=== PATIENT | male | born 1980 | race American Indian/Alaskan Native ===

== ENCOUNTER 2019-02-17 20:16 | Emergency (ER) | payer MEDICARE, OTHER ==
[~2019-02-17] VITALS: Ht 182.9 cm; Wt 77.1 kg
[~2019-02-17 20:16] MED LIST: ACETAMINOPHEN325 M1 PO; ANAFRANIL50 MG NG; ANAFRANIL50 MG PO; ATIVAN2 MG PO; CHLORPROMAZINE200 MG PO; CLOMIPRAMINE HC50 MG NG; CLOMIPRAMINE HC50 MG PO; CLONAZEPAM2 MG PO; CLOZAPINE100 MG PO; CLOZAPINE25 MG PO; CLOZARIL100 MG PO; DOXYCYCLINE HY100 MG PO; KEFLEX500 MG PO; NORCO 5-325 TA1 EACH PO; OLANZAPINE10 MG PO; PREDNISONE20 MG PO; TUMS X-STR300 MG PO; ZYPREXA10 M1 IM
--- OUTSIDE RECORDS SUMMARY | 2019-02-17 20:20 | XMS ---
PreManage Notification: CLOTILDE JONAS Security Taxicab Coordinator Events No recent Security Events currently on file [place] [facility] [place] [facility] Adult Mental Health Provider Current Foster Home PHONE: [phone] Guidelines Source: [facility] [place] Guidelines Date: 02/14/2018 Additional Information: Currently placed at [facility], contact Jean Marie Daugherty [phone].\T\nbsp; Legal guardian Evita Laurent [phone].\T\ nbsp; All prescription medications are being processed through [facility] [phone]. E.D. VISIT COUNT (12 MO.) [address] [place] [address] TOTAL 1 NOTE: Visits indicate total known visits. ED/UCC VISIT TRACKING (12 MO.) 02/17/2019 20:17 [facility] [place] TYPE: Emergency COMPLAINT: - UPSET STOMACH INPATIENT VISIT TRACKING (12 MO.) No inpatient visits to display in this time frame [email or web address]
[2019-02-17] MEDS ORDERED: BENZTROPINE ME0.5 MG PO (21:14)
== END 2019-02-18 01:52 | disposition home or self-care (01) ==
LOC: ED 20:16
DX: K52.9 Noninfective gastroenteritis and colitis, unspecified (principal); F17.200 Nicotine dependence, unspecified, uncomplicated; Z88.0 Allergy status to penicillin; Z88.6 Allergy status to analgesic agent; Z88.8 Allergy status to other drugs, medicaments and biological substances; Z79.899 Other long term (current) drug therapy
CPT/HCPCS: 80053; 81001; 83735; 85025; 87177; 87209; 87493; 96361; 96374; 99284-25; J2405; J7030; J7040

== ENCOUNTER 2019-02-22 12:51 | Emergency (ER) | payer MEDICARE, OTHER ==
[~2019-02-22] VITALS: Ht 182.9 cm; Wt 77.1 kg
[~2019-02-22 12:51] MED LIST changes: +BENZTROPINE ME0.5 MG PO
--- OUTSIDE RECORDS SUMMARY | 2019-02-22 12:54 | XMS ---
PreManage Notification: CLOTILDE JONAS Security [employer] Events No recent Security Events currently on file CRITERIA MET - [facility] - Has Care Guidelines - [facility] - 2 Visits in 30 Days CARE PROVIDERS ASHANTI MILLER Nurse Practitioner: Family 02/19/2019-Current PHONE: Unknown Maliha Dahl Adult Mental Health Provider Current [facility] PHONE: [phone] Guidelines Source: [facility] Guidelines Date: 02/20/2019 Additional Information: Mental health services are being provided by [facility].\T\nbsp; Please contact [facility] with mental health concerns.\T\nbsp; Bandar/Kamar Dailey: \T\nbsp; Rodrigue: [phone]. Care History Medical/Surgical 02/19/2019 [facility] - Patient is currently established with [facility]. If patient is seen in the ED during business hours. Please contact CHWs at [facility]. Care Recommendation: This patient has had 5 or more Emergency Department visits in the last 12 months.\T\nbsp; Patient requires education on the scope and purpose of the ED as an acute care provider not a Primary Care Provider and should not be utilized for chronic conditions.\T\nbsp; These are guidelines and the provider should exercise clinical judgment when providing care. E.D. VISIT COUNT (12 MO.) 2 [facility] TOTAL 2 NOTE: Visits indicate total known visits. ED/UCC VISIT TRACKING (12 MO.) 02/22/2019 12:51 [facility] [place] TYPE: Emergency COMPLAINT: - MEDICAL CLEARANCE 02/17/2019 20:[address] [facility] [place] TYPE: Emergency COMPLAINT: - UPSET STOMACH DIAGNOSES: - Other fci (current) drug therapy - Nausea with vomiting, unspecified - Allergy status to analgesic agent status - Noninfective gastroenteritis and colitis, unspecified - Allergy status to penicillin - Allergy status to other drugs, medicaments and biological substances status - Nicotine dependence, unspecified, uncomplicated INPATIENT VISIT TRACKING (12 MO.) No inpatient visits to display in this time frame [email or web address]
== END 2019-02-25 06:47 ==
LOC: ED 12:51
DX: F23 Brief psychotic disorder (principal); F17.200 Nicotine dependence, unspecified, uncomplicated; Z88.6 Allergy status to analgesic agent; Z88.0 Allergy status to penicillin; Z88.8 Allergy status to other drugs, medicaments and biological substances; Z79.899 Other long term (current) drug therapy
CPT/HCPCS: 36415; 80053; 80176; 81001; 84443; 85025; 99285; G0480; J2060

== ENCOUNTER 2019-04-13 15:48 | Emergency (ER) | payer MEDICARE, OTHER ==
[~2019-04-13] VITALS: Ht 182.9 cm; Wt 77.1 kg
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
[2019-04-13] MEDS ORDERED: OXCARBAZEPINE300 MG PO (16:29)
[2019-04-13] MEDS ORDERED: INVEGA SUS156 MG/1 M IM (16:30)
== END 2019-04-13 20:15 | disposition short-term general hospital (02) ==
LOC: ED 15:48
DX: F25.9 Schizoaffective disorder, unspecified (principal); F17.200 Nicotine dependence, unspecified, uncomplicated; Z88.0 Allergy status to penicillin; Z88.5 Allergy status to narcotic agent; Z88.6 Allergy status to analgesic agent
CPT/HCPCS: 80053; 80176; 81001; 84443; 85025; 99284; G0480

== ENCOUNTER → 2020-02-12 | Emergency (ER) | payer MEDICARE, OTHER ==
[~2020-02-12] VITALS: Ht 182.9 cm; Wt 77.1 kg
[~2020-02-12] MED LIST changes: +INVEGA SUS156 MG/1 M IM; +OXCARBAZEPINE300 MG PO
--- OUTSIDE RECORDS SUMMARY | ~2020-02-12 | XMS | Encounter Summary ---
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 + | | + + + + + + + | Performing | Address | City/State/Zipcode | Phone Number | | Organization | | | | + + + + + | [facility] DEPARTMENT | [address] | [place] [address] | | | PATHOLOGY | [address] | | | + + + + + CARBAMAZEPINE, PLASMA (10/31/2009 11:55 AM PST) + + + + + + | Component | Value | Ref Range | Performed | Pathologist | | | | | At | Signature | + + + + + + | CARBAMAZEPI | Combined. | 4.0 - 12.0 | [facility] | | | NE | | ug/mL | DEPARTMENT | | | CONCENTRATI | | | OF | | | ON | | | PATHOLOGY | | + + + + + + + + | Specimen | + + | Blood - Blood | + + + + + + + | Performing | Address | City/State/Zipcode | Phone Number | | Organization | | | | + + + + + | [facility] | [address] | [place] [address] | | | PATHOLOGY | [address] | | | + + + + + CBC, WITH DIFFERENTIAL (10/31/2009 11:55 AM PST) + +-------+ + + + | Component | Value | Ref Range | Performed | Pathologist | | | | | At | Signature | + +-------+ + + + | WHITE CELL | 5.2 | 4.4 - 11.0 K/cu | [facility] | | | COUNT | | mm | DEPARTMENT | | | | | | OF | | | | | | PATHOLOGY | | + +-------+ + + + | RED CELL | 4.88 | 4.50 - 5.90 | [facility] | | | COUNT | | M/cu mm | DEPARTMENT | | | | | | OF | | | | | | PATHOLOGY | | + +-------+ + + + | HEMOGLOBIN | 15.5 | 13.5 - 17.5 | [facility] | | | | | g/dL | DEPARTMENT | | | | | | OF | | | | | | PATHOLOGY | | + +-------+ + + + | HEMATOCRIT | 45.6 | 41.0 - 53.0 % | [facility] | | | | | | DEPARTMENT | | | | | | OF | | | | | | PATHOLOGY | | + +-------+ + + + | MCV | 93.5 | 80.0 - 96.0 fL | [facility] | | | | | | DEPARTMENT | | | | | | OF | | | | | | PATHOLOGY | | + +-------+ + + + | MCHC | 34.0 | 33.4 - 35.5 | [facility] | | | | | g/dL | DEPARTMENT | | | | | | OF | | | | | | PATHOLOGY | | + +-------+ + + + | RDW | 12.5 | 11.5 - 15.0 % | [facility] | | | | | | DEPARTMENT | | | | | | OF | | | | | | PATHOLOGY | | + +-------+ + + + | PLATELET | 233 | 150 - 400 K/cu | [facility] | | | COUNT | | mm | DEPARTMENT | | | | | | OF | | | | | | PATHOLOGY | | + +-------+ + + + + + | Specimen | + + | Blood - Blood | + + + + + + + | Performing | Address | City/State/Zipcode | Phone Number | | Organization | | | | + + + + + | [facility] | [address] | [place] [address] | | | PATHOLOGY | [address] | | | + + + + + TSH (10/31/2009 11:55 AM PST) + +-------+ + + + | Component | Value | Ref Range | Performed | Pathologist | | | | | At | Signature | + +-------+ + + + | TSH | 0.71 | 0.34 - 5.60 | [facility] | | | | | uIU/ml | REGIONAL | | | | | | LABORATORY | | + +-------+ + + + + + | Specimen | + + | Blood - Blood | + + + + + | Narrative | Performed At | + + + | [facility] ([facility]) | [facility] | | [facility] [place] [address] [facility] | REGIONAL | | [place] [address] | LABORATORY | + + + + + + + + | Performing | Address | City/State/Zipcode | Phone Number | | Organization | | | | + + + + + | [facility] | [address] | [place] [address] | | | LABORATORY | | | | + + + + + COMPLETE METABOLIC SET (NA,K,CL,CO2,BUN,CREAT,GLUC,CA,AST,ALT,BILI TOTAL,ALK PHOS,ALB,PROT TOTAL) (10/31/2009 11:55 AM PST) + +-------+ + + + | Component | Value | Ref Range | Performed | Pathologist | | | | | At | Signature | + +-------+ + + + | GLUCOSE, | 95 | 60 - 99 mg/dL | [facility] | | | PLASMA | | | DEPARTMENT | | | (LAB) | | | OF | | | | | | PATHOLOGY | | + +-------+ + + + | BUN, PLASMA | 9 | 6 - 20 mg/dL | [facility] | | | (LAB) | | | DEPARTMENT | | | | | | OF | | | | | | PATHOLOGY | | + +-------+ + + + | CREATININE | 0.92 | 0.70 - 1.30 | [facility] | | | PLASMA | | mg/dL | DEPARTMENT | | | (LAB) | | | OF | | | | | | PATHOLOGY | | + +-------+ + + + | TOTAL | 6.6 | 6.1 - 7.9 g/dL | [facility] | | | PROTEIN, | | | DEPARTMENT | | | PLASMA | | | OF | | | (LAB) | | | PATHOLOGY | | + +-------+ + + + | ALBUMIN, | 4.2 | 3.5 - 4.7 g/dL | [facility] | | | PLASMA | | | DEPARTMENT | | | (LAB) | | | OF | | | | | | PATHOLOGY | | + +-------+ + + + | CALCIUM, | 8.9 | 8.6 - 10.2 | [facility] | | | PLASMA | | mg/dL | DEPARTMENT | | | (LAB) | | | OF | | | | | | PATHOLOGY | | + +-------+ + + + | BILIRUBIN | 0.6 | 0.3 - 1.2 mg/dL | [facility] | | | TOTAL | | | DEPARTMENT | | | | | | OF | | | | | | PATHOLOGY | | + +-------+ + + + | ALK PHOS | 112 | 53 - 128 U/L | [facility] | | | | | | DEPARTMENT | | | | | | OF | | | | | | PATHOLOGY | | + +-------+ + + + | AST(SGOT) | 20 | 15 - 41 U/L | [facility] | | | | | | DEPARTMENT | | | | | | OF | | | | | | PATHOLOGY | | + +-------+ + + + | SODIUM, | 142 | 134 - 143 | [facility] | | | PLASMA | | mmol/L | DEPARTMENT | | | (LAB) | | | OF | | | | | | PATHOLOGY | | + +-------+ + + + | POTASSIUM, | 3.7 | 3.4 - 5.0 | [facility] | | | PLASMA | | mmol/L | DEPARTMENT | | | (LAB) | | | OF | | | | | | PATHOLOGY | | + +-------+ + + + | CHLORIDE, | 106 | 97 - 108 mmol/L | [facility] | | | PLASMA | | | DEPARTMENT | | | (LAB) | | | OF | | | | | | PATHOLOGY | | + +-------+ + + + | TOTAL CO2, | 30 | 23 - 31 mmol/L | [facility] | | | PLASMA | | | DEPARTMENT | | | (LAB) | | | OF | | | | | | PATHOLOGY | | + +-------+ + + + | ALT (SGPT) | 17 | 13 - 48 U/L | [facility] | | | | | | DEPARTMENT | | | | | | OF | | | | | | PATHOLOGY | | + +-------+ + + + + + | Specimen | + + | Blood - Blood | + + + + + + + | Performing | Address | City/State/Zipcode | Phone Number | | Organization | | | | + + + + + | [facility] | [address] | [place] [address] | | | PATHOLOGY | [address] | | | + + + + + documented in this encounter Visit Diagnoses + + | Diagnosis | + + | Psychosis (HCC) - Primary Unspecified psychosis | + + | Schizoaffective disorder (HCC) Schizoaffective disorder, unspecified condition | + + | Alcohol abuse Alcohol abuse, unspecified | + + | Other disorder of impulse control | + + documented in this encounter Administered Medications + +--------+ +--------+------+------+ | Medication Order | MAR | Action | Dose | Rate | Site | | | Action | Date | | | | + +--------+ +--------+------+------+ | carbamazepine (aka TEGRETOL) | Given | 11/01/19 | 100 mg | | | | suspension 100 mg 100 mg, oral, | | 10 12:58 | | | | | THREE TIMES DAILY, First dose on | | PM PST | | | | | 10/31/09 at 1045, Until | | | | | | | Discontinued | | | | | | + +--------+ +--------+------+------+ +---+---+ | | | +---+---+ + +-------+ +--------+---+---+ | Carbamazepine Susp 100 mg 100 | Given | 11/06/19 | 100 mg | | | | mg, oral, THREE TIMES DAILY, | | 10 8:10 | | | | | First dose (after last | | AM PDT | | | | | modification) on Tue10/31/09 at | | | | | | | 1615, Until Discontinued | | | | | | + +-------+ +--------+---+---+ +-------+ +--------+---+---+ | Given | 11/05/19 | 100 mg | | | | | 10 10:00 | | | | | | PM PDT | | | | +-------+ +--------+---+---+ | Given | 11/05/19 | 100 mg | | | | | 10 4:00 | | | | | | PM PDT | | | | +-------+ +--------+---+---+ +---+---+ | | | +---+---+ + +-------+ +------+---+---+ | clonazepam (aka KLONOPIN) | Given | 11/01/19 | 2 mg | | | | tablet 2 mg 2 mg, oral, TWICE | | 10 12:48 | | | | | DAILY, First dose on Tue10/31/09 | | PM PST | | | | | at 1045, Until Discontinued | | | | | | + +-------+ +------+---+---+ +---+---+ | | | +---+---+ + +-------+ +------+---+---+ | clonazepam (aka KLONOPIN) | Given | 11/06/19 | 2 mg | | | | tablet 2 mg 2 mg, oral, TWICE | | 10 8:10 | | | | | DAILY, First dose (after last | | AM PDT | | | | | modification) on Tue10/31/09 at | | | | | | | 2100, Until Discontinued | | | | | | + +-------+ +------+---+---+ +-------+ +------+---+---+ | Given | 11/05/19 | 2 mg | | | | | 10 9:00 | | | | | | PM PDT | | | | +-------+ +------+---+---+ | Given | 11/05/19 | 2 mg | | | | | 10 8:21 | | | | | | AM PDT | | | | +-------+ +------+---+---+ +---+---+ | | | +---+---+ + +-------+ +--------+---+---+ | clozapine (aka CLOZARIL) tablet | Given | 11/01/19 | 200 mg | | | | 200 mg 200 mg, oral, DAILY, | | 10 12:47 | | | | | First dose on Tue10/31/09 at | | PM PST | | | | | 1045, Until Discontinued | | | | | | + +-------+ +--------+---+---+ +---+---+ | | | +---+---+ + +-------+ +--------+---+---+ | clozapine (aka CLOZARIL) tablet | Given | 11/06/19 | 200 mg | | | | 200 mg 200 mg, oral, EVERY | | 10 8:10 | | | | | MORNING, First dose on Sat | | AM PDT | | | | | 11/01/09 at 0900, Until | | | | | | | Discontinued | | | | | | + +-------+ +--------+---+---+ +-------+ +--------+---+---+ | Given | 11/05/19 | 200 mg | | | | | 10 8:21 | | | | | | AM PDT | | | | +-------+ +--------+---+---+ | Given | 11/04/19 | 200 mg | | | | | 10 8:18 | | | | | | AM PDT | | | | +-------+ +--------+---+---+ +---+---+ | | | +---+---+ + +-------+ +--------+---+---+ | clozapine (aka CLOZARIL) tablet | Given | 11/05/19 | 250 mg | | | | 250 mg 250 mg, oral, AT | | 10 10:00 | | | | | BEDTIME, First dose on Tue | | PM PDT | | | | | 10/31/09 at 2200, Until | | | | | | | Discontinued | | | | | | + +-------+ +--------+---+---+ +-------+ +--------+---+---+ | Given | 11/04/19 | 250 mg | | | | | 10 9:10 | | | | | | PM PDT | | | | +-------+ +--------+---+---+ | Given | 11/03/19 | 250 mg | | | | | 10 10:00 | | | | | | PM PDT | | | | +-------+ +--------+---+---+ +---+---+ | | | +---+---+ + +-------+ +------+---+---+ | lorazepam (aka ATIVAN) tablet 2 | Given | 11/05/19 | 2 mg | | | | mg 2 mg, oral, EVERY 4 HOURS | | 10 10:23 | | | | | NEEDED, Starting Tue10/31/09 at | | PM PDT | | | | | 1036, Until Tue11/05/09 at 1529, | | | | | | | moderate to severe anxiety | | | | | | + +-------+ +------+---+---+ +---+---+ | | | +---+---+ + +-------+ +-------+---+---+ | olanzapine zydis oral | Given | 11/05/19 | 10 mg | | | | disintegrating (aka ZYPREXA | | 10 10:23 | | | | | ZYDIS) tablet 10 mg 10 mg, oral, | | PM PDT | | | | | EVERY 2 HOURS NEEDED, | | | | | | | Starting Tue10/31/09 at 1036, | | | | | | | Until Tue11/05/09 at 1529, mild | | | | | | | to moderate agitation | | | | | | + +-------+ +-------+---+---+ +---+---+ | | | +---+---+ + +-------+ +--------+---+---+ | trazodone (aka LYNENTTE) tablet | Given | 11/05/19 | 100 mg | | | | 100 mg 100 mg, oral, AT BEDTIME | | 10 10:23 | | | | | NEEDED, Starting 10/31/09 | | PM PDT | | | | | at 1036, Until 11/05/09 at | | | | | | | 1529, insomnia | | | | | | + +-------+ +--------+---+---+ +---+---+ | | | +---+---+ documented in this encounter
--- OUTSIDE RECORDS SUMMARY | ~2020-02-12 | XMS | Encounter Summary ---
Demographics + + + | Address | [address] | | | [place] [address] | + + + | Home Phone | | + + + | Preferred Language | Unknown | + + + | Marital Status | Single | + + + | [employer] Affiliation | NON | + + + | Race | White | + + + | Ethnic Group | Not or | + + + Author + + + | Author | [facility] | + + + | Organization | [facility] | + + + | Address | Unknown | + + + | Phone | Unavailable | + + + Support + + + + + | Name | Relationship | Address | Phone | + + + + + | Lanny Stern | ECON | [address] | | | | | [place] | | | | | [address] | | + + + + + | Evita Coffey | ECON | Unknown | | + + + + + Care Team Providers + +------+ + | Care Hull Molder Name | Role | Phone | + +------+ + PCP | Unavailable | + +------+ + Encounter Details +--------+ + + + + | Date | Type | Department | Care Team | Description | +--------+ + + + + | 09/27/ | Procedure - | UNKNOWN DEPARTMENT | Other, Faculty | EEG | | 2000 | | [address] [facility] | [phone] | | | | Transcribed | [address] | | | | | | [place], [place] | | | | | | [address] | | | +--------+ + + + [...] throughout this recording reveals a poorly formed ugh-oe-cnehaxyq voltage posterior rhythm ranging between 7 and [...] and no electrographic seizures were encountered. Guy oWodard M.D. [facility] / [id number] / [id number] / [id number] / [id number] C:10/12/2000 documented in this encou nter Plan [...] | Other, Faculty - 09/27/2000 12:00 AM [facility] CLINICAL NEUROPHYSIOLOGY | | | | 24-HOUR [...] recording reveals a poorly formed | | oci-iv-vsznrxeo voltage posterior rhythm ranging between 7 and [...] | | MCS / HS | | [id number] / [id number] / [id number] / [id number] | | | | | | C:10/12/2000 | | | + + documented in this encounter Visit Diagnoses Not on filedocumented in this encounter"
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
--- OUTSIDE RECORDS SUMMARY | ~2020-02-12 | XMS | Encounter Summary ---
Demographics + + + | Address | [address] | | | [place] [address] | + + + | Home Phone | | + + + | Preferred Language | Unknown | + + + | Marital Status | Single | + + + | Synagogue Affiliation | NON | + + + | Race | White | + + + | Ethnic Group | Not or | + + + Author + + + | Author | [facility] | + + + | Organization | [facility] | + + + | Address | Unknown | + + + | Phone | Unavailable | + + + Support + + + + + | Name | Relationship | Address | Phone | + + + + + | Lanny Stern | ECON | [address] | | | | | [place] | | | | | [address] | | + + + + + | Evita Coffey | ECON | Unknown | | + + + + + Care Team Providers + +------+ + | Care Production Engineer Name | Role | Phone | + +------+ + PCP | Unavailable | + +------+ + Encounter Details +--------+ + + + + | Date | Type | Department | Care Team | Description | +--------+ + + + + | 09/26/ | Procedure - | UNKNOWN DEPARTMENT | Other, Faculty | EEG | | 2000 | | [address] [facility] | [phone] | | | | Transcribed | [address] | | | | | | [place], [place] | | | | | | [address] | | | +--------+ + + + [...] + documented as of this encounter Progress Osmel Simental, Faculty - 09/26/2000 12:00 AM PSTAssociated Order(s): EEG ROUTINE CLINICAL NEUROPHYSIOLOGY 24-HR EEG VIDEO RECORDING DATE OF RECORDING: September 26, 2000 CLINICAL NEUROPHYSIOLOGY NO: [id number] INTERPRETATION: DETAIL: During rare alert portions of the recording, rhythms in an alpha band width in the 9-10 Hz range of median amplitude can be seen posteriorly while mixed irregular 4-7 Hz lower amplitude theta activity can be seen more anteriorly, symmetrically, and bilaterally. Some lower amplitude 16-18 Hz beta activity can also be seen super imposed anteriorly, symmetrically, and bilaterally. Most of the recording was obtained with the patient drowsy and asleep. With the patient drowsy, the above described alpha activity becomes even less well formed, and slower rhythms in the 3-5 Hz range can be also be seen at a mixed more anteriorly, symmetrically, and bilaterally. Surges of rhythmic 6 Hz theta activity can also be seen in the bitemporal head regions usually occurring synchronously, bilaterally, but shifting in prominence between the two hemispheres and lasting for periods upwards of 1 to 2 seconds. As the patient lapsed into stage II of sleep, prominent vertex V waves, spindling activities could be seen on a background of mixed theta activity and slow rhythms in the 3-4 Hz range. Stages II, III, and IV sleep were recorded, with characteristic changes. No events were detected on the computer event detection program, and the button was not pushed to record an event. Video monitoring confirmed that the patient was drowsy and asleep throughout most of the recording. No events of hallucinations were noted in the video recording. IMPRESSION: This is a normal electroencephalogram recorded for 24 hours including alert wakefulness, drowsiness, stage II, III, and IV of sleep. No epileptiform discharges were noted. Nino Capps M.D. DECLAN / BRYANT [id number] / [id number] / [id number] / documented in this encou nter Plan of Treatment Not on filedocumented as of this encounter Procedures + +--------+ + + + | Procedure Name | Priori | Date/Time | Associated Diagnosis | Comments | | | ty | | | | + +--------+ + + + | EEG ROUTINE | | 09/26/2000 | | Results for this | | | | 12:00 AM | | procedure are in the | | | | PST | | results section. | + +--------+ + + + documented in this encounter Results EEG ROUTINE (09/26/2000 12:00 AM PST) + + | Procedure Note | + + | Other, Faculty - 09/26/2000 12:00 AM PST | | CLINICAL NEUROPHYSIOLOGY | | | | 24-HR EEG VIDEO RECORDING | | | | DATE OF RECORDING: September 26, 2000 | | | | CLINICAL NEUROPHYSIOLOGY NO: [id number] | | | | | | INTERPRETATION: | | | | DETAIL: During rare alert portions of the recording, rhythms in an alpha | | band width in the 9-10 Hz range of median amplitude can be seen posteriorly | | while mixed irregular 4-7 Hz lower amplitude theta activity can be seen | | more anteriorly, symmetrically, and bilaterally. Some lower amplitude | | 16-18 Hz beta activity can also be seen super imposed anteriorly, | | symmetrically, and bilaterally. Most of the recording was obtained with | | the patient drowsy and asleep. With the patient drowsy, the above | | described alpha activity becomes even less well formed, and slower rhythms | | in the 3-5 Hz range can be also be seen at a mixed more anteriorly, | | symmetrically, and bilaterally. Surges of rhythmic 6 Hz theta activity can | | also be seen in the bitemporal head regions usually occurring | | synchronously, bilaterally, but shifting in prominence between the two | | hemispheres and lasting for periods upwards of 1 to 2 seconds. As the | | patient lapsed into stage II of sleep, prominent vertex V waves, spindling | | activities could be seen on a background of mixed theta activity and slow | | rhythms in the 3-4 Hz range. Stages II, III, and IV sleep were recorded, | | with characteristic changes. | | | | No events were detected on the computer event detection program, and the | | button was not pushed to record an event. Video monitoring confirmed that | | the patient was drowsy and asleep throughout most of the recording. No | | events of hallucinations were noted in the video recording. | | | | IMPRESSION: This is a normal electroencephalogram recorded for 24 hours | | including alert wakefulness, drowsiness, stage II, III, and IV of sleep. | | No epileptiform discharges were noted. | | | | | | | | | | Nino Capps M.D. | | | | DS / HS | | [id number] / [id number] / [id number] / | | | | | | | + + documented in this encounter Visit Diagnoses Not on filedocumented in this encounter"
--- OUTSIDE RECORDS SUMMARY | ~2020-02-12 | XMS | Encounter Summary ---
Demographics + + + | Address | [address] | | | [place] [address] | + + + | Home Phone | | + + + | Preferred Language | Unknown | + + + | Marital Status | Single | + + + | Mandaen Affiliation | NON | + + + | Race | White | + + + | Ethnic Group | Not or | + + + Author + + + | Author | [facility] | + + + | Organization | [facility] | + + + | Address | Unknown | + + + | Phone | Unavailable | + + + Support + + + + + | Name | Relationship | Address | Phone | + + + + + | Lanny Stern | ECON | [address] | | | | | [place] | | | | | [address] | | + + + + + | Evitaduarte Coffey | ECON | Unknown | | + + + + + Care Team Providers + +------+ + | Care Tongue And Quarter Stitcher Name | Role | Phone | + +------+ + PCP | Unavailable | + +------+ + Encounter Details +--------+ + + + + | Date | Type | Department | Care Team | Description | +--------+ + + + + | 06/03/ | Discharge | Allergy Clinic at | Summary, Discharge | D/C Summary ODDS | | 1996 | Summary-Tra | [facility] [address] | | | | | nscribed | [address] | | | | | | [place] [address] | | | | | | [address] | | | | | | [place], [place] | | | | | | [address] | | | | | | [phone] | | | +--------+ + + + [...] as of this encounter Discharge Summaries Interface, Sea Shell Gatherer In - 10/04/2006 1:01 AM PST [address] [address] [facility] MEDICAL SUMMARY OF HOSPITALIZATION Med Rec No.: [id number] Admission Date: 05/27/97 Name: Willi Toledo Discharge Date: 06/03/97 STAFF PHYSICIAN: Ramos Ojeda M.D. Director Trading, Psychiatry DSM-IV DIAGNOSIS: AXIS I:Schizophrenia, undifferentiated. AXIS II:Deferred. AXIS III:No active medical problems. AXIS IV:Institutional living environment, court commitment. AXIS V:Global Assessment of Functioning on admission 25, Global Assessment of Functioning on discharge 25. PRINCIPAL PROCEDURE: Psychopharmacotherapy. ADDITIONAL PROCEDURE(S): 1. Electroencephalography. 2. Magnetic resonance imaging of the brain. REASON FOR ADMISSION: Mr. Willi Toledo is an 17-year-old male who is civilly committed for the treatment of mental illness. He has been treated at [facility] since late January 1997. His mental status was essentially unchanged from February 13 to the date of admission. He is referred to [facility] for evaluation and treatment recommendations. HISTORY OF PRESENT ILLNESS: The patient apparently had a normal course of development through childhood and had been an average student in school until the age of 15 years. It should be noted, however, that the patient reports that both parents were heavy alcohol drinkers. The question of alcohol exposure is relevant. The patient reports that one day he went to school and became very afraid. He was initially unaware of the reason why he felt this way, but later realized that it was because the way the people were sniffing. He also reports being able to "put things together" around this time period. By this statement he refers to a pattern of idiosyncratic reasoning and magical thinking. He reports hearing names on the radio which are actually codes for other names and he relates this to "anagrams" which have special significance, although he does not elaborate on this point. He also began to interpret ordinary events in special ways. For example, he reports at one time seeing a rabbit and realizing this meant that he should jump into cold water. There is a strong element of taoism perseveration in the patient's thought content. He reports getting messages from God, most of these messages take the form of ordinary events such as things falling to the floor or birds flying in the air. He denies experiencing auditory hallucinations. He states that he has had a vision of the world on fire, but aside from this, he denies visual hallucination. He does not give a history of euphoria accompanied by extended periods of insomnia. He does not give a history of depressive episodes or suicidal attempts. He denies thought broadcasting or thought insertion. He states that his only drugs of abuse in the past have been marijuana and ethanol. He denies I.V. drug use. He states that at one time he was smoking marijuana with friends and a substance was sprayed onto the marijuana cigarettes, but he does not know what that substance was. PAST PSYCHIATRIC HISTORY: No history of psychiatric illness prior to 15 years of age as noted above. PAST MEDICAL HISTORY: The patient reports sustaining a head injury when he was [age] years old. He denies loss of consciousness associated with that injury. Transfer notes accompanying the patient to [facility] mention an abnormal EEG obtained at a hospital in [place], [place]. MEDICATIONS: While at [facility], the patient was tried on a variety of medications including neuroleptics, mood stabilizers, and anti-depressants. The patient medication regimen as gleaned from transfer notes is as follows: 1. Olanzapine 5 mg from 02/13/97 to 03/04/97. 2. Olanzapine 10 mg from 02/22/97 to 03/06/97. On 03/06/97 Olanzapine was discontinued. 3. Risperdal 6 mg per day. 4. Risperdal 8 mg per day, on 04/04/97, discontinued on 04/08/97. 5. Olanzapine 10 mg per day reinstituted 04/08/97 to 04/24/97 at that point Olanzapine was tapered off. 6. Prolixin 10 mg per day started at the taper of Olanzapine, increased to 30 mg a day by 05/21/97. At that Prolixin was discontinued. 7. Thorazine 300 mg per day was started 05/21/97. During that period of time a trial of Depakote was initiated in conjunction with neuroleptics. 8. Depakote at 1,000 mg per day was begun on 03/18/97. It was increased to 1,500 mg per day on 04/05/97, but by 04/12/97 Depakote was tapered off in favor of [place] therapy. 9. [place] was begun at 600 mg per day, increased to 900 mg per day on 04/19/97, reduced to 600 mg per day on 05/06/97 and discontinued around 05/16/97 when Depakote at 1,000 mg per day was restarted. 10. Fluoxetine in conjunction with [place] and neuroleptics was begun on 04/16/97. From 04/16/97 to 04/24/97 the dose was 10 mg. From 04/24/97 to 05/07/97 the dose was 20 mg. Fluoxetine was discontinued on 05/07/97. ALLERGIES: The patient report an allergy to Erythromycin. The patient reports dystonic reactions to Navane and Risperdal. SOCIAL HISTORY: The patient had lived with his mother and father. He states that he is not able to return to his parent's house in [place] upon his discharge. He reports being an average student with no legal problems until he was 15 years old. He reports being sexually active since the age of 12. He estimates having had six sexual partners, all female. FAMILY HISTORY: The patient's mother and father have used Ethanol heavily and chronically. The patient reports no other mental illness in his immediate family. MENTAL STATUS EXAMINATION: The patient is alert and oriented to person. He states that he is in [place] at the "[facility]." He identifies the date incorrectly as 05/15/97. He is cooperative. He is inattentive and easily distracted. He is clean and well groomed. His speech is spontaneous. He speaks in rapid and garbled bursts. There is no pressure of speech. The thought process is tangential. His thought content is notable for frequent references to getting messages from God and finding special meaning in ordinary events. He denies having special obregon. He denies auditory and visual hallucinations. He denies suicidal and homicidal ideations. He denies ideas of reference. He endorses paranoia over several subjects. He states his mood is depressed. His affect is silly and inappropriate. His attention and concentration are impaired. He registration is 3/3 and recall is 2/3 at 5 minutes. Abstract reasoning is grossly intact. His insight and judgment are impaired. PHYSICAL EXAMINATION: HEENT: The head is normocephalic with no evidence of head trauma. Pupils were equal, round, and reactive to light and accommodation. Extraocular movements intact. Nose, ears, and oropharynx are without lesions. NECK: Supple without thyromegaly or lymphadenopathy. LUNGS: Clear to auscultation bilaterally. CARDIAC: Regular rate and rhythm with no adventitial sounds. ABDOMEN: Soft, nontender, nondistended with normoactive bowel sounds. GENITALIA: External genitalia are without lesions or discharge. EXTREMITIES: Notable for multiple healing wounds on the soles of both feet which are noted to have occurred when he was running barefoot following escape from his previous treatment facility. NEUROLOGIC: Cranial nerves II through XII are intact. Power is 5/5 in all extremities. There are no sensory deficits and station and gait are normal. LABORATORY DATA: Blood chemistry including renal tests and liver function tests are within normal limits. CBC is unremarkable. Urinalysis is unremarkable. Urine drug screen is negative. The serum RPR is nonreactive. TSH level is 2.0 which is within normal limits. HOSPITAL COURSE: The patient was admitted to [facility] for assessment, observation, and treatment. An MRI of the brain was obtained. This study revealed the presence of a small old resolved hemorrhage in the posterior right parietal cortex. Otherwise, the study was unremarkable. The lateral ventricles were of normal size. An electroencephalogram was obtained. No abnormal electrical activity was detected. The patient's mental status continued unchanged. He made references at times to "putting things together." He was noted at one point to suddenly become tearful while eating lunch. Initially, he did not elaborate as to why he became tearful. However, the following day he stated that he began crying because he suddenly realized what it must have felt like for the sasha Shahram to fall from the graces of God and become Satan. He made references to figuring out new ways to fly and to receiving more messages related to codes and anagrams. His activity level was noted to be essentially normal. He slept well. No signs of betsy were observed. During the last four days of his hospitalization, the patient frequently refused food and drink. He stated that he believed the food and drink were contaminated with feces. He was persuaded to eat when informed that consistent refusal to take food and water may result in the placement of a nasogastric tube. The patient was uncooperative with neuropsychological testing. He could not be persuaded into cooperating with neuropsychological tests. Following completion of the MRI and EEG studies a diagnosis of undifferentiated schizophrenia was made. Patient was begun on Olanzapine 5 mg b.i.d. for one day. The dose was then increased to 10 mg b.i.d. The patient was discharged to [facility] on 06/03/97. Medical workup at [facility] failed to reveal any organic cause of his current mental status. It is our opinion that a trial of Olanzapine at high doses (20 to 30 mg per day) for up to four weeks be initiated. Should this fail to result in improvement, a sustained trial of another neuroleptic at relatively high doses should be attempted. Should that also fail, a trial of Clozaril may be indicated. CONDITION ON DISCHARGE: See above. DISCHARGE MEDICATION(S): 1. Olanzapine 10 mg p.o. b.i.d. DISCHARGE INSTRUCTION(S): Diet: General. Activity: As tolerated. Followup: The patient is transferred to [facility] where he is court committed for treatment of mental illness. Doni Soriano M.D. Resident, Psychiatry Ramos Ojeda M.D. Director Trading, Psychiatry NAZARIO/myranda P FAX: [phone] cc: [place] [phone] documented in this encounter Plan of Treatment Not on filedocumented as of this encounter Visit Diagnoses Not on filedocumented in this encounter
--- OUTSIDE RECORDS SUMMARY | ~2020-02-12 | XMS | Clinical Summary ---
Demographics + + + | Address | [address] | | | [place] [address] | + + + | Home Phone | | + + + | Preferred Language | Unknown | + + + | Marital Status | Single | + + + | Orthodox Affiliation | 1013 | + + + | Race | Unknown | + + + | Ethnic Group | Unknown | + + + Author + + + | Author | [facility] | | | and [place] | + + + | Organization | [facility] | | | and [...] Team Providers + +------+ + | Care Pumpman Name | Role | Phone | + +------+ + PCP | Unavailable | + +------+ + Allergies Not on File Medications Not on file Active Problems Not on file Social History + +-------+ +--------+------+ | Tobacco [...] on file | | + + + Last Filed Vital Signs Not on file Plan of Treatment + + +-------+ + | Health Maintenance | Due Date | Last | Comments | | | | Done | | + + +-------+ + | Vaccine: | | | | | Dtap/Tdap/Td (1 - | 8 | | | | Tdap) | | | | + + +-------+ + | Vaccine: Influenza | | | | | (Season Ended) | 0 | | | + + +-------+ + Results Not on filefrom Last 3 Months"
--- OUTSIDE RECORDS SUMMARY | ~2020-02-12 | XMS | Encounter Summary ---
Demographics + + + | Address | [address] | | | [place] [address] | + + + | Home Phone | | + + + | Preferred Language | Unknown | + + + | Marital Status | Single | + + + | Mandaeism Affiliation | NON | + + + [...] [place] | | | | | [address] | | + + + + + | Evita Coffey | ECON | Unknown | | + + + + + Care Team Providers + +------+ + | Care Floor Renovator Name | Role | Phone | + +------+ + PCP | Unavailable | + +------+ + Encounter Details +--------+ + + + + | Date | Type | Department | Care Team | Description | +--------+ + + + + | 09/24/ | Results | | Other, Faculty | | | 2000 | Only | | [phone] | | +--------+ + + + + [...] | + + + + + | [facility] DEPARTMENT OF | [address] [facility] | [place] [address] | | | PATHOLOGY | [address] | | | + + + + + | [facility] DEPARTMENT OF | [address] [facility] [facility] | [place] [address] | | | PATHOLOGY | [address] [...] [facility] DEPARTMENT OF | [address] [facility] [facility] | [place] [address] | | | PATHOLOGY | [address] | | | + + + + + | [facility] DEPARTMENT OF | [address] | [place] [address] | | | PATHOLOGY | [address] [...] | + + + + + | [facility] DEPARTMENT OF | [address] | [place] [address] | | | PATHOLOGY | [address] | | | + + + + + | [facility] | [address] | [place] [address] | | | PATHOLOGY | [address] [...] | Drug of abuse tests performed at [facility] are for | | | medical diagnosis and treatment only. Specimen | | | collection procedures are not designed to meet | | | required criteria for legal or "benefit" testing. | | + + + + + + + + | Performing | Address | City/State/Zipcode | Phone Number | | Organization | | | | + + + + + | [facility] | [address] | [place] [address] | | | LABORATORY | | | [...] DEPARTMENT OF | [address] | [place] [address] | | | PATHOLOGY | [address] | | | + + + + + | [facility] DEPARTMENT OF | [address] | [place] [address] | | | PATHOLOGY | [address] [...] | | | DEPARTMENT | | | ACDE | | | OF | | | [...] | + + + + + | [facility] DEPARTMENT OF | [address] | [place] [address] | | | PATHOLOGY | [address] | | | + + + + + | [facility] DEPARTMENT OF | [address] | [place] [address] | | | PATHOLOGY | [address] | | | + + + + + documented in this encounter Visit Diagnoses Not on filedocumented in this encounter
--- OUTSIDE RECORDS SUMMARY | ~2020-02-12 | XMS | Encounter Summary ---
Demographics + + + | Address | [address] | | | [place] [address] | + + + | Home Phone | | + + + | Preferred Language | Unknown | + + + | Marital Status | Single | + + + | Zoroastrian Affiliation | NON | + + + | Race | White | + + + | Ethnic Group | Not or | + + + Author + + + | Author | [facility] | + + + | Organization | [facility] | + + + | Address | Unknown | + + + | Phone | Unavailable | + + + Support + + + + + | Name | Relationship | Address | Phone | + + + + + | Lanny Stern | ECON | [address] | | | | | [place] | | | | | [address] | | + + + + + | Evita Coffey | ECON | Unknown | | + + + + + Care Team Providers + +------+ + | Care Editor News Name | Role | Phone | + +------+ + PCP | Unavailable | + +------+ + Encounter Details +--------+ + + + + | Date | Type | Department | Care Team | Description | +--------+ + + + + | 05/27/ | Results | Registration [id number] | | | | 1997 | Only | [address] | | | | | | [address] Mailcode: [id number] | | | | | | [place], [place] | | | | | | [address] | | | | | | [phone] | | | +--------+ + + + [...] | + +--------+ + + + | CHEMISTRY TESTS 4 | Routin | 05/28/1997 | | Results for this | | | e | 8:00 AM | | procedure are in the | | | | PDT | | results section. | + +--------+ + + + | IMMUNOLOGY TESTS 2 | Routin | 05/28/1997 | | Results for this | | | e | 8:00 AM | | procedure are in the | | | | PDT | | results section. | + +--------+ + + + | CBC TESTS 2 | Routin | 05/28/1997 | | Results for this | | | e | 8:00 AM | | procedure are in the | | | | PDT | | results section. | + +--------+ + + + | MISCELLANEOUS | Routin | 05/28/1997 | | Results for this | | CHEMISTRY TESTS | e | 8:00 AM | | procedure are in the | | | | PDT | | results section. | + +--------+ + + + | THERAPEUTIC DRUG | Routin | 05/27/1997 | | Results for this | | TESTS 2 | e | 8:00 PM | | procedure are in the | | | | PDT | | results section. | + +--------+ + + + | URINALYSIS TESTS | Routin | 05/27/1997 | | Results for this | | | e | 8:00 PM | | procedure are in the | | | | PDT | | results section. | + +--------+ + + + documented in this encounter Results MISCELLANEOUS CHEMISTRY TESTS (05/28/1997 8:00 AM PDT) + + + + + + | Component | Value | Ref Range | Performed | Pathologist | | | | | At | Signature | + + + + + + | TSH | 2. | mIU/ML | | | + + + + + + + + | Specimen | + + | | + + + + + + + | Performing | Address | City/State/Zipcode | Phone Number | | Organization | | | | + + + + + | [facility] | [address] | [place] [address] | | | PATHOLOGY | [address] | | | + + + + + IMMUNOLOGY TESTS 2 (05/28/1997 8:00 AM PDT) + +-------+ + + + | Component | Value | Ref Range | Performed | Pathologist | | | | | At | Signature | + +-------+ + + + | RPR SRM | NR | | | | | QUAL | | | | | + +-------+ + + + + + | Specimen | + + | | + + + + + + + | Performing | Address | City/State/Zipcode | Phone Number | | Organization | | | | + + + + + | [facility] | [address] | [place] [address] | | | PATHOLOGY | [address] | | | + + + + + CBC TESTS 2 (05/28/1997 8:00 AM PDT) + + + + + + | Component | Value | Ref Range | Performed | Pathologist | | | | | At | Signature | + + + + + + | WHITE CELL | 6.9 | K/CU MM | | | | COUNT | | | | | + + + + + + | RED CELL | 4.42 | M/CU MM | | | | COUNT | | | | | + + + + + + | HEMOGLOBIN | 14.2 | GM/DL | | | + + + + + + | HEMATOCRIT | 41.2 | % | | | + + + + + + | MCV | 93.2 | FL | | | + + + + + + | MCH | 32.2 | PG | | | + + + + + + | MCHC | 34.5 (H) | GM/DL | | | + + + + + + | RDW | 12. | % | | | + + + + + + | PLATELET | 212. | K/CU MM | | | | COUNT | | | | | + + + + + + | MPV | 6.8 (L) | FL | | | + + + + + + | NEUTROPHIL | 64. | % | | | | % | | | | | + + + + + + | LYMPHOCYTE | 23. (L) | % | | | | % | | | | | + + + + + + | MONOCYTE % | 10. (H) | % | | | + + + + + + | EOS % | 3. | % | | | + + + + + + | BASO % | 0. | % | | | + + + + + + | NEUTROPHIL | 4.4 | K/CU MM | | | | # | | | | | + + + + + + | LYMPHOCYTE | 1.6 | K/CU MM | | | | # | | | | | + + + + + + | MONOCYTE # | 0.7 | K/CU MM | | | + + + + + + | EOS # | 0.2 | K/CU MM | | | + + + + + + | BASO # | 0. | K/CU MM | | | + + + + + + + + | Specimen | + + | | + + + + + + + | Performing | Address | City/State/Zipcode | Phone Number | | Organization | | | | + + + + + | [facility] | [address] | [place] [address] | | | PATHOLOGY | [address] | | | + + + + + CHEMISTRY TESTS 4 (05/28/1997 8:00 AM PDT) + + + + + + | Component | Value | Ref Range | Performed | Pathologist | | | | | At | Signature | + + + + + + | SODIUM, | 139. | mmol/l | | | | PLASMA | | | | | | (LAB) | | | | | + + + + + + | POTASSIUM, | 3.9 | mmol/l | | | | PLASMA | | | | | | (LAB) | | | | | + + + + + + | CHLORIDE, | 104. | mmol/l | | | | PLASMA | | | | | | (LAB) | | | | | + + + + + + | TOTAL CO2, | 30. (H) | mmol/l | | | | PLASMA | | | | | | (LAB) | | | | | + + + + + + | BUN, PLASMA | 11. | mg/dL | | | | (LAB) | | | | | + + + + + + | CREATININE | 1. | mg/dL | | | | PLASMA | | | | | | (LAB) | | | | | + + + + + + | GLUCOSE, | 73. | mg/dL | | | | PLASMA | | | | | | (LAB) | | | | | + + + + + + | CALCIUM, | 8.9 | mg/dL | | | | PLASMA | | | | | | (LAB) | | | | | + + + + + + | PHOSPHORUS, | 3.7 | mg/dL | | | | PLASMA | | | | | | (LAB) | | | | | + + + + + + | AST(SGOT) | 16. | U/L | | | + + + + + + | ALT (SGPT) | 17. | U/L | | | + + + + + + | ALK PHOS | 94. | U/L | | | + + + + + + | BILIRUBIN | 0.5 | mg/dL | | | | TOTAL | | | | | + + + + + + | TOTAL | 6.6 | GM/DL | | | | PROTEIN, | | | | | | PLASMA | | | | | | (LAB) | | | | | + + + + + + | ALBUMIN, | 4.2 | GM/DL | | | | PLASMA | | | | | | (LAB) | | | | | + + + + + + + + | Specimen | + + | | + + + + + + + | Performing | Address | City/State/Zipcode | Phone Number | | Organization | | | | + + + + + | [facility] | [address] | [place] [address] | | | PATHOLOGY | [address] | | | + + + + + THERAPEUTIC DRUG TESTS 2 (05/27/1997 8:00 PM PDT) + + + + + + | Component | Value | Ref Range | Performed | Pathologist | | | | | At | Signature | + + + + + + | AMPHET/MET | NEGATIVE | | | | | SCRN,URINE | | | | | + + + + + + | BENZODIAZEP | NEGATIVE | | | | | INE SCR, UR | | | | | + + + + + + | CANNABINOID | NEGATIVE | | | | | UR | | | | | + + + + + + | COCAINE | NEGATIVE | | | | | MET. SCRN, | | | | | | URINE | | | | | + + + + + + | OPIATE | NEGATIVE | | | | | URINE | | | | | + + + + + + + + | Specimen | + + | | + + + + + + + | Performing | Address | City/State/Zipcode | Phone Number | | Organization | | | | + + + + + | [facility] | [address] | [place] [address] | | | PATHOLOGY | [address] | | | + + + + + URINALYSIS TESTS (05/27/1997 8:00 PM PDT) + + + + + + | Component | Value | Ref Range | Performed | Pathologist | | | | | At | Signature | + + + + + + | COLOR(UR) | YELLOW | | | | + + + + + + | APPEARANCE | CLEAR | | | | + + + + + + | GLUCOSE(UR) | NEG | mg/dL | | | + + + + + + | BILIRUBIN | NEG | mg/dL | | | + + + + + + | KETONES | NEG | mg/dL | | | + + + + + + | SPECIFIC | 1.015 | mg/dL | | | | GRAVITY | | | | | + + + + + + | BLOOD | NEG | mg/dL | | | + + + + + + | PH(UR) | 7. | mg/dL | | | + + + + + + | PROTEIN(LAB | NEG | mg/dL | | | | ) | | | | | + + + + + + | UROBILINOGE | 0.2 | BABS UNITS | | | | N | | | | | + + + + + + | NITRITES | NEG | BABS UNITS | | | + + + + + + | LEUKOCYTE | NEG | BABS UNITS | | | | ESTERASE | | | | | + + + + + + + + | Specimen | + + | | + + + + + + + | Performing | Address | City/State/Zipcode | Phone Number | | Organization | | | | + + + + + | [facility] | [address] | [place] [address] | | | PATHOLOGY | [address] | | | + + + + + documented in this encounter Visit Diagnoses Not on filedocumented in this encounter"
--- OUTSIDE RECORDS SUMMARY | ~2020-02-12 | XMS | Encounter Summary ---
Demographics + + + | Address | [address] | | | [place] [address] | + + + | Home Phone | | + + + | Preferred Language | Unknown | + + + | Marital Status | Single | + + + | Amish Affiliation | NON | + + + | Race | White | + + + | Ethnic Group | Not or | + + + Author + + + | Author | [facility] | + + + | Organization | [facility] | + + + | Address | Unknown | + + + | Phone | Unavailable | + + + Support + + + + + | Name | Relationship | Address | Phone | + + + + + | Lanny Stern | ECON | [address] | | | | | [place] | | | | | [address] | | + + + + + | Evitaduarte Coffey | ECON | Unknown | | + + + + + Care Team Providers + +------+ + | Care Color Adviser Name | Role | Phone | + +------+ + PCP | Unavailable | + +------+ + Encounter Details +--------+ + + + + | Date | Type | Department | Care Team | Description | +--------+ + + + + | 06/03/ | Discharge | Allergy Clinic at | Summary, Discharge | D/C Summary ODDS | | 1996 | Summary-Tra | [facility] [address] | | | | | nscribed | [address] | | | | | | [address] | | | | | | [address] | | | | | | [place], [place] | | | | | | [address] | | | | | | [phone] | | | +--------+ + + + [...] as of this encounter Discharge Summaries Interface, Nurse Informatics Educator In - 10/04/2006 1:01 AM PST [address] [address] [facility] MEDICAL SUMMARY OF HOSPITALIZATION Med Rec No.: [id number] Admission Date: 05/27/97 Name: Willi Toledo Discharge Date: 06/03/97 STAFF PHYSICIAN: Ramos Ojeda M.D. Neuroradiologist, Psychiatry DSM-IV DIAGNOSIS: AXIS I:Schizophrenia, undifferentiated. AXIS [...] mental illness. He has been treated at [facility] since late January 1997. His mental status was essentially unchanged from February 13 to the date of admission. He is referred to [facility] for evaluation and treatment recommendations. HISTORY OF [...] water. There is a strong element of adventism perseveration in the patient's thought content. He [...] injury. Transfer notes accompanying the patient to [facility] mention an abnormal EEG obtained at a hospital in [place], [place]. MEDICATIONS: While at [facility], the patient was tried on a variety [...] Depakote was tapered off in favor of [place] therapy. 9. [place] was begun at 600 mg per day, increased to 900 mg per day on 04/19/97, reduced to 600 mg per day on 05/06/97 and discontinued around 05/16/97 when Depakote at 1,000 mg per day was restarted. 10. Fluoxetine in conjunction with [place] and neuroleptics was begun on 04/16/97. From [...] to return to his parent's house in [place] upon his discharge. He reports being an [...] person. He states that he is in [place] at the "[facility]." He identifies the date incorrectly as [...] HOSPITAL COURSE: The patient was admitted to [facility] for assessment, observation, and treatment. An MRI [...] mg b.i.d. The patient was discharged to [facility] on 06/03/97. Medical workup at [facility] failed to reveal any organic cause of [...] tolerated. Followup: The patient is transferred to [facility] where he is court committed for treatment of mental illness. Doni Soriano M.D. Resident, Psychiatry Ramos Ojeda M.D. Neuroradiologist, Psychiatry NAZARIO/myranda P FAX: 1NW cc: [place] [phone] documented in this encounter Plan of Treatment Not on filedocumented as of this encounter Visit Diagnoses Not on filedocumented in this encounter
--- OUTSIDE RECORDS SUMMARY | ~2020-02-12 | XMS | Encounter Summary ---
Demographics + + + | Address | [address] | | | [place] [address] | + + + | Home Phone | | + + + | Preferred Language | Unknown | + + + | Marital Status | Single | + + + | Alevism Affiliation | NON | + + + | Race | White | + + + | Ethnic Group | Not or | + + + Author + + + | Author | [facility] | + + + | Organization | [facility] | + + + | Address | Unknown | + + + | Phone | Unavailable | + + + Support + + + + + | Name | Relationship | Address | Phone | + + + + + | Lanny Stern | ECON | [address] | | | | | [place] | | | | | [address] | | + + + + + | Evita Coffey | ECON | Unknown | | + + + + + Care Team Providers + +------+ + | Care Footwear Sales Leader Name | Role | Phone | + +------+ + PCP | Unavailable | + +------+ + Encounter Details +--------+ + + + + | Date | Type | Department | Care Team | Description | +--------+ + + + + | 09/27/ | Procedure - | UNKNOWN DEPARTMENT | Other, Faculty | EEG | | 2000 | | [address] [facility] | [phone] | | | | Transcribed | [address] | | | | | | [place], [place] | | | | | | [address] | | | +--------+ + + + [...] throughout this recording reveals a poorly formed ztr-at-uaoggmxm voltage posterior rhythm ranging between 7 and [...] electrographic seizures were encountered. Guy Woodard M.D. [facility] / [id number] / [id number] / [id number] / [id number] C:10/12/2000 documented in this encou nter Plan [...] | Other, Faculty - 09/27/2000 12:00 AM [facility] CLINICAL NEUROPHYSIOLOGY | | | | [...] recording reveals a poorly formed | | yvn-jq-dsmfzvrp voltage posterior rhythm ranging between 7 and [...] | | MCS / HS | | [id number] / [id number] / 60349 / 01650 | | | | | | C:10/12/2000 | | | + + documented in this encounter Visit Diagnoses Not on filedocumented in this encounter"
--- OUTSIDE RECORDS SUMMARY | ~2020-02-12 | XMS | Encounter Summary ---
Demographics + + + | Address | [address] | | | [place] [address] | + + + | Home Phone [...] [place] | | | | | [address] | | + + + + + | Evita Coffey | ECON | Unknown | | + + + + + Care Team Providers + +------+ + | Care Fire Prevention Captain Name | Role | Phone | + +------+ + PCP | Unavailable | + +------+ + Encounter Details +--------+ + + + + | Date | Type | Department | Care Team | Description | +--------+ + + + + | 05/28/ | Results | | Other, Faculty | | | 1996 | Only | | [phone] | | +--------+ + + + + [...] | | + +---------+ + + | [facility] DEPARTMENT OF | | | | | RADIOLOGY | | | | + +---------+ + + documented in this encounter Visit Diagnoses Not on filedocumented in this encounter"
--- OUTSIDE RECORDS SUMMARY | ~2020-02-12 | XMS | Encounter Summary ---
Demographics + + + | Address | [address] | | | [place] [address] | + + + | Home Phone | | + + + | Preferred Language | Unknown | + + + | Marital Status | Single | + + + | Taoist Affiliation | 1013 | + + + | Race | Unknown | + + + | Ethnic Group | Unknown | + + + Author + + + | Author | [facility] | | | and [place] | + + + | Organization | [facility] | | | and [...] Team Providers + +------+ + | Care Deputy United [place] Marshal Name | Role | Phone | + +------+ + PCP | Unavailable | + +------+ + Encounter Details +--------+ + + + + | Date | Type | Department | Care Team | Description | +--------+ + + + + | 08/25/ | Hospital | [facility] | Unknown, | | | 2000 | Encounter | MED CTR GENERIC OP | MD Cliff . | | | | | CONV DEPT [address] | | | | | | [place], | (Fax) | | | | | [place] [address] | | | | | | [phone] | | | +--------+ + + + [...]
--- OUTSIDE RECORDS SUMMARY | ~2020-02-12 | XMS | Encounter Summary ---
Demographics + + + | Address | [address] | | | [place] [address] | + + + | Home Phone | | + + + | Preferred Language | Unknown | + + + | Marital Status | Single | + + + | Rastafari Affiliation | NON | + + + [...] [place] | | | | | [address] | | + + + + + | Evita Coffey | ECON | Unknown | | + + + + + Care Team Providers + +------+ + | Care Heel Washer Stringing Machine Operator Name | Role | Phone | + +------+ + PCP | Unavailable | + +------+ + Encounter Details +--------+ + + + + | Date | Type | Department | Care Team | Description | +--------+ + + + + | 05/28/ | Results | | Other, Faculty | | | 1996 | Only | | [phone] | | +--------+ + + + + [...] | | + +---------+ + + | [facility] DEPARTMENT OF | | | | | RADIOLOGY | | | | + +---------+ + + documented in this encounter Visit Diagnoses Not on filedocumented in this encounter"
--- OUTSIDE RECORDS SUMMARY | ~2020-02-12 | XMS | Encounter Summary ---
Demographics + + + | Address | [address] | | | [place] [address] | + + + | Home Phone | | + + + | Preferred Language | Unknown | + + + | Marital Status | Single | + + + | Congregational Affiliation | NON | + + + | Race | White | + + + | Ethnic Group | Not or | + + + Author + + + | Author | [facility] | + + + | Organization | [facility] | + + + | Address | Unknown | + + + | Phone | Unavailable | + + + Support + + + + + | Name | Relationship | Address | Phone | + + + + + | Lanny Stern | ECON | [address] | | | | | [place] | | | | | [address] | | + + + + + | Evita Coffey | ECON | Unknown | | + + + + + Care Team Providers + +------+ + | Care Acid Conditioning Worker Name | Role | Phone | + [...] [address] | | | | | [place], [place] | [place], [place] | | | | | [address] | [address] | | | | | [phone] | [phone] | | | | | | | [...] | + + + + + | [facility] | [address] [facility] | [place] [address] | | | PATHOLOGY | [address] | | | + + + + + | [facility] | [address] [facility] | [place] [address] | | | PATHOLOGY | [address] | | | + + + + + MAGNESIUM, PLASMA (09/14/2006 6:42 AM PST) + +-------+ + + + | Component | Value | Ref Range | Performed | Pathologist | | | | | At | Signature | + +-------+ + + + | MAGNESIUM,P | 2.3 | 1.8 - 2.5 mg/dL | [facility] | | | LASMA | | | [...] | + + + + + | [facility] DEPARTMENT OF | [address] | [place] [address] | | | PATHOLOGY | [address] | | | + + + + + | [facility] DEPARTMENT OF | [address] | [place] [address] | | | PATHOLOGY | [address] [...] | + + + + + | [facility] DEPARTMENT | [address] [facility] | [place] [address] | | | PATHOLOGY | [address] | | | + + + + + | [facility] | [address] [place] [address] | [place] [address] | | | PATHOLOGY | [address] [...] DEPARTMENT OF | [address] | [place] [address] | | | PATHOLOGY | [address] | | | + + + + + | [facility] DEPARTMENT OF | [address] | [place] [address] | | | PATHOLOGY | [address] [...] DEPARTMENT OF | [address] | [place] [address] | | | PATHOLOGY | [address] | | | + + + + + | [facility] DEPARTMENT OF | [address] | [place] [address] | | | PATHOLOGY | [address] [...] | + + + + + | [facility] DEPARTMENT OF | [address] [facility] | [place] [address] | | | PATHOLOGY | [address] | | | + + + + + | [facility] DEPARTMENT OF | [address] [facility] | [place] [address] | | | PATHOLOGY | [address] [...] DEPARTMENT OF | [address] | [place] [address] | | | PATHOLOGY | [address] | | | + + + + + | [facility] | [address] | [place] [address] | | | PATHOLOGY | [address] | | | + + + + + documented in this encounter Visit Diagnoses Not on filedocumented in this encounter"
--- OUTSIDE RECORDS SUMMARY | ~2020-02-12 | XMS | Encounter Summary ---
Demographics + + + | Address | [address] | | | [place] [address] | + + + | Home Phone [...] + + + | Author | [facility] | + + + | Organization | [facility] | + + + | Address | Unknown | + + + | Phone | Unavailable | + + + Support + + + + + | Name | Relationship | Address | Phone | + + + + + | Lanny Stern | ECON | [address] | | | | | [place] | | | | | [address] | | + + + + + | Evita Coffey | ECON | Unknown | | + + + + + Care Team Providers + +------+ + | Care Size Painter Name | Role | Phone | + [...] [address] | | | | | [place], [place] | [place], [place] | | | | | [address] | [address] | | | | | [phone] | [phone] | | | | | | | [...] | + + + + + | [facility] | [address] [facility] | [place] [address] | | | PATHOLOGY | [address] | | | + + + + + | [facility] | [address] [facility] | [place] [address] | | | PATHOLOGY | [address] | | | + + + + + MAGNESIUM, PLASMA (09/14/2006 6:42 AM PST) + +-------+ + + + | Component | Value | Ref Range | Performed | Pathologist | | | | | At | Signature | + +-------+ + + + | MAGNESIUM,P | 2.3 | 1.8 - 2.5 mg/dL | [facility] | | | LASMA | | [...] + + + + + | [facility] DEPARTMENT OF | [address] | [place] [address] | | | PATHOLOGY | [address] | | | + + + + + | [facility] DEPARTMENT OF | [address] | [place] [address] | | | PATHOLOGY | [address] [...] + + + + + | [facility] DEPARTMENT | [address] [facility] | [place] [address] | | | PATHOLOGY | [address] | | | + + + + + | [facility] | [address] [place] [address] | [place] [address] | | | PATHOLOGY | [address] [...] DEPARTMENT OF | [address] | [place] [address] | | | PATHOLOGY | [address] | | | + + + + + | [facility] DEPARTMENT OF | [address] | [place] [address] | | | PATHOLOGY | [address] [...] DEPARTMENT OF | [address] | [place] [address] | | | PATHOLOGY | [address] | | | + + + + + | [facility] DEPARTMENT OF | [address] | [place] [address] | | | PATHOLOGY | [address] [...] + + + + + | [facility] DEPARTMENT OF | [address] [facility] | [place] [address] | | | PATHOLOGY | [address] | | | + + + + + | [facility] DEPARTMENT OF | [address] [facility] | [place] [address] | | | PATHOLOGY | [address] [...] DEPARTMENT OF | [address] | [place] [address] | | | PATHOLOGY | [address] | | | + + + + + | [facility] | [address] | [place] [address] | | | PATHOLOGY | [address] | | | + + + + + documented in this encounter Visit Diagnoses Not on filedocumented in this encounter"
--- OUTSIDE RECORDS SUMMARY | ~2020-02-12 | XMS | Encounter Summary ---
Demographics + + + | Address | [address] | | | [place] [address] | + + + | Home Phone | | + + + | Preferred Language | Unknown | + + + | Marital Status | Single | + + + | Church Affiliation | NON | + + + [...] [place] | | | | | [address] | | + + + + + | Evitaduarte Coffey | ECON | Unknown | | + + + + + Care Team Providers + +------+ + | Care Steam Crane Operator Name | Role | Phone | + +------+ + PCP | Unavailable | + +------+ + Encounter Details +--------+ + + + + | Date | Type | Department | Care Team | Description | +--------+ + + + + | 09/13/ | Inpatient | Allergy Clinic at | Report, Inpatient | InPt Prog Notes | | 2006 | Progress | [facility] [address] | Consultation | | | | Notes-Trans | [address] | | | | | shelley | [place] | | | | | | [address] | | | | | | [place], [place] | | | | | | [address] | | | | | | [phone] | | | +--------+ + + + [...] as of this encounter Progress Notes Interface, Softlines Supervisor In - 10/30/2006 3:30 AM [facility] [id number] 09/13/2006 09/13/2006 [id number] PRITESH MABRY [id number] Consulting Physician: Christiano Urbina M.D. Consultation Date: 09/13/2006 Referring Physician: Dr. Marquita Wade Reason For Requested Consultation: Mr. Willi Toledo is a 26-year-old gentleman with a history of paranoid schizophrenia who lives in a jail in [place], [place] who was transferred from [facility] for management of pneumomediastinum. He eloped from the jail on September 09, 2006, and was found hypothermic on September 11, 2006. Chest x-ray and CT scan at that time showed pneumomediastinum. He was sent back to the home, however, returned to the emergency room on September 12, 2006, diaphoretic with chest pain. He was transferred to [facility] for further management. On arrival at [facility], Mr. Toledo was found to have no [...] Seroquel. Medication list is incomplete and his jail with be contacted for more complete listing [...] as well as transfer back to the jail and the appropriateness of this. One hour time was spent on Mr. Toledo' case, greater than 50% of the time was spent in consultation and arrangement of care. Judson Baca M.D. Christiano Urbina M.D. PS / BRYANT [id number] / [id number] / [id number] / cc: * Dr. Marquita Wade [facility] Electronically signed by Christiano Urbina 10-29-2006 08:04:59 AM documented in this encounter Plan of Treatment Not on filedocumented as of this encounter Visit Diagnoses Not on filedocumented in this encounter"
--- OUTSIDE RECORDS SUMMARY | ~2020-02-12 | XMS | Clinical Summary ---
Demographics + + + | Address | [address] | | | [place] [address] | + + + | Home Phone [...] [place] | | | | | [address] | | + + + + + | Evita Coffey | ECON | Unknown | | + + + + + Care Team Providers + +------+ + | Care Machine Presser Name | Role | Phone | + +------+ + PCP | Unavailable | + +------+ + Source Comments ELDER is fully live on both EpicCare Ambulatory and EpicCare InPatient.[facility] Allergies + + + + + + [...] | | | | | | | [address] | | + +--------+ +--------+ + +--------+ [...] | | 1979 | | [place] [address] | | | des | | | 0 (Home) | | + +--------+ +--------+ + + | Willi Toledo | Behavi | Self | [birth year] | [address] | | | oral | | 1979 | [address] | [place] [address] | | | Health | | | 0 (Home) | | + +--------+ +--------+ + + | Willi Toledo | Psych | Self | [birth year] | | [address] | | | | | 1980 | [phone] | [place] [address] | | | | | | 0 (Home) | | + +--------+ +--------+ + + Advance Directives + + + + + | Type | Date Recorded | Patient | Explanation | | | | Plastic Boat Patcher | | + + + + + | Advance | | | | | Directives and | | | | | Living Will | | | | + + + + + | Power of | | | | | Activity Aid | | | | + + + [...]
--- OUTSIDE RECORDS SUMMARY | ~2020-02-12 | XMS | Clinical Summary ---
Demographics + + + | Address | [address] | | | [place] [address] | + + + | Home Phone | | + + + | Preferred Language | Unknown | + + + | Marital Status | Single | + + + | Scientology Affiliation | NON | + + + [...] [place] | | | | | [address] | | + + + + + | Evita Coffey | ECON | Unknown | | + + + + + Care Team Providers + +------+ + | Care Signal Worker Name | Role | Phone | + +------+ + PCP | Unavailable | + +------+ + Source Comments ELDER is fully live on both EpicCare Ambulatory and EpicCare InPatient.[facility] Allergies + + + + + [...] | | | | | | | [address] | | + +--------+ +--------+ + +--------+ [...] | | 1979 | | [place] [address] | | | des | | | 0 (Home) | | + +--------+ +--------+ + + | Willi Toledo | Behavi | Self | [birth year] | [address] | | | oral | | 1979 | [address] | [place] [address] | | | Health | | | 0 (Home) | | + +--------+ +--------+ + + | Willi Toledo | Psych | Self | [birth year] | | [address] | | | | | 1980 | [phone] | [place] [address] | | | | | | 0 (Home) | | + +--------+ +--------+ + + Advance Directives + + + + + | Type | Date Recorded | Patient | Explanation | | | | Respiratory Physician | | + + + + + | Advance | | | | | Directives and | | | | | Living Will | | | | + + + + + | Power of | | | | | Engine Service Repairer | | | | + + + [...]
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
--- OUTSIDE RECORDS SUMMARY | ~2020-02-12 | XMS | Encounter Summary ---
Demographics + + + | Address | [address] | | | [place] [address] | + + + | Home Phone [...] Author + + + | Author | [facility] | + + + | Organization | [facility] | + + + | Address | Unknown | + + + | Phone | Unavailable | + + + Support + + + + + | Name | Relationship | Address | Phone | + + + + + | Lanny Stern | ECON | [address] | | | | | [place] | | | | | [address] | | + + + + + | Evita Coffey | ECON | Unknown | | + + + + + Care Team Providers + +------+ + | Care Mailing Section Clerk Name | Role | Phone | + +------+ + PCP | Unavailable | + +------+ + Encounter Details +--------+ + + + + | Date | Type | Department | Care Team | Description | +--------+ + + + + | 09/26/ | Procedure - | UNKNOWN DEPARTMENT | Other, Faculty | EEG | | 2000 | | [address] [facility] | [phone] | | | | Transcribed | [address] | | | | | | [place], [place] | | | | | | [address] | | | +--------+ + + + [...] noted. Nino Capps M.D. DECLAN / BRYANT [id number] / [id number] / [id number] / documented in this encou nter Plan [...] | | DS / HS | | [id number] / [id number] / [id number] / | | | | | | | + + documented in this encounter Visit Diagnoses Not on filedocumented in this encounter"
--- OUTSIDE RECORDS SUMMARY | ~2020-02-12 | XMS | Encounter Summary ---
Demographics + + + | Address | [address] | | | [place] [address] | + + + | Home Phone [...] Author + + + | Author | [facility] | + + + | Organization | [facility] | + + + | Address | Unknown | + + + | Phone | Unavailable | + + + Support + + + + + | Name | Relationship | Address | Phone | + + + + + | Lanny Stern | ECON | [address] | | | | | [place] | | | | | [address] | | + + + + + | Evita Coffey | ECON | Unknown | | + + + + + Care Team Providers + +------+ + | Care Bulb Packer Name | Role | Phone | + [...] [id number] | | | | | | [place], [place] | | | | | | [address] | | | | | | [phone] | | | +--------+ + + + [...] | + + + + + | [facility] | [address] | [place] [address] | | | PATHOLOGY | [address] [...] | + + + + + | [facility] | [address] | [place] [address] | | | PATHOLOGY | [address] [...] | + + + + + | [facility] | [address] | [place] [address] | | | PATHOLOGY | [address] [...] | + + + + + | [facility] | [address] | [place] [address] | | | PATHOLOGY | [address] [...] | + + + + + | [facility] | [address] | [place] [address] | | | PATHOLOGY | [address] [...] | + + + + + | [facility] | [address] | [place] [address] | | | PATHOLOGY | [address] | | | + + + + + documented in this encounter Visit Diagnoses Not on filedocumented in this encounter"
--- OUTSIDE RECORDS SUMMARY | ~2020-02-12 | XMS | Encounter Summary ---
Demographics + + + | Address | [address] | | | [place] [address] | + + + | Home Phone [...] [place] | | | | | [address] | | + + + + + | Evita Coffey | ECON | Unknown | | + + + + + Care Team Providers + +------+ + | Care Yarn Examiner Skeins Name | Role | Phone | + +------+ + PCP | Unavailable | + +------+ + Encounter Details +--------+ + + + + | Date | Type | Department | Care Team | Description | +--------+ + + + + | 09/24/ | Results | | Other, Faculty | | | 2000 | Only | | [phone] | | +--------+ + + + + [...] | + + + + + | [facility] DEPARTMENT OF | [address] | [place] [address] | | | PATHOLOGY | [address] | | | + + + + + | [facility] DEPARTMENT OF | [address] | [place] [address] | | | PATHOLOGY | [address] [...] + | [facility] DEPARTMENT OF | [address] | [place] [address] | | | PATHOLOGY | [address] | | | + + + + + | [facility] DEPARTMENT OF | [address] | [place] [address] | | | PATHOLOGY | [address] [...] | + + + + + | [facility] DEPARTMENT OF | [address] | [place] [address] | | | PATHOLOGY | [address] | | | + + + + + | [facility] | [address] | [place] [address] | | | PATHOLOGY | [address] [...] | Drug of abuse tests performed at [facility] are for | | | [...] | + + + + + | [facility] | [address] | [place] [address] | | | LABORATORY | | | [...] DEPARTMENT OF | [address] | [place] [address] | | | PATHOLOGY | [address] | | | + + + + + | [facility] DEPARTMENT OF | [address] | [place] [address] | | | PATHOLOGY | [address] [...] | + + + + + | [facility] DEPARTMENT OF | [address] | [place] [address] | | | PATHOLOGY | [address] | | | + + + + + | [facility] DEPARTMENT OF | [address] | [place] [address] | | | PATHOLOGY | [address] | | | + + + + + documented in this encounter Visit Diagnoses Not on filedocumented in this encounter
--- OUTSIDE RECORDS SUMMARY | ~2020-02-12 | XMS | Encounter Summary ---
Demographics + + + | Address | [address] | | | [place] [address] | + + + | Home Phone [...] Author + + + | Author | [facility] | + + + | Organization | [facility] | + + + | Address | Unknown | + + + | Phone | Unavailable | + + + Support + + + + + | Name | Relationship | Address | Phone | + + + + + | Lanny Stern | ECON | [address] | | | | | [place] | | | | | [address] | | + + + + + | Evitaduarte Coffey | ECON | Unknown | | + + + + + Care Team Providers + +------+ + | Care Technical Assoc Name | Role | Phone | + +------+ + PCP | Unavailable | + +------+ + Encounter Details +--------+ + + + + | Date | Type | Department | Care Team | Description | +--------+ + + + + | 09/13/ | Inpatient | Allergy Clinic at | Report, Inpatient | InPt Prog Notes | | 2006 | Progress | [facility] [address] | Consultation | | | | Notes-Trans | [address] | | | | | shelley | [place] | | | | | | [address] | | | | | | [place], [place] | | | | | | [address] | | | | | | [phone] | | | +--------+ + + + [...] as of this encounter Progress Notes Interface, Top Loader In - 10/30/2006 3:30 AM [facility] [id number] 09/13/2006 09/13/2006 [id number] PRITESH MABRY [id number] Consulting Physician: Christiano Urbina M.D. Consultation Date: 09/13/2006 Referring Physician: Dr. Marquita Wade Reason For Requested Consultation: Mr. Willi Toledo is a 26-year-old gentleman with a history of paranoid schizophrenia who lives in a detention in [place], [place] who was transferred from [facility] for management of pneumomediastinum. He eloped from the detention on September 09, 2006, and was found hypothermic on September 11, 2006. Chest x-ray and CT scan at that time showed pneumomediastinum. He was sent back to the home, however, returned to the emergency room on September 12, 2006, diaphoretic with chest pain. He was transferred to [facility] for further management. On arrival at [facility], Mr. Toledo was found to [...] Seroquel. Medication list is incomplete and his detention with be contacted for more complete listing [...] as well as transfer back to the detention and the appropriateness of this. One hour time was spent on Mr. Toledo' case, greater than 50% of the time was spent in consultation and arrangement of care. Judson Baca M.D. Christiano Urbina M.D. PS / BRYANT [id number] / [id number] / [id number] / cc: * Dr. Marquita Wade [facility] Electronically signed by Christiano Urbina 10-29-2006 08:04:59 AM documented in this encounter Plan of Treatment Not on filedocumented as of this encounter Visit Diagnoses Not on filedocumented in this encounter"
--- OUTSIDE RECORDS SUMMARY | ~2020-02-12 | XMS | Encounter Summary ---
Demographics + + + | Address | [address] | | | [place] [address] | + + + | Home Phone | | + + + | Preferred Language | Unknown | + + + | Marital Status | Single | + + + | Jewish Affiliation | NON | + + + [...] [place] | | | | | [address] | | + + + + + | Evita Coffey | ECON | Unknown | | + + + + + Care Team Providers + +------+ + | Care Investment Recovery Technician Name | Role | Phone | [...] as of this encounter Discharge Summaries Interface, Social And Human Services Assistant In - 06/22/2006 5:[address] [address] [facility] MEDICAL SUMMARY OF HOSPITALIZATION Med Rec No: [id number] Admission Date: 09/22/2000 Name: Willi Toledo Discharge Date: 09/30/2000 STAFF PHYSICIAN: Ramos Ojeda M.D. DSM4 DIAGNOSES: [place] I: Schizoaffective disorder. [place] II: Deferred. [place] III:History of closed head injury at age [age]. [place] IV:Chronic mental illness, unstable living situation, recent hospitalization. [place] V: GAF 20. PRINCIPAL PROCEDURE: Psychopharmacotherapy. ADDITIONAL [...] disorder. The patient was brought into the [facility] on 07/13/2000 by his mother and uncle [...] mg per day. Following admission to the [facility], the patient was found to be psychotic, [...] depressive symptoms. The patient was transferred to [address] [place] [address] and has been pleasant and cooperative since [...] in 1996. He began treatment at the [facility] in January 1997 and was transferred to [facility] on 05/27/1997 where he remained for one week. Mental status exam at that time included ideas of reference, anglican perseveration, and paranoia. He was diagnosed with undifferentiated schizophrenia and discharged back to [facility] on Olanzapine 10 mg b.i.d. Prior to admission, the patient had been seeing a psychiatrist, Dr. Brandt, on an outpatient basis at [facility]. PAST MEDICAL HISTORY: The patient sustained a [...] average student. 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 and has also done work in [employer]. The patient reports being sexually active since the age of 12. The patient lives with his mother in [place]. He does not have any contact with [...] with recommendations to the primary team at [facility] that he can be increased [...] As toleratd. DIET: Regular. FOLLOW-UP: Return to [facility]. Further follow-up is to be determined by the primary treatment team there. Yessi Tucker M.D. Ramos Ojeda M.D. LA:[id number] cc: JANINE LEYVA FAX [phone] cc: [id number] signed by Interface, Social And Human Services Assistant In at 06/22/2006 5:18 AM PSTInterf keila, Social And Human Services Assistant In - 06/22/2006 5:18 AM PST [address] [address] [facility] MEDICAL SUMMARY OF HOSPITALIZATION Med Rec No: [id number] Admission Date: 09/22/2000 Name: Willi Toledo Discharge Date: 09/30/2000 ATTENDING PHYSICIAN:Ramos Ojeda M.D. DSM - IV [place] I - Schizoaffective disorder. [place] II - Deferred. [place] III - History of closed head injury at age [age]. [place] IV - Chronic mental illness, unstable living situation, recent hospitalization. [place] V - Global assessment of functioning (GAF) [...] disorder. This patient was brought into the [facility] on July 13, 2000 by his [...] mg. per day. Following admission to the [facility] the patient was found to be psychotic, [...] depressive symptoms. The patient was transferred to [facility]. He has been pleasant and cooperative since [...] in 1996. He began treatment at the [facility] in January 1997, and was transferred to [facility] ([facility]) May 27, 1997, where he remained for one week. Mental status exam at that time included ideas of reference, anglican perseveration, and paranoia. He was diagnosed with undifferentiated schizophrenia, and discharged back to [facility] on Olanzapine 10 mg. b.i.d.. Prior to admission the patient had been seeing a psychiatrist, Dr. Brandt on an outpatient basis at [facility]. PAST MEDICAL HISTORY: The patient sustained a [...] average student. 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. He has also done work in [employer]. The patient reports being sexually active since the age of 12. The patient lives with his mother in [place]. He does not have any contact with [...] with recommendations to the primary team at [facility] that he can be increased [...] Regular. ACTIVITY: As tolerated. FOLLOWUP: Return to [facility]. Further followup to be determined by the primary treatment team there. Yessi Tucker M.D. Ramos Ojeda M.D. FAX TO: DR MEHTA [facility] FAX [phone] cc: [id number] signed by Interface, Social And Human Services Assistant In at 06/22/2006 5:18 AM PSTdocume nted in this encounter Plan of Treatment Not on filedocumented as of this encounter Visit Diagnoses Not on filedocumented in this encounter
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
== END ==
LOC: ED 14:30
DX: Z00.8 Encounter for other general examination (principal); F17.200 Nicotine dependence, unspecified, uncomplicated; Z88.0 Allergy status to penicillin; Z88.6 Allergy status to analgesic agent; Z88.8 Allergy status to other drugs, medicaments and biological substances; Z79.899 Other long term (current) drug therapy
CPT/HCPCS: 36415; 80053; 80176; 81001; 84443; 85025; 96372; 99284; C9803; G0480; U0002

== ENCOUNTER 2020-02-20 11:03 | Emergency (ER) | payer MEDICARE, OTHER ==
[~2020-02-20] VITALS: Ht 182.9 cm; Wt 77.1 kg
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
--- OUTSIDE RECORDS SUMMARY | ~2020-02-20 | XMS | Encounter Summary ---
Demographics + + + | Address | [address] | | | [place] [address] | + + + | Home Phone | | + + + | Preferred Language | Unknown | + + + | Marital Status | Single | + + + | Latter Day Affiliation | NON | + + + | Race | White | + + + | Ethnic Group | Not or | + + + Author + + + | Author | [facility] | + + + | Organization | [facility] | + + + | Address | Unknown | + + + | Phone | Unavailable | + + + Support + + + + + | Name | Relationship | Address | Phone | + + + + + | Lanny Stern | ECON | [address] | | | | | [place] | | | | | [address] | | + + + + + | Evitaduarte Coffey | ECON | Unknown | | + + + + + Care Team Providers + +------+ + | Care Electron Beam Photo Mask Maker Name | Role | Phone | + +------+ + PCP | Unavailable | + +------+ + Encounter Details +--------+ + + + + | Date | Type | Department | Care Team | Description | +--------+ + + + + | 09/13/ | Inpatient | Allergy Clinic at | Report, Inpatient | InPt Prog Notes | | 2006 | Progress | [facility] [address] | Consultation | | | | Notes-Trans | [address] | | | | | shelley | [place] | | | | | | [address] | | | | | | [place], [place] | | | | | | [address] | | | | | | [phone] | | | +--------+ + + + [...] as of this encounter Progress Notes Interface, Florist'S Decorator In - 10/30/2006 3:30 AM [facility] [id number] 09/13/2006 09/13/2006 [id number] PRITESH MABRY [id number] Consulting Physician: Christiano Urbina M.D. Consultation Date: 09/13/2006 Referring Physician: Dr. Marquita Wade Reason For Requested Consultation: Mr. Willi Toledo is a 26-year-old gentleman with a history of paranoid schizophrenia who lives in a skilled nursing in [place], [place] who was transferred from [facility] for management of pneumomediastinum. He eloped from the skilled nursing on September 09, 2006, and was found hypothermic on September 11, 2006. Chest x-ray and CT scan at that time showed pneumomediastinum. He was sent back to the home, however, returned to the emergency room on September 12, 2006, diaphoretic with chest pain. He was transferred to [facility] for further management. On arrival at [facility], Mr. Toledo was found to have no [...] Seroquel. Medication list is incomplete and his skilled nursing with be contacted for more complete listing [...] as well as transfer back to the skilled nursing and the appropriateness of this. One hour time was spent on Mr. Toledo' case, greater than 50% of the time was spent in consultation and arrangement of care. Judson Baca M.D. Christiano Urbina M.D. PS / BRYANT [id number] / [id number] / [id number] / cc: * Dr. Marquita Wade [facility] Electronically signed by Christiano Urbina 10-29-2006 08:04:59 AM documented in this encounter Plan of Treatment Not on filedocumented as of this encounter Visit Diagnoses Not on filedocumented in this encounter"
--- OUTSIDE RECORDS SUMMARY | ~2020-02-20 | XMS | Encounter Summary ---
Demographics + + + | Address | [address] | | | [place] [address] | + + + | Home Phone | | + + + | Preferred Language | Unknown | + + + | Marital Status | Single | + + + | Catholic Affiliation | NON | + + + | Race | White | + + + | Ethnic Group | Not or | + + + Author + + + | Author | [facility] | + + + | Organization | [facility] | + + + | Address | Unknown | + + + | Phone | Unavailable | + + + Support + + + + + | Name | Relationship | Address | Phone | + + + + + | Lanny Stern | ECON | [address] | | | | | [place] | | | | | [address] | | + + + + + | Evita Coffey | ECON | Unknown | | + + + + + Care Team Providers + +------+ + | Care Nailer Hand Name | Role | Phone | + +------+ + PCP | Unavailable | + +------+ + Encounter Details +--------+ + + + + | Date | Type | Department | Care Team | Description | +--------+ + + + + | 09/13/ | Hospital | Registration [address] | [address], | | | 2006 | Activity | [address] | [address] | | | | | [address] Mailcode: [id number] | [address] | | | | | [place], [place] | [place], [place] | | | | | [address] | [address] | | | | | [phone] | [phone] | | | | | | | [...] | + +--------+ + + + | RENAL FUNCTION SET | Routin | 09/14/2006 | | Results for this | | (NA,K,CL,CO2,BUN,CRE | e | 6:42 AM | | procedure are in the | | AT,GLUC,CA,PHOS,ALB | | PST | | results section. | | ) | | | | | + +--------+ + + + | CBC ONLY | Routin | 09/14/2006 | | Results for this | | | e | 6:42 AM | | procedure are in the | | | | PST | | results section. | + +--------+ + + + | MAGNESIUM, PLASMA | Routin | 09/14/2006 | | Results for this | | | e | 6:42 AM | | procedure are in the | | | | PST | | results section. | + +--------+ + + + | X-RAY CHEST 2 VIEW | Urgent | 09/13/2006 | | Results for this | | | | 9:11 AM | | procedure are in the | | | | PST | | results section. | + +--------+ + + + | RENAL FUNCTION SET | Routin | 09/13/2006 | | Results for this | | (NA,K,CL,CO2,BUN,CRE | e | 5:55 AM | | procedure are in the | | AT,GLUC,CA,PHOS,ALB | | PST | | results section. | | ) | | | | | + +--------+ + + + | CBC ONLY | Routin | 09/13/2006 | | Results for this | | | e | 5:55 AM | | procedure are in the | | | | PST | | results section. | + +--------+ + + + | RENAL FUNCTION SET | Routin | 09/13/2006 | | Results for this | | (NA,K,CL,CO2,BUN,CRE | e | 1:45 AM | | procedure are in the | | AT,GLUC,CA,PHOS,ALB | | PST | | results section. | | ) | | | | | + +--------+ + + + | CBC ONLY | Routin | 09/13/2006 | | Results for this | | | e | 1:45 AM | | procedure are in the | | | | PST | | results section. | + +--------+ + + + documented in this encounter Results CBC ONLY WITH PLATELET (09/14/2006 6:42 AM PST) + + + + + + | Component | Value | Ref Range | Performed | Pathologist | | | | | At | Signature | + + + + + + | WHITE CELL | 4.2 (L) | 4.4 - 11.0 K/cu | [facility] | | | COUNT | | mm | DEPARTMENT | | | | | | OF | | | | | | PATHOLOGY | | + + + + + + | RED CELL | 3.75 (L) | 4.50 - 5.90 | [facility] | | | COUNT | | M/cu mm | DEPARTMENT | | | | | | OF | | | | | | PATHOLOGY | | + + + + + + | HEMOGLOBIN | 11.6 (L) | 13.5 - 17.5 | [facility] | | | | | g/dL | DEPARTMENT | | | | | | OF | | | | | | PATHOLOGY | | + + + + + + | HEMATOCRIT | 33.2 (L) | 41.0 - 53.0 % | [facility] | | | | | | DEPARTMENT | | | | | | OF | | | | | | PATHOLOGY | | + + + + + + | MCV | 88.6 | 80.0 - 96.0 fL | [facility] | | | | | | DEPARTMENT | | | | | | OF | | | | | | PATHOLOGY | | + + + + + + | MCHC | 34.9 | 33.4 - 35.5 | [facility] | | | | | g/dL | DEPARTMENT | | | | | | OF | | | | | | PATHOLOGY | | + + + + + + | RDW | 12.7 | 11.5 - 15.0 % | [facility] | | | | | | DEPARTMENT | | | | | | OF | | | | | | PATHOLOGY | | + + + + + + | PLATELET | 186 | 150 - 400 K/cu | [facility] [...] | + + + + + | [facility] | [address] | [place] [address] | | | PATHOLOGY | [address] | | | + + + + + | [facility] | [address] | [place] [address] | | | PATHOLOGY | [address] | | | + + + + + MAGNESIUM, PLASMA (09/14/2006 6:42 AM PST) + +-------+ + + + | Component | Value | Ref Range | Performed | Pathologist | | | | | At | Signature | + +-------+ + + + | MAGNESIUM,P | 2.3 | 1.8 - 2.5 mg/dL | [facility] | | | LASMA | | | DEPARTMENT | | | | | | OF | | | | | | PATHOLOGY | | + +-------+ + + + + + | Specimen | + + | | + + + + + + + | Performing | Address | City/State/Zipcode | Phone Number | | Organization | | | | + + + + + | [facility] DEPARTMENT OF | [address] | [place] [address] | | | PATHOLOGY | [address] | | | + + + + + | [facility] DEPARTMENT OF | [address] | [place] [address] | | | PATHOLOGY | [address] | | | + + + + + RENAL FUNCTION SET (09/14/2006 6:42 AM PST) + +---------+ + + + | Component | Value | Ref Range | Performed | Pathologist | | | | | At | Signature | + +---------+ + + + | GLUCOSE, | 85 | 65 - 110 mg/dL | [facility] | | | PLASMA | | | DEPARTMENT | | | (LAB) | | | OF | | | | | | PATHOLOGY | | + +---------+ + + + | BUN, PLASMA | 12 | 6 - 20 mg/dL | [facility] | | | (LAB) | | | DEPARTMENT | | | | | | OF | | | | | | PATHOLOGY | | + +---------+ + + + | CREATININE | 0.8 | 0.7 - 1.3 mg/dL | [facility] | | | PLASMA | | | DEPARTMENT | | | (LAB) | | | OF | | | | | | PATHOLOGY | | + +---------+ + + + | ALBUMIN, | 2.5 (L) | 3.5 - 4.7 g/dL | [facility] | | | PLASMA | | | DEPARTMENT | | | (LAB) | | | OF | | | | | | PATHOLOGY | | + +---------+ + + + | CALCIUM, | 8.0 (L) | 8.5 - 10.5 | [facility] | | | PLASMA | | mg/dL | DEPARTMENT | | | (LAB) | | | OF | | | | | | PATHOLOGY | | + +---------+ + + + | PHOSPHORUS, | 3.0 | 2.4 - 4.7 mg/dL | [facility] | | | PLASMA | | | DEPARTMENT | | | (LAB) | | | OF | | | | | | PATHOLOGY | | + +---------+ + + + | SODIUM, | 142 | 136 - 145 | [facility] | | | PLASMA | | mmol/L | DEPARTMENT | | | (LAB) | | | OF | | | | | | PATHOLOGY | | + +---------+ + + + | POTASSIUM, | 3.5 | 3.5 - 5.1 | [facility] | | | PLASMA | | mmol/L | DEPARTMENT | | | (LAB) | | | OF | | | | | | PATHOLOGY | | + +---------+ + + + | CHLORIDE, | 105 | 98 - 107 mmol/L | [facility] | | | PLASMA | | | DEPARTMENT | | | (LAB) | | | OF | | | | | | PATHOLOGY | | + +---------+ + + + | TOTAL CO2, | 30 (H) | 23 - 29 mmol/L | [facility] | | | PLASMA [...] | + + + + + | [facility] DEPARTMENT | [address] | [place] [address] | | | PATHOLOGY | [address] | | | + + + + + | [facility] | [address] [place] [address] | [place] [address] | | | PATHOLOGY | [address] | | | + + + + + CHEST 2 VIEW (09/13/2006 9:11 AM PST) + + + + + + | Component | Value | Ref Range | Performed | Pathologist | | | | | At | Signature | + + + + + + | CHEST, 2 | Radiologist 1: KENZIE, | | | | | VIEWS [place] | ROBERTH HankinsRadiologist 2: | | | | | STEREO | DORIAN GRACE: PA | | | | | | and lateral chest | | | | | | COMPARISON: None | | | | | | CLINICAL HISTORY: | | | | | | Pneumomediastinum | | | | | | FINDINGS:There is air | | | | | | present within the | | | | | | mediastinum, presumably | | | | | | trackingsuperiorly into | | | | | | the subcutaneous tissues | | | | | | of the | | | | | | superolateralchest wall | | | | | | and base of the left | | | | | | neck. No pneumothorax | | | | | | is seen.There is mild | | | | | | left basilar | | | | | | atelectasis. No | | | | | | pulmonary mass | | | | | | orconsolidation is | | | | | | present. The cardiac | | | | | | silhouette is of normal | | | | | | size. No displaced rib | | | | | | fracture is seen. | | | | | | IMPRESSION: 1. | | | | | | Pneumomediastinum and | | | | | | subcutaneous air in the | | | | | | leftsupraclavicular and | | | | | | left supralateral chest | | | | | | wall region. 2. No | | | | | | pneumothorax. | | | | + + + + + + + + | Specimen | + + | | + + + +---------+ + + | Performing | Address | City/State/Zipcode | Phone Number | | Organization | | | | + +---------+ + + | [facility] DEPARTMENT OF | | | | | RADIOLOGY | | | | + +---------+ + + RENAL FUNCTION SET (09/13/2006 5:55 AM PST) + +---------+ + + + | Component | Value | Ref Range | Performed | Pathologist | | | | | At | Signature | + +---------+ + + + | GLUCOSE, | 94 | 65 - 110 mg/dL | [facility] | | | PLASMA | | | DEPARTMENT | | | (LAB) | | | OF | | | | | | PATHOLOGY | | + +---------+ + + + | BUN, PLASMA | 10 | 6 - 20 mg/dL | [facility] | | | (LAB) | | | DEPARTMENT | | | | | | OF | | | | | | PATHOLOGY | | + +---------+ + + + | CREATININE | 0.8 | 0.7 - 1.3 mg/dL | [facility] | | | PLASMA | | | DEPARTMENT | | | (LAB) | | | OF | | | | | | PATHOLOGY | | + +---------+ + + + | ALBUMIN, | 2.5 (L) | 3.5 - 4.7 g/dL | [facility] | | | PLASMA | | | DEPARTMENT | | | (LAB) | | | OF | | | | | | PATHOLOGY | | + +---------+ + + + | CALCIUM, | 7.8 (L) | 8.5 - 10.5 | [facility] | | | PLASMA | | mg/dL | DEPARTMENT | | | (LAB) | | | OF | | | | | | PATHOLOGY | | + +---------+ + + + | PHOSPHORUS, | 2.2 (L) | 2.4 - 4.7 mg/dL | [facility] | | | PLASMA | | | DEPARTMENT | | | (LAB) | | | OF | | | | | | PATHOLOGY | | + +---------+ + + + | SODIUM, | 144 | 136 - 145 | [facility] | | | PLASMA | | mmol/L | DEPARTMENT | | | (LAB) | | | OF | | | | | | PATHOLOGY | | + +---------+ + + + | POTASSIUM, | 3.1 (L) | 3.5 - 5.1 | [facility] | | | PLASMA | | mmol/L | DEPARTMENT | | | (LAB) | | | OF | | | | | | PATHOLOGY | | + +---------+ + + + | CHLORIDE, | 108 (H) | 98 - 107 mmol/L | [facility] | | | PLASMA | | | DEPARTMENT | | | (LAB) | | | OF | | | | | | PATHOLOGY | | + +---------+ + + + | TOTAL CO2, | 31 (H) | 23 - 29 mmol/L | [facility] | | | PLASMA [...] | + + + + + | [facility] DEPARTMENT OF | [address] | [place] [address] | | | PATHOLOGY | [address] | | | + + + + + | [facility] DEPARTMENT OF | [address] | [place] [address] | | | PATHOLOGY | [address] | | | + + + + + CBC ONLY WITH PLATELET (09/13/2006 5:55 AM PST) + + + + + + | Component | Value | Ref Range | Performed | Pathologist | | | | | At | Signature | + + + + + + | WHITE CELL | 5.9 | 4.4 - 11.0 K/cu | [facility] | | | COUNT | | mm | DEPARTMENT | | | | | | OF | | | | | | PATHOLOGY | | + + + + + + | RED CELL | 3.57 (L) | 4.50 - 5.90 | [facility] | | | COUNT | | M/cu mm | DEPARTMENT | | | | | | OF | | | | | | PATHOLOGY | | + + + + + + | HEMOGLOBIN | 11.0 (L) | 13.5 - 17.5 | [facility] | | | | | g/dL | DEPARTMENT | | | | | | OF | | | | | | PATHOLOGY | | + + + + + + | HEMATOCRIT | 31.9 (L) | 41.0 - 53.0 % | [facility] | | | | | | DEPARTMENT | | | | | | OF | | | | | | PATHOLOGY | | + + + + + + | MCV | 89.2 | 80.0 - 96.0 fL | [facility] | | | | | | DEPARTMENT | | | | | | OF | | | | | | PATHOLOGY | | + + + + + + | MCHC | 34.5 | 33.4 - 35.5 | [facility] | | | | | g/dL | DEPARTMENT | | | | | | OF | | | | | | PATHOLOGY | | + + + + + + | RDW | 12.8 | 11.5 - 15.0 % | [facility] | | | | | | DEPARTMENT | | | | | | OF | | | | | | PATHOLOGY | | + + + + + + | PLATELET | 179 | 150 - 400 K/cu | [facility] [...] DEPARTMENT OF | [address] | [place] [address] | | | PATHOLOGY | [address] | | | + + + + + | [facility] DEPARTMENT OF | [address] | [place] [address] | | | PATHOLOGY | [address] | | | + + + + + RENAL FUNCTION SET (09/13/2006 1:45 AM PST) + +---------+ + + + | Component | Value | Ref Range | Performed | Pathologist | | | | | At | Signature | + +---------+ + + + | GLUCOSE, | 103 | 65 - 110 mg/dL | [facility] | | | PLASMA | | | DEPARTMENT | | | (LAB) | | | OF | | | | | | PATHOLOGY | | + +---------+ + + + | BUN, PLASMA | 11 | 6 - 20 mg/dL | [facility] | | | (LAB) | | | DEPARTMENT | | | | | | OF | | | | | | PATHOLOGY | | + +---------+ + + + | CREATININE | 0.9 | 0.7 - 1.3 mg/dL | [facility] | | | PLASMA | | | DEPARTMENT | | | (LAB) | | | OF | | | | | | PATHOLOGY | | + +---------+ + + + | ALBUMIN, | 3.2 (L) | 3.5 - 4.7 g/dL | [facility] | | | PLASMA | | | DEPARTMENT | | | (LAB) | | | OF | | | | | | PATHOLOGY | | + +---------+ + + + | CALCIUM, | 8.3 (L) | 8.5 - 10.5 | [facility] | | | PLASMA | | mg/dL | DEPARTMENT | | | (LAB) | | | OF | | | | | | PATHOLOGY | | + +---------+ + + + | PHOSPHORUS, | 1.9 (L) | 2.4 - 4.7 mg/dL | [facility] | | | PLASMA | | | DEPARTMENT | | | (LAB) | | | OF | | | | | | PATHOLOGY | | + +---------+ + + + | SODIUM, | 145 | 136 - 145 | [facility] | | | PLASMA | | mmol/L | DEPARTMENT | | | (LAB) | | | OF | | | | | | PATHOLOGY | | + +---------+ + + + | POTASSIUM, | 2.9 (L) | 3.5 - 5.1 | [facility] | | | PLASMA | | mmol/L | DEPARTMENT | | | (LAB) | | | OF | | | | | | PATHOLOGY | | + +---------+ + + + | CHLORIDE, | 104 | 98 - 107 mmol/L | [facility] | | | PLASMA | | | DEPARTMENT | | | (LAB) | | | OF | | | | | | PATHOLOGY | | + +---------+ + + + | TOTAL CO2, | 35 (H) | 23 - 29 mmol/L | [facility] | | | PLASMA [...] | + + + + + | [facility] DEPARTMENT OF | [address] | [place] [address] | | | PATHOLOGY | [address] | | | + + + + + | [facility] DEPARTMENT OF | [address] | [place] [address] | | | PATHOLOGY | [address] | | | + + + + + CBC ONLY WITH PLATELET (09/13/2006 1:45 AM PST) + + + + + + | Component | Value | Ref Range | Performed | Pathologist | | | | | At | Signature | + + + + + + | WHITE CELL | 6.2 | 4.4 - 11.0 K/cu | [facility] | | | COUNT | | mm | DEPARTMENT | | | | | | OF | | | | | | PATHOLOGY | | + + + + + + | RED CELL | 4.17 (L) | 4.50 - 5.90 | [facility] | | | COUNT | | M/cu mm | DEPARTMENT | | | | | | OF | | | | | | PATHOLOGY | | + + + + + + | HEMOGLOBIN | 13.1 (L) | 13.5 - 17.5 | [facility] | | | | | g/dL | DEPARTMENT | | | | | | OF | | | | | | PATHOLOGY | | + + + + + + | HEMATOCRIT | 37.1 (L) | 41.0 - 53.0 % | [facility] | | | | | | DEPARTMENT | | | | | | OF | | | | | | PATHOLOGY | | + + + + + + | MCV | 88.9 | 80.0 - 96.0 fL | [facility] | | | | | | DEPARTMENT | | | | | | OF | | | | | | PATHOLOGY | | + + + + + + | MCHC | 35.3 | 33.4 - 35.5 | [facility] | | | | | g/dL | DEPARTMENT | | | | | | OF | | | | | | PATHOLOGY | | + + + + + + | RDW | 12.7 | 11.5 - 15.0 % | [facility] | | | | | | DEPARTMENT | | | | | | OF | | | | | | PATHOLOGY | | + + + + + + | PLATELET | 204 | 150 - 400 K/cu | [facility] [...] | + + + + + | [facility] DEPARTMENT OF | [address] | [place] [address] | | | PATHOLOGY | [address] | | | + + + + + | [facility] | [address] | [place] [address] | | | PATHOLOGY | [address] | | | + + + + + documented in this encounter Visit Diagnoses Not on filedocumented in this encounter"
--- OUTSIDE RECORDS SUMMARY | ~2020-02-20 | XMS | Encounter Summary ---
Demographics + + + | Address | [address] | | | [place] [address] | + + + | Home Phone | | + + + | Preferred Language | Unknown | + + + | Marital Status | Single | + + + | Spiritism Affiliation | 1013 | + + + | Race | Unknown | + + + | Ethnic Group | Unknown | + + + Author + + + | Author | [facility] | | | and [place] | + + + | Organization | [facility] | | | and [...] Team Providers + +------+ + | Care Mathematics Instructor Name | Role | Phone | + +------+ + PCP | Unavailable | + +------+ + Encounter Details +--------+ + + + + | Date | Type | Department | Care Team | Description | +--------+ + + + + | 08/25/ | Hospital | [facility] | Unknown, | | | 2000 | Encounter | MED CTR GENERIC OP | MD Cliff . | | | | | CONV DEPT [address] | | | | | | [place], | (Fax) | | | | | [place] [address] | | | | | | [phone] | | | +--------+ + + + [...]
--- OUTSIDE RECORDS SUMMARY | ~2020-02-20 | XMS | Encounter Summary ---
Demographics + + + | Address | [address] | | | [place] [address] | + + + | Home Phone | | + + + | Preferred Language | Unknown | + + + | Marital Status | Single | + + + | Adventism Affiliation | NON | + + + [...] [place] | | | | | [address] | | + + + + + | Evita Coffey | ECON | Unknown | | + + + + + Care Team Providers + +------+ + | Care Lehr Stripper Name | Role | Phone | + [...] as of this encounter Discharge Summaries Interface, Practical Nursing Faculty In - 06/22/2006 5:[address] [address] [facility] MEDICAL SUMMARY OF HOSPITALIZATION Med Rec No: [id number] Admission Date: 09/22/2000 Name: Willi Toledo Discharge Date: 09/30/2000 STAFF PHYSICIAN: Ramos Ojeda M.D. DSM4 DIAGNOSES: [place] I: Schizoaffective disorder. [place] II: Deferred. 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 [place] IV:Chronic mental illness, unstable living situation, recent hospitalization. [place] V: GAF 20. PRINCIPAL PROCEDURE: Psychopharmacotherapy. ADDITIONAL [...] disorder. The patient was brought into the [facility] on 07/13/2000 by his mother and uncle [...] mg per day. Following admission to the [facility], the patient was found to be psychotic, [...] depressive symptoms. The patient was transferred to [address] [place] [address] and has been pleasant and cooperative since [...] in 1996. He began treatment at the [facility] in January 1997 and was transferred to [facility] on 05/27/1997 where he remained for one week. Mental status exam at that time included ideas of reference, scientologist perseveration, and paranoia. He was diagnosed with undifferentiated schizophrenia and discharged back to [facility] on Olanzapine 10 mg b.i.d. Prior to admission, the patient had been seeing a psychiatrist, Dr. Brandt, on an outpatient basis at [facility]. PAST MEDICAL HISTORY: The patient sustained [...] average student. 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 The patient reports being sexually active since the age of 12. The patient lives with his mother in [place]. He does not have any contact with [...] with recommendations to the primary team at [facility] that he can be increased by 25 [...] As toleratd. DIET: Regular. FOLLOW-UP: Return to [facility]. Further follow-up is to be determined by the primary treatment team there. Yessi Tucker M.D. Ramos Ojeda M.D. LA:[id number] cc: JANINE LEYVA FAX [phone] cc: [id number] signed by Interface, Practical Nursing Faculty In at 06/22/2006 5:18 AM PSTInterf keila, Practical Nursing Faculty In - 06/22/2006 5:18 AM PST [address] [address] [facility] MEDICAL SUMMARY OF HOSPITALIZATION Med Rec No: [id number] Admission Date: 09/22/2000 Name: Willi Toledo Discharge Date: 09/30/2000 ATTENDING PHYSICIAN:Ramos Ojeda M.D. DSM - IV Chalmette I - Schizoaffective disorder. [place] II - Deferred. [place]met[place] III - History of closed head injury at age [age]. [place]met[place] IV - Chronic mental illness, unstable living situation, recent hospitalization. [place] V - Global assessment of functioning (GAF) [...] disorder. This patient was brought into the [facility] on July 13, 2000 by [...] mg. per day. Following admission to the [facility] the patient was found to be psychotic, [...] depressive symptoms. The patient was transferred to [facility]. He has been pleasant and cooperative [...] in 1996. He began treatment at the [facility] in January 1997, and was transferred to [facility] ([facility]) May 27, 1997, where he remained for one week. Mental status exam at that time included ideas of reference, scientologist perseveration, and paranoia. He was diagnosed with undifferentiated schizophrenia, and discharged back to [facility] on Olanzapine 10 mg. b.i.d.. Prior to admission the patient had been seeing a psychiatrist, Dr. Brandt on an outpatient basis at [facility]. PAST MEDICAL HISTORY: The patient sustained [...] average student. 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 He has also done work in [employer]. The patient reports being sexually active since the age of 12. The patient lives with his mother in [place]. He does not have any contact with [...] with recommendations to the primary team at [facility] that he can be increased by 25 [...] Regular. ACTIVITY: As tolerated. FOLLOWUP: Return to [facility]. Further followup to be determined by the primary treatment team there. Yessi Tucker M.D. Ramos Ojeda M.D. FAX TO: [facility] MEHT[facility] FAX [phone] cc: [id number] signed by Interface, Practical Nursing Faculty In at 06/22/2006 5:18 AM PSTdocume nted in this encounter Plan of Treatment Not on filedocumented as of this encounter Visit Diagnoses Not on filedocumented in this encounter
--- OUTSIDE RECORDS SUMMARY | ~2020-02-20 | XMS | Clinical Summary ---
Demographics + + + | Address | [address] | | | [place] [address] | + + + | Home Phone | | + + + | Preferred Language | Unknown | + + + | Marital Status | Single | + + + | Bahai Affiliation | 1013 | + + + | Race | Unknown | + + + | Ethnic Group | Unknown | + + + Author + + + | Author | [facility] | | | and [place] | + + + | Organization | [facility] | | | and [...] Team Providers + +------+ + | Care Protection Specialist Name | Role | Phone | [...]
--- OUTSIDE RECORDS SUMMARY | ~2020-02-20 | XMS | Encounter Summary ---
Demographics + + + | Address | [address] | | | [place] [address] | + + + | Home Phone | | + + + | Preferred Language | Unknown | + + + | Marital Status | Single | + + + | Gnosticist Affiliation | NON | + + + | Race | White | + + + | Ethnic Group | Not or | + + + Author + + + | Author | [facility] | + + + | Organization | [facility] | + + + | Address | Unknown | + + + | Phone | Unavailable | + + + Support + + + + + | Name | Relationship | Address | Phone | + + + + + | Lanny Stern | ECON | [address] | | | | | [place] | | | | | [address] | | + + + + + | Evita Coffey | ECON | Unknown | | + + + + + Care Team Providers + +------+ + | Care Stem Roller Name | Role | Phone | + +------+ + PCP | Unavailable | + +------+ + Encounter Details +--------+ + + + + | Date | Type | Department | Care Team | Description | +--------+ + + + + | 09/27/ | Procedure - | UNKNOWN DEPARTMENT | Other, Faculty | EEG | | 2000 | | [address] [facility] | [phone] | | | | Transcribed | [address] | | | | | | [place], [place] | | | | | | [address] | | | +--------+ + + + [...] throughout this recording reveals a poorly formed uop-lr-ybdwqsjn voltage posterior rhythm ranging between 7 and [...] electrographic seizures were encountered. Guy Woodard M.D. [facility] / [id number] / [id number] / [id number] / [id number] C:10/12/2000 documented in this encou nter Plan [...] | Other, Faculty - 09/27/2000 12:00 AM [facility] CLINICAL NEUROPHYSIOLOGY | | | | [...] recording reveals a poorly formed | | lwa-po-ptvyowry voltage posterior rhythm ranging between 7 and [...] | | MCS / HS | | [id number] / [id number] / [id number] / [id number] | | | | | | C:10/12/2000 | | | + + documented in this encounter Visit Diagnoses Not on filedocumented in this encounter"
--- OUTSIDE RECORDS SUMMARY | ~2020-02-20 | XMS | Encounter Summary ---
Demographics + + + | Address | [address] | | | [place] [address] | + + + | Home Phone | | + + + | Preferred Language | Unknown | + + + | Marital Status | Single | + + + | Spiritism Affiliation | NON | + + + [...] [place] | | | | | [address] | | + + + + + | Evita Coffey | ECON | Unknown | | + + + + + Care Team Providers + +------+ + | Care Building Drafting Officer Name | Role | Phone | + +------+ + PCP | Unavailable | + +------+ + Encounter Details +--------+ + + + + | Date | Type | Department | Care Team | Description | +--------+ + + + + | 09/24/ | Results | | Other, Faculty | | | 2000 | Only | | [phone] | | +--------+ + + + + [...] | + +--------+ + + + | UA, DIPSTICK ONLY | Routin | 09/29/2000 | | Results for this | | | e | 4:59 PM | | procedure are in the | | | | PST | | results section. | + +--------+ + + + | URINE SCREEN FOR | Routin | 09/29/2000 | | Results for this | | CULTURE | e | 4:59 PM | | procedure are in the | | | | PST | | results section. | + +--------+ + + + | URINE, MICROSCOPIC | Routin | 09/28/2000 | | Results for this | | EXAM | e | 12:55 PM | | procedure are in the | | | | PST | | results section. | + +--------+ + + + | DRUG SCREEN, URINE, | Routin | 09/24/2000 | | Results for this | | PROFILE 4 | e | 3:00 PM | | procedure are in the | | | | PST | | results section. | + +--------+ + + + | UA, DIPSTICK ONLY | Routin | 09/24/2000 | | Results for this | | | e | 3:00 PM | | procedure are in the | | | | PST | | results section. | + +--------+ + + + | URINE, MICROSCOPIC | Routin | 09/24/2000 | | Results for this | | EXAM | e | 3:00 PM | | procedure are in the | | | | PST | | results section. | + +--------+ + + + documented in this encounter Results UABEATA ONLY (09/29/2000 4:59 PM PST) + + + + + + | Component | Value | Ref Range | Performed | Pathologist | | | | | At | Signature | + + + + + + | COLOR(UR) | Yellow | | [facility] | | | | | | DEPARTMENT | | | | | | OF | | | | | | PATHOLOGY | | + + + + + + | APPEARANCE | Mod.Cldy | | [facility] | | | | | | DEPARTMENT | | | | | | OF | | | | | | PATHOLOGY | | + + + + + + | GLUCOSE(UR) | Negative | mg/dL | [facility] | | | | | | DEPARTMENT | | | | | | OF | | | | | | PATHOLOGY | | + + + + + + | BILIRUBIN | Negative | | [facility] | | | | | | DEPARTMENT | | | | | | OF | | | | | | PATHOLOGY | | + + + + + + | KETONES | Trace | mg/dL | [facility] | | | | | | DEPARTMENT | | | | | | OF | | | | | | PATHOLOGY | | + + + + + + | SPECIFIC | 1.025 | 1.005 - 1.030 | [facility] | | | GRAVITY | | | DEPARTMENT | | | | | | OF | | | | | | PATHOLOGY | | + + + + + + | BLOOD | Negative | | [facility] | | | | | | DEPARTMENT | | | | | | OF | | | | | | PATHOLOGY | | + + + + + + | PH(UR) | 7.0 | 5.0 - 8.0 | [facility] | | | | | | DEPARTMENT | | | | | | OF | | | | | | PATHOLOGY | | + + + + + + | PROTEIN(LAB | Negative | mg/dL | [facility] | | | ) | | | DEPARTMENT | | | | | | OF | | | | | | PATHOLOGY | | + + + + + + | UROBILINOGE | 0.2 | 0 - 0.2 BABS | [facility] | | | N | | UNITS | DEPARTMENT | | | | | | OF | | | | | | PATHOLOGY | | + + + + + + | NITRITES | Negative | Negative | [facility] | | | | | | DEPARTMENT | | | | | | OF | | | | | | PATHOLOGY | | + + + + + + | LEUKOCYTE | Negative | Negative | [facility] | | | ESTERASE | | | DEPARTMENT | | | | | | OF | | | | | | PATHOLOGY | | + + + + + + + + | Specimen | + + | | + + + + + | Narrative | Performed At | + + + | Ordered by MIKAYLA PAZ | [facility] | | | DEPARTMENT OF | | | PATHOLOGY | + + + + + + + + | Performing | Address | City/State/Zipcode | Phone Number | | Organization | | | | + + + + + | [facility] DEPARTMENT [facility] | [address] | [place] [address] | | | PATHOLOGY | [address] | | | + + + + + | [facility] DEPARTMENT [facility] | [address] | [place] [address] | | | PATHOLOGY | [address] | | | + + + + + CULT, URINE SCREEN (09/29/2000 4:59 PM PST) + + + + + + | Component | Value | Ref Range | Performed | Pathologist | | | | | At | Signature | + + + + + + | CULT, URINE | Negative, culture not | | [facility] | | | SCREEN | indicated | | DEPARTMENT | | | | | | OF | | | | | | PATHOLOGY | | + + + + + + + + | Specimen | + + | | + + + + + | Narrative | Performed At | + + + | Ordered by MIKAYLA PAZ | [facility] | | | DEPARTMENT OF | | | PATHOLOGY | + + + + + + + + | Performing | Address | City/State/Zipcode | Phone Number | | Organization | | | | + + + + + | [facility] DEPARTMENT OF | [address] | [place] [address] | | | PATHOLOGY | [address] | | | + + + + + | [facility] DEPARTMENT [facility] | [address] | [place] [address] | | | PATHOLOGY | [address] | | | + + + + + URINE, MICROSCOPIC EXAM (09/28/2000 12:55 PM PST) + +-------+ + + + | Component | Value | Ref Range | Performed | Pathologist | | | | | At | Signature | + +-------+ + + + | SQUAMOUS | None | /hpf | [facility] | | | EPITHELIAL | | | DEPARTMENT | | | | | | OF | | | | | | PATHOLOGY | | + +-------+ + + + | NON-SQUAMOU | None | /hpf | [facility] | | | S EPITH | | | DEPARTMENT | | | | | | OF | | | | | | PATHOLOGY | | + +-------+ + + + | RED CELLS | None | 0 - 3 /hpf | [facility] | | | | | | DEPARTMENT | | | | | | OF | | | | | | PATHOLOGY | | + +-------+ + + + | WHITE CELLS | 1-3 | 0 - 5 /hpf | [facility] | | | | | | DEPARTMENT | | | | | | OF | | | | | | PATHOLOGY | | + +-------+ + + + | BACTERIA | None | /hpf | [facility] | | | | | | DEPARTMENT | | | | | | OF | | | | | | PATHOLOGY | | + +-------+ + + + | MUCOUS | None | /lpf | [facility] | | | | | | DEPARTMENT | | | | | | OF | | | | | | PATHOLOGY | | + +-------+ + + + | HYALINE | None | 0 - 1 /lpf | [facility] | | | CASTS | | | DEPARTMENT | | | | | | OF | | | | | | PATHOLOGY | | + +-------+ + + + | GRANULAR | None | /lpf | [facility] | | | CASTS | | | DEPARTMENT | | | | | | OF | | | | | | PATHOLOGY | | + +-------+ + + + | CELLULAR | None | /lpf | [facility] | | | CASTS | | | DEPARTMENT | | | | | | OF | | | | | | PATHOLOGY | | + +-------+ + + + | AMORPHOUS | Many | /hpf | [facility] | | | URATES | | | DEPARTMENT | | | | | | OF | | | | | | PATHOLOGY | | + +-------+ + + + | AMORPHOUS | None | /hpf | [facility] | | | PHOSPHATES | | | DEPARTMENT | | | | | | OF | | | | | | PATHOLOGY | | + +-------+ + + + | CALCIUM | None | /hpf | [facility] | | | OXALATE | | | DEPARTMENT | | | CADE | | | OF | | | | | | PATHOLOGY | | + +-------+ + + + | URIC ACID | None | /hpf | [facility] | | | CRYSTALS | | | DEPARTMENT | | | | | | OF | | | | | | PATHOLOGY | | + +-------+ + + + | TRIPLE P04 | None | /hpf | [facility] | | | CRYSTALS | | | DEPARTMENT | | | | | | OF | | | | | | PATHOLOGY | | + +-------+ + + + | YEAST (LAB) | None | /hpf | [facility] | | | | | | DEPARTMENT | | | | | | OF | | | | | | PATHOLOGY | | + +-------+ + + + | TRICHOMONAS | None [...] | + + + | Ordered by SUMAN OROZCO | [facility] | | | DEPARTMENT OF | | | PATHOLOGY | + + + + + + + + | Performing | Address | City/State/Zipcode | Phone Number | | Organization | | | | + + + + + | [facility] DEPARTMENT [facility] | [address] | [place] [address] | | | PATHOLOGY | [address] | | | + + + + + | [facility] | [address] | [place] [address] | | | PATHOLOGY | [address] | | | + + + + + DRUG SCREEN, URINE, PROFILE 4 (09/24/2000 3:00 PM PST) + + + + + + | Component | Value | Ref Range | Performed | Pathologist | | | | | At | Signature | + + + + + + | ETHANOL | Negative | Negative | | | | (ALCOHOL) | | | | | | SCR, URINE | | | | | + + + + + + | AMPHET/MET | Negative | Negative | | | | SCRN,URINE | | | | | + + + + + + | BENZODIAZEP | Negative | Negative | | | | INE SCR, UR | | | | | + + + + + + | CANNABINOID | Negative | Negative | | | | UR | | | | | + + + + + + | COCAINE | Negative | Negative | | | | MET. SCRN, | | | | | | URINE | | | | | + + + + + + | OPIATE | Negative | Negative | | | | URINE | | | | | + + + + + + + + | Specimen | + + | | + + + + + | Narrative | Performed At | + + + | Ordered by MIKAYLA PAZ Drug Abuse Screen 4, Urine | | | Drug of abuse tests performed at [facility] are for | | | medical diagnosis and treatment only. Specimen | | | collection procedures are not designed to meet | | | required criteria for legal or "benefit" testing. | | + + + + + + + + | Performing | Address | City/State/Zipcode | Phone Number | | Organization | | | | + + + + + | [facility] | [address] | [place] [address] | | | LABORATORY | | | | + + + + + UA, DIPSTICK ONLY (09/24/2000 3:00 PM PST) + + + + + + | Component | Value | Ref Range | Performed | Pathologist | | | | | At | Signature | + + + + + + | COLOR(UR) | Yellow | | [facility] | | | | | | DEPARTMENT | | | | | | OF | | | | | | PATHOLOGY | | + + + + + + | APPEARANCE | Clear | | [facility] | | | | | | DEPARTMENT | | | | | | OF | | | | | | PATHOLOGY | | + + + + + + | GLUCOSE(UR) | Negative | mg/dL | [facility] | | | | | | DEPARTMENT | | | | | | OF | | | | | | PATHOLOGY | | + + + + + + | BILIRUBIN | Negative | | [facility] | | | | | | DEPARTMENT | | | | | | OF | | | | | | PATHOLOGY | | + + + + + + | KETONES | Negative | mg/dL | [facility] | | | | | | DEPARTMENT | | | | | | OF | | | | | | PATHOLOGY | | + + + + + + | SPECIFIC | 1.020 | 1.005 - 1.030 | [facility] | | | GRAVITY | | | DEPARTMENT | | | | | | OF | | | | | | PATHOLOGY | | + + + + + + | BLOOD | Negative | | [facility] | | | | | | DEPARTMENT | | | | | | OF | | | | | | PATHOLOGY | | + + + + + + | PH(UR) | 8.0 | 5.0 - 8.0 | [facility] | | | | | | DEPARTMENT | | | | | | OF | | | | | | PATHOLOGY | | + + + + + + | PROTEIN(LAB | Negative | mg/dL | [facility] | | | ) | | | DEPARTMENT | | | | | | OF | | | | | | PATHOLOGY | | + + + + + + | UROBILINOGE | 0.2 | 0 - 0.2 BABS | [facility] | | | N | | UNITS | DEPARTMENT | | | | | | OF | | | | | | PATHOLOGY | | + + + + + + | NITRITES | Negative | Negative | [facility] | | | | | | DEPARTMENT | | | | | | OF | | | | | | PATHOLOGY | | + + + + + + | LEUKOCYTE | Negative | Negative | [facility] | | | ESTERASE | | | DEPARTMENT | | | | | | OF | | | | | | PATHOLOGY | | + + + + + + + + | Specimen | + + | | + + + + + | Narrative | Performed At | + + + | Ordered by MIKAYLA PAZ | [facility] | | | DEPARTMENT OF | | | PATHOLOGY | + + + + + + + + | Performing | Address | City/State/Zipcode | Phone Number | | Organization | | | | + + + + + | [facility] DEPARTMENT OF | [address] | [place] [address] | | | PATHOLOGY | [address] | | | + + + + + | [facility] DEPARTMENT OF | [address] | [place] [address] | | | PATHOLOGY | [address] | | | + + + + + URINE, MICROSCOPIC EXAM (09/24/2000 3:00 PM PST) + +-------+ + + + | Component | Value | Ref Range | Performed | Pathologist | | | | | At | Signature | + +-------+ + + + | SQUAMOUS | None | /hpf | [facility] | | | EPITHELIAL | | | DEPARTMENT | | | | | | OF | | | | | | PATHOLOGY | | + +-------+ + + + | NON-SQUAMOU | None | /hpf | [facility] | | | S EPITH | | | DEPARTMENT | | | | | | OF | | | | | | PATHOLOGY | | + +-------+ + + + | RED CELLS | None | 0 - 3 /hpf | [facility] | | | | | | DEPARTMENT | | | | | | OF | | | | | | PATHOLOGY | | + +-------+ + + + | WHITE CELLS | None | 0 - 5 /hpf | [facility] | | | | | | DEPARTMENT | | | | | | OF | | | | | | PATHOLOGY | | + +-------+ + + + | BACTERIA | None | /hpf | [facility] | | | | | | DEPARTMENT | | | | | | OF | | | | | | PATHOLOGY | | + +-------+ + + + | MUCOUS | None | /lpf | [facility] | | | | | | DEPARTMENT | | | | | | OF | | | | | | PATHOLOGY | | + +-------+ + + + | HYALINE | None | 0 - 1 /lpf | [facility] | | | CASTS | | | DEPARTMENT | | | | | | OF | | | | | | PATHOLOGY | | + +-------+ + + + | GRANULAR | None | /lpf | [facility] | | | CASTS | | | DEPARTMENT | | | | | | OF | | | | | | PATHOLOGY | | + +-------+ + + + | CELLULAR | None | /lpf | [facility] | | | CASTS | | | DEPARTMENT | | | | | | OF | | | | | | PATHOLOGY | | + +-------+ + + + | AMORPHOUS | None | /hpf | [facility] | | | URATES | | | DEPARTMENT | | | | | | OF | | | | | | PATHOLOGY | | + +-------+ + + + | AMORPHOUS | None | /hpf | [facility] | | | PHOSPHATES | | | DEPARTMENT | | | | | | OF | | | | | | PATHOLOGY | | + +-------+ + + + | CALCIUM | None | /hpf | [facility] | | | OXALATE | | | DEPARTMENT | | | CADE | | | OF | | | | | | PATHOLOGY | | + +-------+ + + + | URIC ACID | None | /hpf | [facility] | | | CRYSTALS | | | DEPARTMENT | | | | | | OF | | | | | | PATHOLOGY | | + +-------+ + + + | TRIPLE P04 | None | /hpf | [facility] | | | CRYSTALS | | | DEPARTMENT | | | | | | OF | | | | | | PATHOLOGY | | + +-------+ + + + | YEAST (LAB) | None | /hpf | [facility] | | | | | | DEPARTMENT | | | | | | OF | | | | | | PATHOLOGY | | + +-------+ + + + | TRICHOMONAS | None [...] | + + + | Ordered by MIKAYLA PAZ | [facility] | | | DEPARTMENT OF | | | PATHOLOGY | + + + + + + + + | Performing | Address | City/State/Zipcode | Phone Number | | Organization | | | | + + + + + | [facility] DEPARTMENT [facility] | [address] | [place] [address] | | | PATHOLOGY | [address] | | | + + + + + | [facility] | [address] | [place] [address] | | | PATHOLOGY | [address] | | | + + + + + documented in this encounter Visit Diagnoses Not on filedocumented in this encounter
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
--- OUTSIDE RECORDS SUMMARY | ~2020-02-20 | XMS | Encounter Summary ---
Demographics + + + | Address | [address] | | | [place] [address] | + + + | Home Phone | | + + + | Preferred Language | Unknown | + + + | Marital Status | Single | + + + | Gnosticism Affiliation | NON | + + + | Race | White | + + + | Ethnic Group | Not or | + + + Author + + + | Author | [facility] | + + + | Organization | [facility] | + + + | Address | Unknown | + + + | Phone | Unavailable | + + + Support + + + + + | Name | Relationship | Address | Phone | + + + + + | Lanny Stern | ECON | [address] | | | | | [place] | | | | | [address] | | + + + + + | Evita Coffey | ECON | Unknown | | + + + + + Care Team Providers + +------+ + | Care Media Supervisor Name | Role | Phone | [...] [address] | | | | | [place], [place] | [place], [place] | | | | | [address] | [address] | | | | | [phone] | [phone] | | | | | | | [...] | + + + + + | [facility] | [address] | [place] [address] | | | PATHOLOGY | [address] | | | + + + + + | [facility] | [address] | [place] [address] | | | PATHOLOGY | [address] | | | + + + + + MAGNESIUM, PLASMA (09/14/2006 6:42 AM PST) + +-------+ + + + | Component | Value | Ref Range | Performed | Pathologist | | | | | At | Signature | + +-------+ + + + | MAGNESIUM,P | 2.3 | 1.8 - 2.5 mg/dL | [facility] | | | LASMA | [...] DEPARTMENT OF | [address] | [place] [address] | | | PATHOLOGY | [address] | | | + + + + + | [facility] DEPARTMENT OF | [address] | [place] [address] | | | PATHOLOGY | [address] [...] + + | [facility] DEPARTMENT | [address] | [place] [address] | | | PATHOLOGY | [address] | | | + + + + + | [facility] | [address] [place] [address] | [place] [address] | | | PATHOLOGY | [address] [...] DEPARTMENT OF | [address] | [place] [address] | | | PATHOLOGY | [address] | | | + + + + + | [facility] DEPARTMENT OF | [address] | [place] [address] | | | PATHOLOGY | [address] [...] DEPARTMENT OF | [address] | [place] [address] | | | PATHOLOGY | [address] | | | + + + + + | [facility] DEPARTMENT OF | [address] | [place] [address] | | | PATHOLOGY | [address] [...] [facility] DEPARTMENT OF | [address] | [place] [address] | | | PATHOLOGY | [address] | | | + + + + + | [facility] DEPARTMENT OF | [address] | [place] [address] | | | PATHOLOGY | [address] [...] DEPARTMENT OF | [address] | [place] [address] | | | PATHOLOGY | [address] | | | + + + + + | [facility] | [address] | [place] [address] | | | PATHOLOGY | [address] | | | + + + + + documented in this encounter Visit Diagnoses Not on filedocumented in this encounter"
--- OUTSIDE RECORDS SUMMARY | ~2020-02-20 | XMS | Encounter Summary ---
Demographics + + + | Address | [address] | | | [place] [address] | + + + | Home Phone | | + + + | Preferred Language | Unknown | + + + | Marital Status | Single | + + + | Muslim Affiliation | NON | + + + [...] [place] | | | | | [address] | | + + + + + | Evita Coffey | ECON | Unknown | | + + + + + Care Team Providers + +------+ + | Care Hot Dip Plater Name | Role | Phone | + +------+ + PCP | Unavailable | + +------+ + Encounter Details +--------+ + + + + | Date | Type | Department | Care Team | Description | +--------+ + + + + | 05/28/ | Results | | Other, Faculty | | | 1996 | Only | | [phone] | | +--------+ + + + + [...] | | + +---------+ + + | [facility] DEPARTMENT OF | | | | | RADIOLOGY | | | | + +---------+ + + documented in this encounter Visit Diagnoses Not on filedocumented in this encounter"
--- OUTSIDE RECORDS SUMMARY | ~2020-02-20 | XMS | Encounter Summary ---
Demographics + + + | Address | [address] | | | [place] [address] | + + + | Home Phone | | + + + | Preferred Language | Unknown | + + + | Marital Status | Single | + + + | Oriental Orthodox Affiliation | NON | + + + [...] [place] | | | | | [address] | | + + + + + | Evitaduarte Coffey | ECON | Unknown | | + + + + + Care Team Providers + +------+ + | Care Urinalysis Technician Name | Role | Phone | + +------+ + PCP | Unavailable | + +------+ + Encounter Details +--------+ + + + + | Date | Type | Department | Care Team | Description | +--------+ + + + + | 06/03/ | Discharge | Allergy Clinic at | Summary, Discharge | D/C Summary ODDS | | 1996 | Summary-Tra | [facility] [address] | | | | | nscribed | [address] | | | | | | [address] | | | | | | [address] | | | | | | [place], [place] | | | | | | [address] | | | | | | [phone] | | | +--------+ + + + [...] as of this encounter Discharge Summaries Interface, Metal Bumper In - 10/04/2006 1:01 AM PST [address] [address] [facility] MEDICAL SUMMARY OF HOSPITALIZATION Med Rec No.: [id number] Admission Date: 05/27/97 Name: Willi Toledo Discharge Date: 06/03/97 STAFF PHYSICIAN: Ramos Ojeda M.D. Lumber Salvager, Psychiatry DSM-IV DIAGNOSIS: AXIS I:Schizophrenia, undifferentiated. AXIS [...] mental illness. He has been treated at [facility] since late January 1997. His mental status was essentially unchanged from February 13 to the date of admission. [facility] is referred to [facility] for evaluation and treatment recommendations. HISTORY OF [...] water. There is a strong element of jainism perseveration in the patient's thought content. He [...] injury. Transfer notes accompanying the patient to [facility] mention an abnormal EEG obtained at a hospital in [place], [place]. MEDICATIONS: While at [facility], the patient was tried on a [...] Depakote was tapered off in favor of Nisland therapy. 9. Nisland was begun at 600 mg per day, increased to 900 mg per day on 04/19/97, reduced to 600 mg per day on 05/06/97 and discontinued around 05/16/97 when Depakote at 1,000 mg per day was restarted. 10. Fluoxetine in conjunction with Nisland and neuroleptics was begun on 04/16/97. From [...] to return to his parent's house in [place] upon his discharge. He reports being an [...] person. He states that he is in [place] at the "[facility]." He identifies the date incorrectly as 05/15/97. [...] HOSPITAL COURSE: The patient was admitted to [facility] for assessment, observation, and treatment. An MRI [...] mg b.i.d. The patient was discharged to [facility] on 06/03/97. Medical workup at [facility] failed to reveal any organic cause of [...] tolerated. Followup: The patient is transferred to [facility] where he is court committed for treatment of mental illness. Doni Soriano M.D. Resident, Psychiatry Ramos Ojeda M.D. Lumber Salvager, Psychiatry NAZARIO/myranda P FAX: 1NW cc: [place] [phone] documented in this encounter Plan of Treatment Not on filedocumented as of this encounter Visit Diagnoses Not on filedocumented in this encounter
--- OUTSIDE RECORDS SUMMARY | ~2020-02-20 | XMS | Encounter Summary ---
Demographics + + + | Address | [address] | | | [place] [address] | + + + | Home Phone | | + + + | Preferred Language | Unknown | + + + | Marital Status | Single | + + + | Religion Affiliation | NON | + + + | Race | White | + + + | Ethnic Group | Not or | + + + Author + + + | Author | [facility] | + + + | Organization | [facility] | + + + | Address | Unknown | + + + | Phone | Unavailable | + + + Support + + + + + | Name | Relationship | Address | Phone | + + + + + | Lanny Stern | ECON | [address] | | | | | [place] | | | | | [address] | | + + + + + | Evita Coffey | ECON | Unknown | | + + + + + Care Team Providers + +------+ + | Care Four Roll Calender Operator Name | Role | Phone | + +------+ + PCP | Unavailable | + +------+ + Encounter Details +--------+ + + + + | Date | Type | Department | Care Team | Description | +--------+ + + + + | 09/26/ | Procedure - | UNKNOWN DEPARTMENT | Other, Faculty | EEG | | 2000 | | [address] [facility] | [phone] | | | | Transcribed | [address] | | | | | | [place], [place] | | | | | | [address] | | | +--------+ + + + [...] noted. Nino Capps M.D. DECLAN / [place] [id number] / [id number] / [id number] / documented in this encou nter Plan [...] | | DS / HS | | [id number] / [id number] / [id number] / | | | | | | | + + documented in this encounter Visit Diagnoses Not on filedocumented in this encounter"
--- OUTSIDE RECORDS SUMMARY | ~2020-02-20 | XMS | Encounter Summary ---
Demographics + + + | Address | [address] | | | [place] [address] | + + + | Home Phone [...] [place] | | | | | [address] | | + + + + + | Evita Coffey | ECON | Unknown | | + + + + + Care Team Providers + +------+ + | Care Instructional Systems Design Consultant Name | Role | Phone | + +------+ + PCP | Unavailable | + +------+ + Encounter Details +--------+ + + + + | Date | Type | Department | Care Team | Description | +--------+ + + + + | 09/27/ | Procedure - | UNKNOWN DEPARTMENT | Other, Faculty | EEG | | 2000 | | [address] [facility] | [phone] | | | | Transcribed | [address] | | | | | | [place], [place] | | | | | | [address] | | | +--------+ + + + [...] throughout this recording reveals a poorly formed vkt-jn-tzxyjwya voltage posterior rhythm ranging between 7 and [...] electrographic seizures were encountered. Guy Woodard M.D. [facility] / [id number] / [id number] / [id number] / [id number] C:10/12/2000 documented in this encou nter Plan [...] | Other, Faculty - 09/27/2000 12:00 AM [facility] CLINICAL NEUROPHYSIOLOGY | | [...] recording reveals a poorly formed | | hoh-jf-qurkfrns voltage posterior rhythm ranging between 7 and [...] | | MCS / HS | | [id number] / [id number] / [id number] / [id number] | | | | | | C:10/12/2000 | | | + + documented in this encounter Visit Diagnoses Not on filedocumented in this encounter"
--- OUTSIDE RECORDS SUMMARY | ~2020-02-20 | XMS | Encounter Summary ---
Demographics + + + | Address | [address] | | | [place] [address] | + + + | Home Phone | | + + + | Preferred Language | Unknown | + + + | Marital Status | Single | + + + | Mosque Affiliation | NON | + + + [...] [place] | | | | | [address] | | + + + + + | Evita Coffey | ECON | Unknown | | + + + + + Care Team Providers + +------+ + | Care Incinerator Plant General Supervisor Name | Role | Phone | + +------+ + PCP | Unavailable | + +------+ + Encounter Details +--------+ + + + + | Date | Type | Department | Care Team | Description | +--------+ + + + + | 05/28/ | Results | | Other, Faculty | | | 1996 | Only | | [phone] | | +--------+ + + + + [...] | | + +---------+ + + | [facility] DEPARTMENT OF | | | | | RADIOLOGY | | | | + +---------+ + + documented in this encounter Visit Diagnoses Not on filedocumented in this encounter"
--- OUTSIDE RECORDS SUMMARY | ~2020-02-20 | XMS | Encounter Summary ---
Demographics + + + | Address | [address] | | | [place] [address] | + + + | Home Phone [...] Author + + + | Author | [facility] | + + + | Organization | [facility] | + + + | Address | Unknown | + + + | Phone | Unavailable | + + + Support + + + + + | Name | Relationship | Address | Phone | + + + + + | Lanny Stern | ECON | [address] | | | | | [place] | | | | | [address] | | + + + + + | Evita Coffey | ECON | Unknown | | + + + + + Care Team Providers + +------+ + | Care Tunnel Heading Inspector Name | Role | Phone | + +------+ + PCP | Unavailable | + +------+ + Encounter Details +--------+ + + + + | Date | Type | Department | Care Team | Description | +--------+ + + + + | 09/26/ | Procedure - | UNKNOWN DEPARTMENT | Other, Faculty | EEG | | 2000 | | [address] [facility] | [phone] | | | | Transcribed | [address] | | | | | | [place], [place] | | | | | | [address] | | | +--------+ + + + [...] noted. Nino Capps M.D. DECLAN / BRYANT [id number] / [id number] / [id number] / documented in this encou nter Plan [...] | | DS / HS | | [id number] / [id number] / [id number] / | | | | | | | + + documented in this encounter Visit Diagnoses Not on filedocumented in this encounter"
--- OUTSIDE RECORDS SUMMARY | ~2020-02-20 | XMS | Encounter Summary ---
Demographics + + + | Address | [address] | | | [place] [address] | + + + | Home Phone [...] [place] | | | | | [address] | | + + + + + | Evita Coffey | ECON | Unknown | | + + + + + Care Team Providers + +------+ + | Care Airline Customer Service Agent Name | Role | Phone | + [...] as of this encounter Discharge Summaries Interface, Senior Ui Software Engineer In - 06/22/2006 5:[address] [address] [facility] MEDICAL SUMMARY OF HOSPITALIZATION Med Rec No: [id number] Admission Date: 09/22/2000 Name: Willi Toledo Discharge Date: 09/30/2000 STAFF PHYSICIAN: Ramos Ojeda M.D. DSM4 DIAGNOSES: Tahoma I: Schizoaffective disorder. Tahoma II: Deferred. Tahoma III:History of closed head injury at age [age]. Tahoma IV:Chronic mental illness, unstable living situation, recent hospitalization. Tahoma V: GAF 20. PRINCIPAL PROCEDURE: Psychopharmacotherapy. ADDITIONAL [...] depressive symptoms. The patient was transferred to [address] [place] [address] and has been pleasant and cooperative since [...] in January 1997 and was transferred to [facility] on 05/27/1997 where he remained for one week. Mental status exam at that time included ideas of reference, hoahaoism perseveration, and paranoia. He was diagnosed with undifferentiated schizophrenia and discharged back to [facility] on Olanzapine 10 mg b.i.d. Prior to admission, the patient had been seeing a psychiatrist, Dr. Brandt, on an outpatient basis at [facility]. PAST MEDICAL HISTORY: The patient sustained [...] average student. 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 The patient reports being sexually active since the age of 12. The patient lives with his mother in [place]. He does not have any contact with [...] with recommendations to the primary team at [facility] that he can be increased by [...] As toleratd. DIET: Regular. FOLLOW-UP: Return to [facility]. Further follow-up is to be determined by the primary treatment team there. Yessi Tucker M.D. Ramos Ojeda M.D. LA:[id number] cc: JANINE LEYVA FAX [phone] cc: [id number] signed by Interface, Senior Ui Software Engineer In at 06/22/2006 5:18 AM PSTInterf keila, Senior Ui Software Engineer In - 06/22/2006 5:18 AM PST [address] [address] [facility] MEDICAL SUMMARY OF HOSPITALIZATION Med Rec No: [id number] Admission Date: 09/22/2000 Name: Willi Toledo Discharge Date: 09/30/2000 ATTENDING PHYSICIAN:Ramos Ojeda M.D. DSM - IV Tahoma I - Schizoaffective disorder. Tahoma II - Deferred. Tahoma III - History of closed head injury at age [age]. Tahoma IV - Chronic mental illness, unstable living situation, recent hospitalization. Tahoma V - Global assessment of functioning (GAF) [...] depressive symptoms. The patient was transferred to [facility]. He has been pleasant and [...] in January 1997, and was transferred to [facility] ([facility]) May 27, 1997, where he remained for one week. Mental status exam at that time included ideas of reference, hoahaoism perseveration, and paranoia. He was diagnosed with undifferentiated schizophrenia, and discharged back to [facility] on Olanzapine 10 mg. b.i.d.. Prior to admission the patient had been seeing a psychiatrist, Dr. Brandt on an outpatient basis at [facility]. PAST MEDICAL HISTORY: The patient sustained [...] average student. 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 He has also done work in [employer]. The patient reports being sexually active since the age of 12. The patient lives with his mother in [place]. He does not have any contact with [...] with recommendations to the primary team at [facility] that he can be increased by [...] Regular. ACTIVITY: As tolerated. FOLLOWUP: Return to [facility]. Further followup to be determined by the primary treatment team there. Yessi Tucker M.D. Ramos Ojeda M.D. FAX TO: DR MEHTA [facility] FAX [phone] cc: [id number] signed by Interface, Senior Ui Software Engineer In at 06/22/2006 5:18 AM PSTdocume nted in this encounter Plan of Treatment Not on filedocumented as of this encounter Visit Diagnoses Not on filedocumented in this encounter
--- OUTSIDE RECORDS SUMMARY | ~2020-02-20 | XMS | Encounter Summary ---
Demographics + + + | Address | [address] | | | [place] [address] | + + + | Home Phone | | + + + | Preferred Language | Unknown | + + + | Marital Status | Single | + + + | Judaism Affiliation | NON | + + + | Race | White | + + + | Ethnic Group | Not or | + + + Author + + + | Author | [facility] | + + + | Organization | [facility] | + + + | Address | Unknown | + + + | Phone | Unavailable | + + + Support + + + + + | Name | Relationship | Address | Phone | + + + + + | Lanny Stern | ECON | [address] | | | | | [place] | | | | | [address] | | + + + + + | Evita Coffey | ECON | Unknown | | + + + + + Care Team Providers + +------+ + | Care Carbon Brushes Assembler Name | Role | Phone | + [...] [id number] | | | | | | [place], [place] | | | | | | [address] | | | | | | [phone] | | | +--------+ + + + [...] | + + + + + | [facility] | [address] | [place] [address] | | | PATHOLOGY | [address] [...] | + + + + + | [facility] | [address] | [place] [address] | | | PATHOLOGY | [address] [...] | + + + + + | [facility] | [address] | [place] [address] | | | PATHOLOGY | [address] [...] | + + + + + | [facility] | [address] | [place] [address] | | | PATHOLOGY | [address] [...] | + + + + + | [facility] | [address] | [place] [address] | | | PATHOLOGY | [address] [...] | + + + + + | [facility] | [address] | [place] [address] | | | PATHOLOGY | [address] | | | + + + + + documented in this encounter Visit Diagnoses Not on filedocumented in this encounter"
--- OUTSIDE RECORDS SUMMARY | ~2020-02-20 | XMS | Encounter Summary ---
Demographics + + + | Address | [address] | | | [place] [address] | + + + | Home Phone | | + + + | Preferred Language | Unknown | + + + | Marital Status | Single | + + + | Yazdanism Affiliation | NON | + + + | Race | White | + + + | Ethnic Group | Not or | + + + Author + + + | Author | [facility] | + + + | Organization | [facility] | + + + | Address | Unknown | + + + | Phone | Unavailable | + + + Support + + + + + | Name | Relationship | Address | Phone | + + + + + | Lanny Stern | ECON | [address] | | | | | [place] | | | | | [address] | | + + + + + | Evitaduarte Coffey | ECON | Unknown | | + + + + + Care Team Providers + +------+ + | Care V Belt Builder Name | Role | Phone | + +------+ + PCP | Unavailable | + +------+ + Encounter Details +--------+ + + + + | Date | Type | Department | Care Team | Description | +--------+ + + + + | 06/03/ | Discharge | Allergy Clinic at | Summary, Discharge | D/C Summary ODDS | | 1996 | Summary-Tra | [facility] [address] | | | | | nscribed | [address] | | | | | | [address] | | | | | | [address] | | | | | | [place], [place] | | | | | | [address] | | | | | | [phone] | | | +--------+ + + + [...] as of this encounter Discharge Summaries Interface, Chief Technology Officer In - 10/04/2006 1:01 AM PST [address] [address] [facility] MEDICAL SUMMARY OF HOSPITALIZATION Med Rec No.: [id number] Admission Date: 05/27/97 Name: Willi Toledo Discharge Date: 06/03/97 STAFF PHYSICIAN: Ramos Ojeda M.D. Supervisor Vendor Quality, Psychiatry DSM-IV DIAGNOSIS: AXIS I:Schizophrenia, undifferentiated. AXIS [...] illness. He has been treated at [facility] since late January 1997. His mental status was essentially unchanged from February 13 to the date of admission. He is referred to [facility] for evaluation and treatment recommendations. HISTORY [...] water. There is a strong element of pentecostalism perseveration in the patient's thought content. He [...] injury. Transfer notes accompanying the patient to [facility] mention an abnormal EEG obtained at a hospital in [place], [place]. MEDICATIONS: While at [facility], [...] Depakote was tapered off in favor of Fidelity therapy. 9. Fidelity was begun at 600 mg per day, increased to 900 mg per day on 04/19/97, reduced to 600 mg per day on 05/06/97 and discontinued around 05/16/97 when Depakote at 1,000 mg per day was restarted. 10. Fluoxetine in conjunction with Fidelity and neuroleptics was begun on 04/16/97. From [...] to return to his parent's house in [place] upon his discharge. He reports being an [...] person. He states that he is in [place] at the "[facility]." He identifies the date incorrectly as [...] HOSPITAL COURSE: The patient was admitted to [facility] for assessment, observation, and treatment. [...] b.i.d. The patient was discharged to [facility] on 06/03/97. Medical workup at [facility] failed to reveal any organic cause [...] Followup: The patient is transferred to [facility] where he is court committed for treatment of mental illness. Doni Soriano M.D. Resident, Psychiatry Ramos Ojeda M.D. Supervisor Vendor Quality, Psychiatry NAZARIO/myranda P FAX: 1NW cc: [place] [phone] documented in this encounter Plan of Treatment Not on filedocumented as of this encounter Visit Diagnoses Not on filedocumented in this encounter
--- OUTSIDE RECORDS SUMMARY | ~2020-02-20 | XMS | Clinical Summary ---
Demographics + + + | Address | [address] | | | [place] [address] | + + + | Home Phone | | + + + | Preferred Language | Unknown | + + + | Marital Status | Single | + + + | Jain Affiliation | NON | + + + | Race | White | + + + | Ethnic Group | Not or | + + + Author + + + | Author | [facility] | + + + | Organization | [facility] | + + + | Address | Unknown | + + + | Phone | Unavailable | + + + Support + + + + + | Name | Relationship | Address | Phone | + + + + + | Lnany Stern | ECON | [address] | | | | | [place] | | | | | [address] | | + + + + + | Evita Coffey | ECON | Unknown | | + + + + + Care Team Providers + +------+ + | Care Nursing Home Director Name | Role | Phone | + +------+ + PCP | Unavailable | + +------+ + Source Comments ELDER is fully live on both EpicCare Ambulatory and EpicCare InPatient.[facility] Allergies + + + + + + | Active Allergy | Reactions | Severity | Noted | Comments | | | | | Date | | + + + + + + | Ibuprofen | | | 11/01/19 | historical | | | | | 10 | | + + + + + + | Penicillins | | | 02/01/20 | | | | | | 01 | | + + + + + + Medications + + + +---------+------+------+-------+ | Medication | Sig | Dispensed | Refills | Star | End | Statu | | | | | | t | Date | s | | | | | | Date | | | + + + +---------+------+------+-------+ | carbamazepine 100 | Take 100 mg by mouth | | 0 | | | Activ | | mg/5 mL Oral | three times daily. | | | | | e | | Suspension | | | | | | | + + + +---------+------+------+-------+ | clonazepam | Take 2 mg by mouth | | 0 | | | Activ | | (KLONOPIN) 2 mg Oral | two times daily. | | | | | e | | Tablet | Crush and give with | | | | | | | | food | | | | | | + + + +---------+------+------+-------+ | lorazepam (ATIVAN) | Take 1-2 mg by mouth | | 0 | | | Activ | | 1 mg Oral Tablet | every four hours as | | | | | e | | | needed. | | | | | | + + + +---------+------+------+-------+ | CLOZAPINE ORAL | Take 200 mg by mouth | | 0 | | | Activ | | | once daily. | | | | | e | + + + +---------+------+------+-------+ | CLOZAPINE ORAL | Take 250 mg by mouth | | 0 | | | Activ | | | once daily at | | | | | e | | | bedtime. | | | | | | + + + +---------+------+------+-------+ Active Problems + + + | Problem | Noted Date | + + + | Psychosis | 10/31/2009 | + + + + + | Overview: ICD10 | + + + + + | Other disorder of impulse control | 10/31/2009 | + + + Social History + +-------+ [...] recent travel history available. | + + Last Filed Vital Signs + + + [...] | | + + + + + Plan of Treatment + + + + + | Health Maintenance | Due Date | Last Done | Comments | + + + + + | Influenza (Flu) | | | | | vaccination (#1) | 9 | | | + + + + + | Pneumococcal | Aged Out | | No longer eligible | | vaccination | | | based on patient's | | | | | age to complete this | | | | | topic | + + + + + Results Not on filefrom Last 3 Months Insurance + +--------+ +--------+ + +--------+ | Payer | Benefi | Subscriber | Effect | Phone | Address | Type | | | t Plan | ID | ramakrishna | | | | | | / | | Dates | | | | | | Group | | | | | | + +--------+ +--------+ + +--------+ | MEDICARE | MEDICA | xxxxxxxxxx | 12/21/19 | [phone] | [address] | Medica | | | RE A & | | 03-Pre | 1 | [address] | re | | | B | | sent | | [place] | | | | | | | | [address] | | + +--------+ +--------+ + +--------+ | [place] | AGENCY | xxxxxxxxx | Effect | | | Agency | | | STATE | | ramakrishna | | | | | | [place] | | for | | | | | | [place] | | all | | | | | | | | dates | | | | + +--------+ +--------+ + +--------+ + +--------+ +--------+ + + | Guarantor Name | Accoun | Relation to | Date | Phone | Billing Address | | | t Type | Patient | of | | | | | | | | | | + +--------+ +--------+ + + | Willi Toledo | Person | Self | [birth year] | [address] | | | al/Fam | | 1979 | | [place] [address] | | | des | | | 0 (Home) | | + +--------+ +--------+ + + | Willi Toledo | Behavi | Self | [birth year] | [address] | | | oral | | 1979 | [address] | [place] [address] | | | Health | | | 0 (Home) | | + +--------+ +--------+ + + | Willi Toledo | Psych | Self | [birth year] | [address] | | | | | 1980 | [phone] | [place] [address] | | | | | | 0 (Home) | | + +--------+ +--------+ + + Advance Directives + + + + + | Type | Date Recorded | Patient | Explanation | | | | Color Drum Worker | | + + + + + | Advance | | | | | Directives and | | | | | Living Will | | | | + + + + + | Power of | | | | | Power Cleaner Operator | | | | + + + + + + + + + + | Code Status | Date | Date | Comments | | | Activated | Inactivated | | + + + + + | Full Code | 10/31/2009 | 11/05/2009 | | | | 10:39 AM | 3:29 PM | | + + + + +
--- OUTSIDE RECORDS SUMMARY | ~2020-02-20 | XMS | Encounter Summary ---
Demographics + + + | Address | [address] | | | [place] [address] | + + + | Home Phone | | + + + | Preferred Language | Unknown | + + + | Marital Status | Single | + + + | Yarsanism Affiliation | NON | + + + [...] [place] | | | | | [address] | | + + + + + | Evitaduarte Coffey | ECON | Unknown | | + + + + + Care Team Providers + +------+ + | Care Client Architect Name | Role | Phone | + +------+ + PCP | Unavailable | + +------+ + Encounter Details +--------+ + + + + | Date | Type | Department | Care Team | Description | +--------+ + + + + | 09/13/ | Inpatient | Allergy Clinic at | Report, Inpatient | InPt Prog Notes | | 2006 | Progress | [facility] [address] | Consultation | | | | Notes-Trans | [address] | | | | | [place]ley | [place] | | | | | | [address] | | | | | | [place], [place] | | | | | | [address] | | | | | | [phone] | | | +--------+ + + + [...] as of this encounter Progress Notes Interface, Fire Chief Deputy In - 10/30/2006 3:30 AM [facility] [id number] 09/13/2006 09/13/2006 [id number] PRITESH MABRY [id number] Consulting Physician: Christiano Urbina M.D. Consultation Date: 09/13/2006 Referring Physician: Dr. Marquita Wade Reason For Requested Consultation: Mr. Willi Toledo is a 26-year-old gentleman with a history of paranoid schizophrenia who lives in a retirement in [place], [place] who was transferred from [facility] for management of pneumomediastinum. He eloped from the retirement on September 09, 2006, and was found hypothermic on September 11, 2006. Chest x-ray and CT scan at that time showed pneumomediastinum. He was sent back to the home, however, returned to the emergency room on September 12, 2006, diaphoretic with chest pain. He was transferred to [facility] for further management. On arrival at [facility], Mr. Toledo was found to have no [...] Seroquel. Medication list is incomplete and his retirement with be contacted for more complete listing [...] as well as transfer back to the retirement and the appropriateness of this. One hour time was spent on Mr. Toledo' case, greater than 50% of the time was spent in consultation and arrangement of care. Judson Baca M.D. Christiano Urbina M.D. PS / RBYANT [id number] / [id number] / [id number] / cc: * Dr. Marquita Wade [facility] Electronically signed by Christiano Urbina 10-29-2006 08:04:59 AM documented in this encounter Plan of Treatment Not on filedocumented as of this encounter Visit Diagnoses Not on filedocumented in this encounter"
--- OUTSIDE RECORDS SUMMARY | ~2020-02-20 | XMS | Clinical Summary ---
Demographics + + + | Address | [address] | | | [place] [address] | + + + | Home Phone | | + + + | Preferred Language | Unknown | + + + | Marital Status | Single | + + + | Buddhist Affiliation | NON | + + + [...] [place] | | | | | [address] | | + + + + + | Evita Coffey | ECON | Unknown | | + + + + + Care Team Providers + +------+ + | Care Transportation Dispatch Manager Name | Role | Phone | + +------+ + PCP | Unavailable | + +------+ + Source Comments ELDER is fully live on both EpicCare Ambulatory and EpicCare InPatient.[facility] Allergies + + + + [...] | | | | | | | [address] | | + +--------+ +--------+ + +--------+ [...] | | 1979 | | [place] [address] | | | des | | | 0 (Home) | | + +--------+ +--------+ + + | Willi Toledo | Behavi | Self | [birth year] | [address] | | | oral | | 1979 | [address] | [place] [address] | | | Health | | | 0 (Home) | | + +--------+ +--------+ + + | Willi Toledo | Psych | Self | [birth year] | | [address] | | | | | 1980 | [phone] | [place] [address] | | | | | | 0 (Home) | | + +--------+ +--------+ + + Advance Directives + + + + + | Type | Date Recorded | Patient | Explanation | | | | Motor Vehicle Salesperson | | + + + + + | Advance | | | | | Directives and | | | | | Living Will | | | | + + + + + | Power of | | | | | Wire Spinner | | | | + + + [...]
--- OUTSIDE RECORDS SUMMARY | ~2020-02-20 | XMS | Encounter Summary ---
Demographics + + + | Address | [address] | | | [place] [address] | + + + | Home Phone | | + + + | Preferred Language | Unknown | + + + | Marital Status | Single | + + + | Samaritan Affiliation | NON | + + + [...] [place] | | | | | [address] | | + + + + + | Evita Coffey | ECON | Unknown | | + + + + + Care Team Providers + +------+ + | Care Check Embosser Name | Role | Phone | + +------+ + PCP | Unavailable | + +------+ + Encounter Details +--------+ + + + + | Date | Type | Department | Care Team | Description | +--------+ + + + + | 09/24/ | Results | | Other, Faculty | | | 2000 | Only | | [phone] | | +--------+ + + + + [...] + + + + + | [facility] DEPARTMENT OF | [address] [facility] | [place] [address] | | | PATHOLOGY | [address] | | | + + + + + | [facility] DEPARTMENT OF | [address] | [place] [address] | | | PATHOLOGY | [address] [...] + | [facility] DEPARTMENT OF | [address] [facility] | [place] [address] | | | PATHOLOGY | [address] | | | + + + + + | [facility] DEPARTMENT OF | [address] | [place] [address] | | | PATHOLOGY | [address] [...] + + + + + | [facility] DEPARTMENT OF | [address] | [place] [address] | | | PATHOLOGY | [address] | | | + + + + + | [facility] | [address] | [place] [address] | | | PATHOLOGY | [address] [...] | Drug of abuse tests performed at [facility] are for | | | medical diagnosis and treatment only. Specimen | | | collection procedures are not designed to meet | | | required criteria for legal or "benefit" testing. | | + + + + + + + + | Performing | Address | City/State/Zipcode | Phone Number | | Organization | | | | + + + + + | [facility] | [address] | [place] [address] | | | LABORATORY | | | [...] DEPARTMENT OF | [address] | [place] [address] | | | PATHOLOGY | [address] | | | + + + + + | [facility] DEPARTMENT OF | [address] | [place] [address] | | | PATHOLOGY | [address] [...] + + + + + | [facility] DEPARTMENT OF | [address] | [place] [address] | | | PATHOLOGY | [address] | | | + + + + + | [facility] DEPARTMENT OF | [address] | [place] [address] | | | PATHOLOGY | [address] | | | + + + + + documented in this encounter Visit Diagnoses Not on filedocumented in this encounter
--- OUTSIDE RECORDS SUMMARY | ~2020-02-20 | XMS | Encounter Summary ---
Demographics + + + | Address | [address] | | | [place] [address] | + + + | Home Phone | | + + + | Preferred Language | Unknown | + + + | Marital Status | Single | + + + | Jew Affiliation | NON | + + + | Race | White | + + + | Ethnic Group | Not or | + + + Author + + + | Author | [facility] | + + + | Organization | [facility] | + + + | Address | Unknown | + + + | Phone | Unavailable | + + + Support + + + + + | Name | Relationship | Address | Phone | + + + + + | Lanny Stern | ECON | [address] | | | | | [place] | | | | | [address] | | + + + + + | Evita Coffey | ECON | Unknown | | + + + + + Care Team Providers + +------+ + | Care Center Rep Name | Role | Phone | + [...] [id number] | | | | | | [place], [place] | | | | | | [address] | | | | | | [phone] | | | +--------+ + + + [...] [facility] | [address] | [place] [address] | | | PATHOLOGY | [address] [...] [facility] | [address] | [place] [address] | | | PATHOLOGY | [address] [...] [facility] | [address] | [place] [address] | | | PATHOLOGY | [address] [...] [facility] | [address] | [place] [address] | | | PATHOLOGY | [address] [...] [facility] | [address] | [place] [address] | | | PATHOLOGY | [address] [...] | [facility] | [address] | [place] [address] | | | PATHOLOGY | [address] | | | + + + + + documented in this encounter Visit Diagnoses Not on filedocumented in this encounter"
[~2020-02-20 11:03] MED LIST changes: +ZYPREXA10 MG PO
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
== END 2020-02-20 13:35 | disposition home or self-care (01) ==
LOC: ED 11:03
DX: Z00.8 Encounter for other general examination (principal); F17.200 Nicotine dependence, unspecified, uncomplicated; Z88.0 Allergy status to penicillin; Z88.6 Allergy status to analgesic agent; Z88.8 Allergy status to other drugs, medicaments and biological substances; Z79.899 Other long term (current) drug therapy
CPT/HCPCS: 80053; 80176; 81001; 84443; 85025; 99283; G0480

== ENCOUNTER 2020-03-07 09:57 | Emergency (ER) | payer MEDICARE, OTHER ==
[~2020-03-07] VITALS: Ht 182.9 cm; Wt 77.1 kg
--- OUTSIDE RECORDS SUMMARY | ~2020-03-07 | XMS | Encounter Summary ---
Demographics + + + | Address | [address] | | | [place] [address] | + + + | Home Phone | | + + + | Preferred Language | Unknown | + + + | Marital Status | Single | + + + | Taoism Affiliation | 1013 | + + + | Race | Unknown | + + + | Ethnic Group | Unknown | + + + Author + + + | Author | [facility] | | | and [place] | + + + | Organization | [facility] | | | and [place] | + + + | Address | Unknown | + + + | Phone | Unavailable | + + + Support + + +---------+ + | Name | Relationship | Address | Phone | + + +---------+ + | Psychiatric Cnt | ECON | Unknown | | | [place] | | | | + + +---------+ + Care Team Providers + +------+ + | Care Rubber Tester Name | Role | Phone | + +------+ + PCP | Unavailable | + +------+ + Encounter Details +--------+ + + + + | Date | Type | Department | Care Team | Description | +--------+ + + + + | 08/25/ | Hospital | [facility] | Unknown, | | | 2000 | Encounter | MED CTR GENERIC OP | MD Cliff . | | | | | CONV DEPT [address] | | | | | | [place], | (Fax) | | | | | [place] [address] | | | | | | [phone] | | | +--------+ + + + + Social History + +-------+ +--------+------+ | Tobacco Use | Types | Packs/Day | Years | Date | | | | | Used | | + +-------+ +--------+------+ | Never Assessed | | | | | + +-------+ +--------+------+ + + + | Sex Assigned at | Date Recorded | | | | + + + | Not on file | | + + + documented as of this encounter Plan of Treatment Not on filedocumented as of this encounter Visit Diagnoses Not on filedocumented in this encounter"
--- OUTSIDE RECORDS SUMMARY | ~2020-03-07 | XMS | Encounter Summary ---
Demographics + + + | Address | [address] | | | [place] [address] | + + + | Home Phone | | + + + | Preferred Language | Unknown | + + + | Marital Status | Single | + + + | Restorationism Affiliation | NON | + + + | Race | White | + + + | Ethnic Group | Not or | + + + Author + + + | Author | [facility] | + + + | Organization | [facility] | + + + | Address | Unknown | + + + | Phone | Unavailable | + + + Support + + + + + | Name | Relationship | Address | Phone | + + + + + | Lanny Stern | ECON | [address] | | | | | [place] | | | | | [address] | | + + + + + | Evita Coffey | ECON | Unknown | | + + + + + Care Team Providers + +------+ + | Care Etl Application Developer Name | Role | Phone | + +------+ + PCP | Unavailable | + +------+ + Encounter Details +--------+ + + + + | Date | Type | Department | Care Team | Description | +--------+ + + + + | 09/27/ | Procedure - | UNKNOWN DEPARTMENT | Other, Faculty | EEG | | 2000 | | [address] [facility] | [phone] | | | | Transcribed | [address] | | | | | | [place], [place] | | | | | | [address] | | | +--------+ + + + [...] + + documented as of this encounter Progress Notes Other, Faculty - 09/27/2000 12:00 AM PSTAssociated Order(s): EEG ROUTINE CLINICAL NEUROPHYS IOLOGY 24-HOUR EEG RECORDING DATE OF RECORDING: September 27, 2000 CLINICAL NEUROPHYSIOLOGY NO: [id number] ORDERING PHYSICIAN: Srini Walls M.D. DETAIL: A 24-hour continuous EEG monitoring was performed on this 20-year-old man suspected of epileptic seizures. Medications include gabapentin, valproate, trazodone, Zoloft, Clozaril, and Ativan. Background activity throughout this recording reveals a poorly formed jjx-hc-brehuqba voltage posterior rhythm ranging between 7 and 9 cycles per second blocking with eye opening. Scattered intermixed theta activity is seen in the waking background in the bitemporal regions. During sleep portions of the recording, there is a generalized slowing of the background with development of vertex sharp waves. Stage 2 sleep reveals symmetrically distributed K-complexes and sleep spindles. There are occasional artifacts particularly seen in the left frontal region, but these are clearly nonphysiologic. Other than these artifacts, no definite epileptiform activity is encountered nor other definite asymmetries in the background activity. No clinical events were charted. CLINICAL INTERPRETATION: This 24-hour continuous EEG monitoring is mildly abnormal due to an intermittent generalized slowing of the background. However, there were no epileptiform discharges or lateralized abnormalities and no electrographic seizures were encountered. Guy Woodard M.D. [facility] / [id number] / [id number] / [id number] / [id number] C:10/12/2000 documented in this encou nter Plan of Treatment Not on filedocumented as of this encounter Procedures + +--------+ + + + | Procedure Name | Priori | Date/Time | Associated Diagnosis | Comments | | | ty | | | | + +--------+ + + + | EEG ROUTINE | | 09/27/2000 | | Results for this | | | | 12:00 AM | | procedure are in the | | | | PST | | results section. | + +--------+ + + + documented in this encounter Results EEG ROUTINE (09/27/2000 12:00 AM PST) + + | Procedure Note | + + | Other, Faculty - 09/27/2000 12:00 AM [facility] CLINICAL NEUROPHYSIOLOGY | | | | 24-HOUR EEG RECORDING | | | | DATE OF RECORDING: September 27, 2000 | | | | CLINICAL NEUROPHYSIOLOGY NO: [id number] | | | | ORDERING PHYSICIAN: Srini Walls M.D. | | | | | | DETAIL: A 24-hour continuous EEG monitoring was performed on this | | 20-year-old man suspected of epileptic seizures. Medications include | | gabapentin, valproate, trazodone, Zoloft, Clozaril, and Ativan. | | | | Background activity throughout this recording reveals a poorly formed | | jnu-rl-rjdauhsi voltage posterior rhythm ranging between 7 and 9 cycles per | | second blocking with eye opening. Scattered intermixed theta activity is | | seen in the waking background in the bitemporal regions. During sleep | | portions of the recording, there is a generalized slowing of the background | | with development of vertex sharp waves. Stage 2 sleep reveals symmetrically | | distributed K-complexes and sleep spindles. There are occasional artifacts | | particularly seen in the left frontal region, but these are clearly | | nonphysiologic. Other than these artifacts, no definite epileptiform | | activity is encountered nor other definite asymmetries in the background | | activity. No clinical events were charted. | | | | CLINICAL INTERPRETATION: This 24-hour continuous EEG monitoring is mildly | | abnormal due to an intermittent generalized slowing of the background. | | However, there were no epileptiform discharges or lateralized abnormalities | | and no electrographic seizures were encountered. | | | | | | | | | | Guy Woodard M.D. | | | | MCS / HS | | [id number] / [id number] / [id number] / [id number] | | | | | | C:10/12/2000 | | | + + documented in this encounter Visit Diagnoses Not on filedocumented in this encounter"
--- OUTSIDE RECORDS SUMMARY | ~2020-03-07 | XMS | Encounter Summary ---
Demographics + + + | Address | [address] | | | [place] [address] | + + + | Home Phone | | + + + | Preferred Language | Unknown | + + + | Marital Status | Single | + + + | Caodaism Affiliation | NON | + + + | Race | White | + + + | Ethnic Group | Not or | + + + Author + + + | Author | [facility] | + + + | Organization | [facility] | + + + | Address | Unknown | + + + | Phone | Unavailable | + + + Support + + + + + | Name | Relationship | Address | Phone | + + + + + | Lanny Stern | ECON | [address] | | | | | [place] | | | | | [address] | | + + + + + | Evitaduarte Coffey | ECON | Unknown | | + + + + + Care Team Providers + +------+ + | Care Cargo Trimmer Name | Role | Phone | + +------+ + PCP | Unavailable | + +------+ + Encounter Details +--------+ + + + + | Date | Type | Department | Care Team | Description | +--------+ + + + + | 09/13/ | Inpatient | Allergy Clinic at | Report, Inpatient | InPt Prog Notes | | 2006 | Progress | [facility] [address] | Consultation | | | | Notes-Trans | [address] | | | | | shelley | [address] | | | | | | [address] | | | | | | [place], [place] | | | | | | [address] | | | | | | [phone] | | | +--------+ + + + [...] documented as of this encounter Progress Notes Interface, Information Systems Manager In - 10/30/2006 3:30 AM [facility] [id number] 09/13/2006 09/13/2006 [id number] PRITESH MABRY [id number] Consulting Physician: Christiano Urbina M.D. Consultation Date: 09/13/2006 Referring Physician: Dr. Marquita Wade Reason For Requested Consultation: Mr. Willi Toledo is a 26-year-old gentleman with a history of paranoid schizophrenia who lives in a fpc in [place], [place] who was transferred from [facility] for management of pneumomediastinum. He eloped from the fpc on September 09, 2006, and was found hypothermic on September 11, 2006. Chest x-ray and CT scan at that time showed pneumomediastinum. He was sent back to the home, however, returned to the emergency room on September 12, 2006, diaphoretic with chest pain. He was transferred to [facility] for further management. On arrival at [facility], Mr. Toledo was found to have no complaints of chest pain, no dysphagia. He does have some shortness of breath. He is a very poor historian with a flat affect likely secondary to his schizophrenia. He does not recall the events over the last several days. He does not recall any trauma, any nausea, vomiting, or any cough. Past Medical History: Paranoid schizophrenia. Social History: He denies tobacco, alcohol, or drugs. Family History: Unable to obtain. Medications: Clonazepam and Seroquel. Medication list is incomplete and his fpc with be contacted for more complete listing of medications. Allergies: PENICILLIN. Physical Examination: Vital Signs: He is afebrile. Her heart rate is 80, breathing 18, blood pressure 118/70, and saturating 90% on room air. General: He has a very flat affect. Please see the handwritten note of Lise Wallace for details of physical exam. In brief, his abdomen is nontender and nondistended. He does have some crepitants in his neck. He has no tenderness in his neck. Laboratory Data: CT scan of this chest was reviewed with Dr. Milton Schumacher. It shows air in his mediastinum tracking along the trachea. Air tracking out the left main stem bronchus consistent with spontaneous pneumomediastinum. No evidence of fluid in the chest. No evidence of abscess cavity or pneumothorax. White count of 5.9, creatinine of 0.8, BUN of 10, and bicarbonate of 31. Impression: Mr. Toledo appears to have a spontaneous pneumomediastinum. However, because of his inability to write a good history, we obtained a swallow study to rule out esophageal perforation. If this swallow in negative, we will advance his diet and observe him. Psychiatry has been contacted for evaluation regarding management of his medications as well as transfer back to the fpc and the appropriateness of this. One hour time was spent on Mr. Toledo' case, greater than 50% of the time was spent in consultation and arrangement of care. Judson Baca M.D. Christiano Urbina M.D. PS / BRYANT [id number] / [id number] / [id number] / cc: * Dr. Marquita Wade [facility] Electronically signed by Christiano Urbina 10-29-2006 08:04:59 AM documented in this encounter Plan of Treatment Not on filedocumented as of this encounter Visit Diagnoses Not on filedocumented in this encounter"
--- OUTSIDE RECORDS SUMMARY | ~2020-03-07 | XMS | Encounter Summary ---
Demographics + + + | Address | [address] | | | [place] [address] | + + + | Home Phone | | + + + | Preferred Language | Unknown | + + + | Marital Status | Single | + + + | Jehovah'S Witness Affiliation | NON | + + + [...] [place] | | | | | [address] | | + + + + + | Evita Coffey | ECON | Unknown | | + + + + + Care Team Providers + +------+ + | Care Building Guard Deputy Sheriff Name | Role | Phone | + [...] as of this encounter Discharge Summaries Interface, House Rn In - 06/22/2006 5:[address] [address] [facility] MEDICAL SUMMARY OF HOSPITALIZATION Med Rec No: [id number] Admission Date: 09/22/2000 Name: Willi Toledo Discharge Date: 09/30/2000 STAFF PHYSICIAN: Ramos Ojeda M.D. DSM4 DIAGNOSES: Lagunitas I: Schizoaffective disorder. Lagunitas II: Deferred. [place] III:History of closed head injury at age [age]. [place]as IV:Chronic mental illness, unstable living situation, recent hospitalization. [place]unit[place] V: GAF 20. PRINCIPAL PROCEDURE: Psychopharmacotherapy. ADDITIONAL [...] disorder. The patient was brought into the [facility] on 07/13/2000 by his mother and uncle [...] mg per day. Following admission to the [facility], the patient was found to be psychotic, [...] depressive symptoms. The patient was transferred to [address] [place] [address] and has been pleasant and cooperative since [...] in 1996. He began treatment at the [facility] in January 1997 and was transferred to [facility] on 05/27/1997 where he remained for one week. Mental status exam at that time included ideas of reference, amish perseveration, and paranoia. He was diagnosed with undifferentiated schizophrenia and discharged back to [facility] on Olanzapine 10 mg b.i.d. Prior to admission, the patient had been seeing a psychiatrist, Dr. Brandt, on an outpatient basis at [facility]. PAST MEDICAL HISTORY: The patient sustained a [...] average student. 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 The patient reports being sexually active since the age of 12. The patient lives with his mother in [place]. He does not have any contact with [...] with recommendations to the primary team at [facility] that he can be increased by 25 [...] As toleratd. DIET: Regular. FOLLOW-UP: Return to [facility]. Further follow-up is to be determined by the primary treatment team there. Yessi Tucker M.D. Ramos Ojeda M.D. LA:x11 cc: JANINE LEYVA FAX [phone] cc: [id number] signed by Interface, House Rn In at 06/22/2006 5:18 AM PSTInterf keila, House Rn In - 06/22/2006 5:18 AM PST [address] [address] [facility] MEDICAL SUMMARY OF HOSPITALIZATION Med Rec No: [id number] Admission Date: 09/22/2000 Name: Willi Toledo Discharge Date: 09/30/2000 ATTENDING PHYSICIAN:Ramos Ojeda M.D. DSM - IV Lagunitas I - Schizoaffective disorder. Lagunitas II - Deferred. Lagunitas III - History of closed head injury at age [age]. Lagunitas IV - Chronic mental illness, unstable living situation, recent hospitalization. Lagunitas V - Global assessment of functioning (GAF) [...] disorder. This patient was brought into the [facility] on July 13, 2000 by his mother [...] mg. per day. Following admission to the [facility] the patient was found to be psychotic, [...] depressive symptoms. The patient was transferred to [facility]. He has been pleasant and cooperative since [...] in 1996. He began treatment at the [facility] in January 1997, and was transferred to [facility] ([facility]) May 27, 1997, where he remained for one week. Mental status exam at that time included ideas of reference, amish perseveration, and paranoia. He was diagnosed with undifferentiated schizophrenia, and discharged back to [facility] on Olanzapine 10 mg. b.i.d.. Prior to admission the patient had been seeing a psychiatrist, Dr. Brandt on an outpatient basis at [facility]. PAST MEDICAL HISTORY: The patient sustained a [...] average student. 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 He has also done work in [employer]. The patient reports being sexually active since the age of 12. The patient lives with his mother in [place]. He does not have any contact with [...] with recommendations to the primary team at [facility] that he can be increased by 25 [...] Regular. ACTIVITY: As tolerated. FOLLOWUP: Return to [facility]. Further followup to be determined by the primary treatment team there. Yessi Tucker M.D. Ramos Ojeda M.D. FAX TO: DR MEHTA [facility] FAX [phone] cc: [id number] signed by Interface, House Rn In at 06/22/2006 5:18 AM PSTdocume nted in this encounter Plan of Treatment Not on filedocumented as of this encounter Visit Diagnoses Not on filedocumented in this encounter
--- OUTSIDE RECORDS SUMMARY | ~2020-03-07 | XMS | Encounter Summary ---
Demographics + + + | Address | [address] | | | [place] [address] | + + + | Home Phone | | + + + | Preferred Language | Unknown | + + + | Marital Status | Single | + + + | Episcopalian Affiliation | NON | + + + [...] [place] | | | | | [address] | | + + + + + | Evita Coffey | ECON | Unknown | | + + + + + Care Team Providers + +------+ + | Care Cartographic Designer Name | Role | Phone | + +------+ + PCP | Unavailable | + +------+ + Encounter Details +--------+ + + + + | Date | Type | Department | Care Team | Description | +--------+ + + + + | 05/28/ | Results | | Other, Faculty | | | 1996 | Only | | [phone] | | +--------+ + + + + [...] | + +--------+ + + + | MRI BRAIN, 3 SEQ, | Priori | 05/28/1997 | | Results for this | | | ty | 8:30 PM | | procedure are in the | | | | PDT | | results section. | + +--------+ + + + documented in this encounter Results MRI BRAIN, 3 SEQ, (05/28/1997 8:30 PM PDT) + + + + + + | Component | Value | Ref Range | Performed | Pathologist | | | | | At | Signature | + + + + + + | MRI BRAIN, | Radiologist 1: | | | | | 3 SEQ, [facility] | MONE INIGUEZ, | | | | | | M.Dona-Radiologist 2: | | | | | | MONE INIGUEZ, | | | | | | CLOTILDE NOVA | | | | | | | | | | | | | | | | | | 01 36 | | | | | | 90 61MRI BRAIN: | | | | | | 05/28/97 AT 2030 HOURS | | | | | | Dictated: 05/29/97 | | | | | | CLINICAL HISTORY: | | | | | | Abnormal behavior and | | | | | | history of previous | | | | | | headinjury. TECHNIQUE: | | | | | | Unenhanced cerebral | | | | | | MRI. T1 sagittal | | | | | | images. Proton andT2 | | | | | | axial and coronal | | | | | | images. Axial gradient | | | | | | echo images. FINDINGS: | | | | | | In the peripheral | | | | | | posterior right parietal | | | | | | region | | | | | | probablyextra-axial in | | | | | | location seen only on | | | | | | proton and T2-weighted | | | | | | images trang small | | | | | | crescent-shaped region | | | | | | of hyperintensity. | | | | | | This is not evidenton | | | | | | the gradient echo | | | | | | images, however, this | | | | | | particular exact | | | | | | axiallevel is between | | | | | | two slices on the | | | | | | gradient echo images. | | | | | | It mayrepresent | | | | | | minimal old hemorrhage. | | | | | | No parenchymal | | | | | | abnormalities | | | | | | areidentified. The | | | | | | ventricular system, | | | | | | midline structures, and | | | | | | vascularflow voids are | | | | | | normal. Paranasal | | | | | | sinuses and mastoids are | | | | | | clear. IMPRESSION: 1. | | | | | | Possible minimal | | | | | | residual old hemorrhage | | | | | | in the right | | | | | | posteriorparietal region | | | | | | extra-axial in | | | | | | location. 2. No other | | | | | | abnormalities | | | | | | identified. END OF | | | | | | IMPRESSION: | | | | + + + + + + + + | Specimen | + + | | + + + + + | Narrative | Performed At | + + + | Ordered by MARI MICHAEL | | + + + + +---------+ + + | Performing | Address | City/State/Zipcode | Phone Number | | Organization | | | | + +---------+ + + | [facility] DEPARTMENT OF | | | | | RADIOLOGY | | | | + +---------+ + + documented in this encounter Visit Diagnoses Not on filedocumented in this encounter"
--- OUTSIDE RECORDS SUMMARY | ~2020-03-07 | XMS | Clinical Summary ---
Demographics + + + | Address | [address] | | | [place] [address] | + + + | Home Phone | | + + + | Preferred Language | Unknown | + + + | Marital Status | Single | + + + | Yarsanism Affiliation | 1013 | + + + | Race | Unknown | + + + | Ethnic Group | Unknown | + + + Author + + + | Author | [facility] | | | and [place] | + + + | Organization | [facility] | | | and [...] Team Providers + +------+ + | Care Compensation And Hris Analyst Name | Role | Phone | + [...] Vaccine: Influenza | | | | | (#1) | 0 | | | + + +-------+ + Results Not on filefrom Last 3 Months"
--- OUTSIDE RECORDS SUMMARY | ~2020-03-07 | XMS | Encounter Summary ---
Demographics + + + | Address | [address] | | | [place] [address] | + + + | Home Phone [...] [place] | | | | | [address] | | + + + + + | Evita Coffey | ECON | Unknown | | + + + + + Care Team Providers + +------+ + | Care Back Tender Cylinder Name | Role | Phone | + +------+ + PCP | Unavailable | + +------+ + Encounter Details +--------+ + + + + | Date | Type | Department | Care Team | Description | +--------+ + + + + | 05/28/ | Results | | Other, Faculty | | | 1996 | Only | | [phone] | | +--------+ + + + + [...] | | + +---------+ + + | [facility] DEPARTMENT OF | | | | | RADIOLOGY | | | | + +---------+ + + documented in this encounter Visit Diagnoses Not on filedocumented in this encounter"
--- OUTSIDE RECORDS SUMMARY | ~2020-03-07 | XMS | Encounter Summary ---
Demographics + + + | Address | [address] | | | [place] [address] | + + + | Home Phone | | + + + | Preferred Language | Unknown | + + + | Marital Status | Single | + + + | Roman Catholic Affiliation | NON | + + [...] [place] | | | | | [address] | | + + + + + | Evita Coffey | ECON | Unknown | | + + + + + Care Team Providers + +------+ + | Care Grid Maker Name | Role | Phone | + +------+ + PCP | Unavailable | + +------+ + Encounter Details +--------+ + + + + | Date | Type | Department | Care Team | Description | +--------+ + + + + | 09/24/ | Results | | Other, Faculty | | | 2000 | Only | | [phone] | | +--------+ + + + + [...] + + + + + | [facility] DEPARTMENT OF | [address] | [place] [address] | | | PATHOLOGY | [address] | | | + + + + + | [facility] DEPARTMENT OF | [address] | [place] [address] | | | PATHOLOGY | [address] [...] + | [facility] DEPARTMENT OF | [address] | [place] [address] | | | PATHOLOGY | [address] | | | + + + + + | [facility] DEPARTMENT OF | [address] | [place] [address] | | | PATHOLOGY | [address] [...] + + + + + | [facility] DEPARTMENT OF | [address] | [place] [address] | | | PATHOLOGY | [address] | | | + + + + + | [facility] | [address] | [place] [address] | | | PATHOLOGY | [address] [...] | Drug of abuse tests performed at [facility] are for | | | medical [...] | + + + + + | [facility] | [address] | [place] [address] | | | LABORATORY | | | [...] DEPARTMENT OF | [address] | [place] [address] | | | PATHOLOGY | [address] | | | + + + + + | [facility] DEPARTMENT OF | [address] | [place] [address] | | | PATHOLOGY | [address] [...] + + + + + | [facility] DEPARTMENT OF | [address] | [place] [address] | | | PATHOLOGY | [address] | | | + + + + + | [facility] DEPARTMENT OF | [address] | [place] [address] | | | PATHOLOGY | [address] | | | + + + + + documented in this encounter Visit Diagnoses Not on filedocumented in this encounter
--- OUTSIDE RECORDS SUMMARY | ~2020-03-07 | XMS | Encounter Summary ---
Demographics + + + | Address | [address] | | | [place] [address] | + + + | Home Phone [...] [place] | | | | | [address] | | + + + + + | Evita Coffey | ECON | Unknown | | + + + + + Care Team Providers + +------+ + | Care Aircraft Maintenance Supervisor Name | Role | Phone | [...] as of this encounter Discharge Summaries Interface, Slabber Light In - 06/22/2006 5:[address] [address] [facility] MEDICAL SUMMARY OF HOSPITALIZATION Med Rec No: [id number] Admission Date: 09/22/2000 Name: Willi Toledo Discharge Date: 09/30/2000 STAFF PHYSICIAN: Ramos Ojdea M.D. DSM4 DIAGNOSES: Tioga I: Schizoaffective disorder. Tioga II: Deferred. Tioga III:History of closed head injury at age [age]. Tioga IV:Chronic mental illness, unstable living situation, recent hospitalization. Tioga V: GAF 20. PRINCIPAL PROCEDURE: Psychopharmacotherapy. ADDITIONAL [...] disorder. The patient was brought into the [facility] on 07/13/2000 by his mother and uncle [...] mg per day. Following admission to the [facility], the patient was found to be psychotic, [...] depressive symptoms. The patient was transferred to [address] [place] [address] and has been pleasant and cooperative since [...] in 1996. He began treatment at the [facility] in January 1997 and was transferred to [facility] on 05/27/1997 where he remained for one week. Mental status exam at that time included ideas of reference, sabianist perseveration, and paranoia. He was diagnosed with undifferentiated schizophrenia and discharged back to [facility] on Olanzapine 10 mg b.i.d. Prior to admission, the patient had been seeing a psychiatrist, Dr. Brandt, on an outpatient basis at [facility]. PAST MEDICAL HISTORY: The patient sustained [...] average student. 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 The patient reports being sexually active since the age of 12. The patient lives with his mother in [place]. He does not have any contact with [...] with recommendations to the primary team at [facility] that he can be increased by [...] As toleratd. DIET: Regular. FOLLOW-UP: Return to [facility]. Further follow-up is to be determined by the primary treatment team there. Yessi Tucker M.D. Ramos Ojeda M.D. LA:x11 cc: JANINE LEYVA FAX [phone] cc: [id number] signed by Interface, Slabber Light In at 06/22/2006 5:18 AM PSTInterf keila, Slabber Light In - 06/22/2006 5:18 AM PST [address] [address] [facility] MEDICAL SUMMARY OF HOSPITALIZATION Med Rec No: [id number] Admission Date: 09/22/2000 Name: Willi Toledo Discharge Date: 09/30/2000 ATTENDING PHYSICIAN:Ramos Ojeda M.D. DSM - IV Tioga I - Schizoaffective disorder. Tioga II - Deferred. Tioga III - History of closed head injury at age [age]. Tioga IV - Chronic mental illness, unstable living situation, recent hospitalization. Tioga V - Global assessment of functioning (GAF) [...] disorder. This patient was brought into the [facility] on July 13, 2000 by his [...] mg. per day. Following admission to the [facility] the patient was found to be psychotic, [...] depressive symptoms. The patient was transferred to [facility]. He has been pleasant and cooperative [...] in 1996. He began treatment at the [facility] in January 1997, and was transferred to [facility] ([facility]) May 27, 1997, where he remained for one week. Mental status exam at that time included ideas of reference, sabianist perseveration, and paranoia. He was diagnosed with undifferentiated schizophrenia, and discharged back to [facility] on Olanzapine 10 mg. b.i.d.. Prior to admission the patient had been seeing a psychiatrist, Dr. Brandt on an outpatient basis at [facility]. PAST MEDICAL HISTORY: The patient sustained [...] average student. 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 He has also done work in [place]. The patient reports being sexually active since the age of 12. The patient lives with his mother in [place]. He does not have any contact with [...] with recommendations to the primary team at [facility] that he can be increased by [...] Regular. ACTIVITY: As tolerated. FOLLOWUP: Return to [facility]. Further followup to be determined by the primary treatment team there. Yessi Tucker M.D. Ramos Ojeda M.D. FAX TO: [facility] FAX [phone] cc: [id number] signed by Interface, Slabber Light In at 06/22/2006 5:18 AM PSTdocume nted in this encounter Plan of Treatment Not on filedocumented as of this encounter Visit Diagnoses Not on filedocumented in this encounter
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
--- OUTSIDE RECORDS SUMMARY | ~2020-03-07 | XMS | Encounter Summary ---
Demographics + + + | Address | [address] | | | [place] [address] | + + + | Home Phone [...] Author + + + | Author | [facility] | + + + | Organization | [facility] | + + + | Address | Unknown | + + + | Phone | Unavailable | + + + Support + + + + + | Name | Relationship | Address | Phone | + + + + + | Lanny Stern | ECON | [address] | | | | | [place] | | | | | [address] | | + + + + + | Evita Coffey | ECON | Unknown | | + + + + + Care Team Providers + +------+ + | Care Tray Checker Name | Role | Phone | + [...] [address] | | | | | [place], [place] | [place], [place] | | | | | [address] | [address] | | | | | [phone] | [phone] | | | | | | | [...] [facility] | [address] | [place] [address] | | | PATHOLOGY | [address] | | | + + + + + | [facility] | [address] | [place] [address] | | | PATHOLOGY | [address] | | | + + + + + MAGNESIUM, PLASMA (09/14/2006 6:42 AM PST) + +-------+ + + + | Component | Value | Ref Range | Performed | Pathologist | | | | | At | Signature | + +-------+ + + + | MAGNESIUM,P | 2.3 | 1.8 - 2.5 mg/dL | [facility] | | | LASMA [...] | + + + + + | [facility] DEPARTMENT OF | [address] | [place] [address] | | | PATHOLOGY | [address] | | | + + + + + | [facility] DEPARTMENT OF | [address] | [place] [address] | | | PATHOLOGY | [address] [...] | + + + + + | [facility] DEPARTMENT | [address] | [place] [address] | | | PATHOLOGY | [address] | | | + + + + + | [facility] | [address] [place] [address] | [place] [address] | | | PATHOLOGY | [address] [...] DEPARTMENT OF | [address] | [place] [address] | | | PATHOLOGY | [address] | | | + + + + + | [facility] DEPARTMENT OF | [address] | [place] [address] | | | PATHOLOGY | [address] [...] DEPARTMENT OF | [address] | [place] [address] | | | PATHOLOGY | [address] | | | + + + + + | [facility] DEPARTMENT OF | [address] | [place] [address] | | | PATHOLOGY | [address] [...] | + + + + + | [facility] DEPARTMENT OF | [address] | [place] [address] | | | PATHOLOGY | [address] | | | + + + + + | [facility] DEPARTMENT OF | [address] | [place] [address] | | | PATHOLOGY | [address] [...] DEPARTMENT OF | [address] | [place] [address] | | | PATHOLOGY | [address] | | | + + + + + | [facility] | [address] | [place] [address] | | | PATHOLOGY | [address] | | | + + + + + documented in this encounter Visit Diagnoses Not on filedocumented in this encounter"
--- OUTSIDE RECORDS SUMMARY | ~2020-03-07 | XMS | Encounter Summary ---
Demographics + + + | Address | [address] | | | [place] [address] | + + + | Home Phone | | + + + | Preferred Language | Unknown | + + + | Marital Status | Single | + + + | Mormon Affiliation | NON | + + + | Race | White | + + + | Ethnic Group | Not or | + + + Author + + + | Author | [facility] | + + + | Organization | [facility] | + + + | Address | Unknown | + + + | Phone | Unavailable | + + + Support + + + + + | Name | Relationship | Address | Phone | + + + + + | Lanny Stern | ECON | [address] | | | | | [place] | | | | | [address] | | + + + + + | Evita Coffey | ECON | Unknown | | + + + + + Care Team Providers + +------+ + | Care Weigher And Grader Name | Role | Phone | + +------+ + PCP | Unavailable | + +------+ + Encounter Details +--------+ + + + + | Date | Type | Department | Care Team | Description | +--------+ + + + + | 09/26/ | Procedure - | UNKNOWN DEPARTMENT | Other, Faculty | EEG | | 2000 | | [address] | [phone] | | | | Transcribed | [address] | | | | | | [place], [place] | | | | | | [address] | | | +--------+ + + + [...] noted. Nino Capps M.D. DECLAN / [place] [id number] / [id number] / [id number] / documented in this encou nter Plan [...] | | DS / HS | | [id number] / [id number] / [id number] / | | | | | | | + + documented in this encounter Visit Diagnoses Not on filedocumented in this encounter"
--- OUTSIDE RECORDS SUMMARY | ~2020-03-07 | XMS | Encounter Summary ---
Demographics + + + | Address | [address] | | | [place] [address] | + + + | Home Phone | | + + + | Preferred Language | Unknown | + + + | Marital Status | Single | + + + | Sabianism Affiliation | NON | + + + | Race | White | + + + | Ethnic Group | Not or | + + + Author + + + | Author | [facility] | + + + | Organization | [facility] | + + + | Address | Unknown | + + + | Phone | Unavailable | + + + Support + + + + + | Name | Relationship | Address | Phone | + + + + + | Lanny Stern | ECON | [address] | | | | | [place] | | | | | [address] | | + + + + + | Evita Coffey | ECON | Unknown | | + + + + + Care Team Providers + +------+ + | Care Crew Dispatcher Name | Role | Phone | + [...] [id number] | | | | | | [place], [place] | | | | | | [address] | | | | | | [phone] | | | +--------+ + + + [...] | + + + + + | [facility] | [address] | [place] [address] | | | PATHOLOGY | [address] [...] | + + + + + | [facility] | [address] | [place] [address] | | | PATHOLOGY | [address] [...] | + + + + + | [facility] | [address] | [place] [address] | | | PATHOLOGY | [address] [...] | + + + + + | [facility] | [address] | [place] [address] | | | PATHOLOGY | [address] [...] | + + + + + | [facility] | [address] | [place] [address] | | | PATHOLOGY | [address] [...] | + + + + + | [facility] | [address] | [place] [address] | | | PATHOLOGY | [address] | | | + + + + + documented in this encounter Visit Diagnoses Not on filedocumented in this encounter"
--- OUTSIDE RECORDS SUMMARY | ~2020-03-07 | XMS | Clinical Summary ---
Demographics + + + | Address | [address] | | | [place] [address] | + + + | Home Phone | | + + + | Preferred Language | Unknown | + + + | Marital Status | Single | + + + | Restoration Affiliation | NON | + + + [...] [place] | | | | | [address] | | + + + + + | Evita Coffey | ECON | Unknown | | + + + + + Care Team Providers + +------+ + | Care Storyboard Artist Name | Role | Phone | + +------+ + PCP | Unavailable | + +------+ + Source Comments ELDER is fully live on both EpicCare Ambulatory and EpicCare InPatient.[facility] Allergies + + + + + + [...] | | | | | | | [address] | | + +--------+ +--------+ + +--------+ [...] | | 1979 | | [place] [address] | | | des | | | 0 (Home) | | + +--------+ +--------+ + + | Willi Toledo | Behavi | Self | [birth year] | [address] | | | oral | | 1979 | [address] | [place] [address] | | | Health | | | 0 (Home) | | + +--------+ +--------+ + + | Willi Toledo | Psych | Self | [birth year] | [address] | | | | | 1980 | [phone] | [place] [address] | | | | | | 0 (Home) | | + +--------+ +--------+ + + Advance Directives + + + + + | Type | Date Recorded | Patient | Explanation | | | | Ndt Inspector | | + + + + + | Advance | | | | | Directives and | | | | | Living Will | | | | + + + + + | Power of | | | | | Air Reduction Equipment Operator | | | | + + [...]
--- OUTSIDE RECORDS SUMMARY | ~2020-03-07 | XMS | Encounter Summary ---
Demographics + + + | Address | [address] | | | [place] [address] | + + + | Home Phone | | + + + | Preferred Language | Unknown | + + + | Marital Status | Single | + + + | Anabaptism Affiliation | NON | + + + | Race | White | + + + | Ethnic Group | Not or | + + + Author + + + | Author | [facility] | + + + | Organization | [facility] | + + + | Address | Unknown | + + + | Phone | Unavailable | + + + Support + + + + + | Name | Relationship | Address | Phone | + + + + + | Lanny Stern | ECON | [address] | | | | | [place] | | | | | [address] | | + + + + + | Evitaduarte Coffey | ECON | Unknown | | + + + + + Care Team Providers + +------+ + | Care Spray Gun Striper Name | Role | Phone | + +------+ + PCP | Unavailable | + +------+ + Encounter Details +--------+ + + + + | Date | Type | Department | Care Team | Description | +--------+ + + + + | 06/03/ | Discharge | Allergy Clinic at | Summary, Discharge | D/C Summary ODDS | | 1996 | Summary-Tra | [facility] [address] | | | | | nscribed | [address] | | | | | | [address] | | | | | | [address] | | | | | | [place], [place] | | | | | | [address] | | | | | | [phone] | | | +--------+ + + + [...] as of this encounter Discharge Summaries Interface, Library Services Assistant In - 10/04/2006 1:01 AM PST [address] [address] [facility] MEDICAL SUMMARY OF HOSPITALIZATION Med Rec No.: [id number] Admission Date: 05/27/97 Name: Willi Toledo Discharge Date: 06/03/97 STAFF PHYSICIAN: Ramos Ojeda M.D. Grinder Mill Operator, Psychiatry DSM-IV DIAGNOSIS: AXIS I:Schizophrenia, undifferentiated. AXIS [...] mental illness. He has been treated at [facility] since late January 1997. His mental status was essentially unchanged from February 13 to the date of admission. He is referred to [facility] for evaluation and treatment recommendations. [...] water. There is a strong element of gnosticist perseveration in the patient's thought content. He [...] injury. Transfer notes accompanying the patient to [facility] mention an abnormal EEG obtained at a hospital in [place], [place]. MEDICATIONS: While at [facility], the patient was tried on a [...] Depakote was tapered off in favor of Porterdale therapy. 9. Porterdale was begun at 600 mg per day, increased to 900 mg per day on 04/19/97, reduced to 600 mg per day on 05/06/97 and discontinued around 05/16/97 when Depakote at 1,000 mg per day was restarted. 10. Fluoxetine in conjunction with Porter[place] and neuroleptics was begun on 04/16/97. From [...] to return to his parent's house in [place] upon his discharge. He reports being an [...] person. He states that he is in [place] at the "[facility]." He identifies the date incorrectly as [...] HOSPITAL COURSE: The patient was admitted to [facility] for assessment, observation, and treatment. An [...] mg b.i.d. The patient was discharged to [facility] on 06/03/97. Medical workup at [facility] failed to reveal any organic [...] tolerated. Followup: The patient is transferred to [facility] where he is court committed for treatment of mental illness. Doni Soriano M.D. Resident, Psychiatry Ramos Ojeda M.D. Grinder Mill Operator, Psychiatry NAZARIO/myranda P FAX: 1NW cc: [place] [phone] documented in this encounter Plan of Treatment Not on filedocumented as of this encounter Visit Diagnoses Not on filedocumented in this encounter
--- OUTSIDE RECORDS SUMMARY | ~2020-03-07 | XMS | Encounter Summary ---
Demographics + + + | Address | [address] | | | [place] [address] | + + + | Home Phone | | + + + | Preferred Language | Unknown | + + + | Marital Status | Single | + + + | Denominational Affiliation | NON | + + + | Race | White | + + + | Ethnic Group | Not or | + + + Author + + + | Author | [facility] | + + + | Organization | [facility] | + + + | Address | Unknown | + + + | Phone | Unavailable | + + + Support + + + + + | Name | Relationship | Address | Phone | + + + + + | Lanny Stern | ECON | [address] | | | | | [place] | | | | | [address] | | + + + + + | Evita Coffey | ECON | Unknown | | + + + + + Care Team Providers + +------+ + | Care Skating Rink Ice Maker Name | Role | Phone | + +------+ + PCP | Unavailable | + +------+ + Encounter Details +--------+ + + + + | Date | Type | Department | Care Team | Description | +--------+ + + + + | 09/26/ | Procedure - | UNKNOWN DEPARTMENT | Other, Faculty | EEG | | 2000 | | [address] [facility] | [phone] | | | | Transcribed | [address] | | | | | | [place], [place] | | | | | | [address] | | | +--------+ + + + [...] noted. Nino Capps M.D. DECLAN / BRYANT [id number] / [id number] / [id number] / documented in this encou nter Plan [...] | | DS / HS | | [id number] / [id number] / [id number] / | | | | | | | + + documented in this encounter Visit Diagnoses Not on filedocumented in this encounter"
--- OUTSIDE RECORDS SUMMARY | ~2020-03-07 | XMS | Clinical Summary ---
Demographics + + + | Address | [address] | | | [place] [address] | + + + | Home Phone | | + + + | Preferred Language | Unknown | + + + | Marital Status | Single | + + + | Sabianist Affiliation | NON | + + + [...] [place] | | | | | [address] | | + + + + + | Evita Coffey | ECON | Unknown | | + + + + + Care Team Providers + +------+ + | Care Cork Molder Name | Role | Phone | + +------+ + PCP | Unavailable | + +------+ + Source Comments ELDER is fully live on both EpicCare Ambulatory and EpicCare InPatient.[facility] Allergies + + + + + [...] | | | | | | | [address] | | + +--------+ +--------+ + +--------+ [...] | | 1979 | | [place] [address] | | | des | | | 0 (Home) | | + +--------+ +--------+ + + | Willi Toledo | Behavi | Self | [birth year] | [address] | | | oral | | 1979 | [address] | [place] [address] | | | Health | | | 0 (Home) | | + +--------+ +--------+ + + | Willi Toledo | Psych | Self | [birth year] | | [address] | | | | | 1980 | [phone] | [place] [address] | | | | | | 0 (Home) | | + +--------+ +--------+ + + Advance Directives + + + + + | Type | Date Recorded | Patient | Explanation | | | | Cotton Expert | | + + + + + | Advance | | | | | Directives and | | | | | Living Will | | | | + + + + + | Power of | | | | | Gas Engine Operator Generators | | | | + + + [...]
--- OUTSIDE RECORDS SUMMARY | ~2020-03-07 | XMS | Encounter Summary ---
Demographics + + + | Address | [address] | | | [place] [address] | + + + | Home Phone | | + + + | Preferred Language | Unknown | + + + | Marital Status | Single | + + + | Moravian Affiliation | NON | + + + | Race | White | + + + | Ethnic Group | Not or | + + + Author + + + | Author | [facility] | + + + | Organization | [facility] | + + + | Address | Unknown | + + + | Phone | Unavailable | + + + Support + + + + + | Name | Relationship | Address | Phone | + + + + + | Lanny Stern | ECON | [address] | | | | | [place] | | | | | [address] | | + + + + + | Evita Coffey | ECON | Unknown | | + + + + + Care Team Providers + +------+ + | Care Pole Climber Name | Role | Phone | + +------+ + PCP | Unavailable | + +------+ + Encounter Details +--------+ + + + + | Date | Type | Department | Care Team | Description | +--------+ + + + + | 09/27/ | Procedure - | UNKNOWN DEPARTMENT | Other, Faculty | EEG | | 2000 | | [address] [facility] | [phone] | | | | Transcribed | [address] | | | | | | [place], [place] | | | | | | [address] | | | +--------+ + + + [...] throughout this recording reveals a poorly formed wzr-iz-ywlfrmnj voltage posterior rhythm ranging between 7 and [...] Woodard M.D. [facility] / [id number] / [id number] / [id number] / 20482 C:10/12/2000 documented in this encou nter Plan [...] | Other, Faculty - 09/27/2000 12:00 AM [facility] CLINICAL NEUROPHYSIOLOGY | | | [...] recording reveals a poorly formed | | mkx-ba-pwcufhiv voltage posterior rhythm ranging between 7 and [...] | | MCS / HS | | [id number] / [id number] / [id number] / [id number] | | | | | | C:10/12/2000 | | | + + documented in this encounter Visit Diagnoses Not on filedocumented in this encounter"
--- OUTSIDE RECORDS SUMMARY | ~2020-03-07 | XMS | Encounter Summary ---
Demographics + + + | Address | [address] | | | [place] [address] | + + + | Home Phone | | + + + | Preferred Language | Unknown | + + + | Marital Status | Single | + + + | Worship Affiliation | NON | + + + [...] [place] | | | | | [address] | | + + + + + | Evitaduarte Coffey | ECON | Unknown | | + + + + + Care Team Providers + +------+ + | Care Automobile Upholstery Trim Installer Name | Role | Phone | + +------+ + PCP | Unavailable | + +------+ + Encounter Details +--------+ + + + + | Date | Type | Department | Care Team | Description | +--------+ + + + + | 09/13/ | Inpatient | Allergy Clinic at | Report, Inpatient | InPt Prog Notes | | 2006 | Progress | [facility] [address] | Consultation | | | | Notes-Trans | [address] | | | | | shelley | [address] | | | | | | [address] | | | | | | [place], [place] | | | | | | [address] | | | | | | [phone] | | | +--------+ + + + [...] as of this encounter Progress Notes Interface, Winch Truck Operator In - 10/30/2006 3:30 AM [facility] [id number] 09/13/2006 09/13/2006 [id number] PRITESH MABRY [id number] Consulting Physician: Christiano Urbina M.D. Consultation Date: 09/13/2006 Referring Physician: Dr. Marquita Wade Reason For Requested Consultation: Mr. Willi Toledo is a 26-year-old gentleman with a history of paranoid schizophrenia who lives in [place] [facility] [place] in [place], [place] who was transferred from [facility] for management of pneumomediastinum. [place] on September 09, 2006, and was found hypothermic on September 11, 2006. Chest x-ray and CT scan at that time showed pneumomediastinum. He was sent back to the home, however, returned to the emergency room on September 12, 2006, diaphoretic with chest pain. He was transferred to [facility] for further management. On arrival at [facility], Mr. Toledo was found to have no [...] Seroquel. Medication list is incomplete and his [place] with be contacted for more complete listing [...] as well as transfer back to the [place] and the appropriateness of this. One hour time was spent on Mr. Toledo' case, greater than 50% of the time was spent in consultation and arrangement of care. Judson Baca M.D. Christiano Urbina M.D. PS / BRYANT [id number] / [id number] / [id number] / cc: * Dr. Marquita Wade [facility] Electronically signed by Christiano Urbina 10-29-2006 08:04:59 AM documented in this encounter Plan of Treatment Not on filedocumented as of this encounter Visit Diagnoses Not on filedocumented in this encounter"
--- OUTSIDE RECORDS SUMMARY | ~2020-03-07 | XMS | Encounter Summary ---
Demographics + + + | Address | [address] | | | [place] [address] | + + + | Home Phone [...] Author + + + | Author | [facility] | + + + | Organization | [facility] | + + + | Address | Unknown | + + + | Phone | Unavailable | + + + Support + + + + + | Name | Relationship | Address | Phone | + + + + + | Lanny Stern | ECON | [address] | | | | | [place] | | | | | [address] | | + + + + + | Evita Coffey | ECON | Unknown | | + + + + + Care Team Providers + +------+ + | Care Rating Examiner Name | Role | Phone | + [...] [address] | | | | | [place], [place] | [place], [place] | | | | | [address] | [address] | | | | | [phone] | [phone] | | | | | | | [...] | + + + + + | [facility] | [address] | [place] [address] | | | PATHOLOGY | [address] | | | + + + + + | [facility] | [address] | [place] [address] | | | PATHOLOGY | [address] | | | + + + + + MAGNESIUM, PLASMA (09/14/2006 6:42 AM PST) + +-------+ + + + | Component | Value | Ref Range | Performed | Pathologist | | | | | At | Signature | + +-------+ + + + | MAGNESIUM,P | 2.3 | 1.8 - 2.5 mg/dL | [facility] | | | LASMA [...] | + + + + + | [facility] DEPARTMENT OF | [address] | [place] [address] | | | PATHOLOGY | [address] | | | + + + + + | [facility] DEPARTMENT OF | [address] | [place] [address] | | | PATHOLOGY | [address] [...] | + + + + + | [facility] DEPARTMENT | [address] | [place] [address] | | | PATHOLOGY | [address] | | | + + + + + | [facility] | [address] [place] [address] | [place] [address] | | | PATHOLOGY | [address] [...] DEPARTMENT OF | [address] | [place] [address] | | | PATHOLOGY | [address] | | | + + + + + | [facility] DEPARTMENT OF | [address] | [place] [address] | | | PATHOLOGY | [address] [...] DEPARTMENT OF | [address] | [place] [address] | | | PATHOLOGY | [address] | | | + + + + + | [facility] DEPARTMENT OF | [address] | [place] [address] | | | PATHOLOGY | [address] [...] | + + + + + | [facility] DEPARTMENT OF | [address] | [place] [address] | | | PATHOLOGY | [address] | | | + + + + + | [facility] DEPARTMENT OF | [address] | [place] [address] | | | PATHOLOGY | [address] [...] DEPARTMENT OF | [address] | [place] [address] | | | PATHOLOGY | [address] | | | + + + + + | [facility] | [address] | [place] [address] | | | PATHOLOGY | [address] | | | + + + + + documented in this encounter Visit Diagnoses Not on filedocumented in this encounter"
--- OUTSIDE RECORDS SUMMARY | ~2020-03-07 | XMS | Encounter Summary ---
Demographics + + + | Address | [address] | | | [place] [address] | + + + | Home Phone | | + + + | Preferred Language | Unknown | + + + | Marital Status | Single | + + + | Hinduism Affiliation | NON | + + + [...] [place] | | | | | [address] | | + + + + + | Evita Coffey | ECON | Unknown | | + + + + + Care Team Providers + +------+ + | Care Shoe Folder Name | Role | Phone | + +------+ + PCP | Unavailable | + +------+ + Encounter Details +--------+ + + + + | Date | Type | Department | Care Team | Description | +--------+ + + + + | 09/24/ | Results | | Other, Faculty | | | 2000 | Only | | [phone] | | +--------+ + + + + [...] + + | [facility] DEPARTMENT OF | [address] | [place] [address] | | | PATHOLOGY | [address] | | | + + + + + | [facility] DEPARTMENT OF | [address] | [place] [address] | | | PATHOLOGY | [address] [...] + | [facility] DEPARTMENT OF | [address] | [place] [address] | | | PATHOLOGY | [address] | | | + + + + + | [facility] DEPARTMENT OF | [address] | [place] [address] | | | PATHOLOGY | [address] [...] + + | [facility] DEPARTMENT OF | [address] | [place] [address] | | | PATHOLOGY | [address] | | | + + + + + | [facility] | [address] | [place] [address] | | | PATHOLOGY | [address] [...] | Drug of abuse tests performed at [facility] are for | | | [...] | + + + + + | [facility] | [address] | [place] [address] | | | LABORATORY | | | [...] DEPARTMENT OF | [address] | [place] [address] | | | PATHOLOGY | [address] | | | + + + + + | [facility] DEPARTMENT OF | [address] | [place] [address] | | | PATHOLOGY | [address] [...] + + | [facility] DEPARTMENT OF | [address] | [place] [address] | | | PATHOLOGY | [address] | | | + + + + + | [facility] DEPARTMENT OF | [address] | [place] [address] | | | PATHOLOGY | [address] | | | + + + + + documented in this encounter Visit Diagnoses Not on filedocumented in this encounter
--- OUTSIDE RECORDS SUMMARY | ~2020-03-07 | XMS | Encounter Summary ---
Demographics + + + | Address | [address] | | | [place] [address] | + + + | Home Phone [...] + + + | Author | [facility] | + + + | Organization | [facility] | + + + | Address | Unknown | + + + | Phone | Unavailable | + + + Support + + + + + | Name | Relationship | Address | Phone | + + + + + | Lanny Stern | ECON | [address] | | | | | [place] | | | | | [address] | | + + + + + | Evita Coffey | ECON | Unknown | | + + + + + Care Team Providers + +------+ + | Care Sensor Specialist Name | Role | Phone | [...] [id number] | | | | | | [place], [place] | | | | | | [address] | | | | | | [phone] | | | +--------+ + + + [...] + + + | [facility] | [address] | [place] [address] | | | PATHOLOGY | [address] [...] + + + | [facility] | [address] | [place] [address] | | | PATHOLOGY | [address] [...] + + + | [facility] | [address] | [place] [address] | | | PATHOLOGY | [address] [...] + + + | [facility] | [address] | [place] [address] | | | PATHOLOGY | [address] [...] + + + | [facility] | [address] | [place] [address] | | | PATHOLOGY | [address] [...] + + + | [facility] | [address] | [place] [address] | | | PATHOLOGY | [address] | | | + + + + + documented in this encounter Visit Diagnoses Not on filedocumented in this encounter"
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
--- OUTSIDE RECORDS SUMMARY | ~2020-03-07 | XMS | Encounter Summary ---
Demographics + + + | Address | [address] | | | [place] [address] | + + + | Home Phone | | + + + | Preferred Language | Unknown | + + + | Marital Status | Single | + + + | Voodoo Affiliation | NON | + + + [...] [place] | | | | | [address] | | + + + + + | Evitaduarte Coffey | ECON | Unknown | | + + + + + Care Team Providers + +------+ + | Care Shipyard Painter Apprentice Name | Role | Phone | + +------+ + PCP | Unavailable | + +------+ + Encounter Details +--------+ + + + + | Date | Type | Department | Care Team | Description | +--------+ + + + + | 06/03/ | Discharge | Allergy Clinic at | Summary, Discharge | D/C Summary ODDS | | 1996 | Summary-Tra | [facility] [address] | | | | | nscribed | [place] | | | | | | [place] | | | | | | [address] | | | | | | [place], [place] | | | | | | [address] | | | | | | [phone] | | | +--------+ + + + [...] as of this encounter Discharge Summaries Interface, Administrator In - 10/04/2006 1:01 AM PST [address] [address] [facility] MEDICAL SUMMARY OF HOSPITALIZATION Med Rec No.: [id number] Admission Date: 05/27/97 Name: Willi Toledo Discharge Date: 06/03/97 STAFF PHYSICIAN: Ramos Ojeda M.D. Revenue Integrity Analyst, Psychiatry DSM-IV DIAGNOSIS: AXIS I:Schizophrenia, undifferentiated. AXIS [...] mental illness. He has been treated at [facility] since late January 1997. His mental status was essentially unchanged from February 13 to the date of admission. He is referred to [facility] for evaluation and treatment recommendations. [...] water. There is a strong element of synagogue perseveration in the patient's thought content. He [...] injury. Transfer notes accompanying the patient to [facility] mention an abnormal EEG obtained at a hospital in [place], [place]. MEDICATIONS: While at [facility], the patient was tried on a variety [...] Depakote was tapered off in favor of [place] therapy. 9. [place] was begun at 600 mg per day, increased to 900 mg per day on 04/19/97, reduced to 600 mg per day on 05/06/97 and discontinued around 05/16/97 when Depakote at 1,000 mg per day was restarted. 10. Fluoxetine in conjunction with [place] and neuroleptics was begun on 04/16/97. From [...] to return to his parent's house in [place] upon his discharge. He reports being an [...] person. He states that he is in [place] at the "[facility]." He identifies the date incorrectly [...] HOSPITAL COURSE: The patient was admitted to [facility] for assessment, observation, and treatment. An MRI [...] mg b.i.d. The patient was discharged to [facility] on 06/03/97. Medical workup at [facility] failed to reveal any organic [...] tolerated. Followup: The patient is transferred to [facility] where he is court committed for treatment of mental illness. Doni Soriano M.D. Resident, Psychiatry Ramos Ojeda M.D. Revenue Integrity Analyst, Psychiatry NAZARIO/myranda P FAX: 1NW cc: [place] [phone] documented in this encounter Plan of Treatment Not on filedocumented as of this encounter Visit Diagnoses Not on filedocumented in this encounter
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
== END 2020-03-07 11:50 | disposition home or self-care (01) ==
LOC: ED 09:57
DX: Z00.8 Encounter for other general examination (principal); F17.200 Nicotine dependence, unspecified, uncomplicated; Z88.0 Allergy status to penicillin; Z88.6 Allergy status to analgesic agent; Z88.8 Allergy status to other drugs, medicaments and biological substances; Z79.899 Other long term (current) drug therapy
CPT/HCPCS: 80053; 80176; 81001; 84443; 85025; 99283; G0480

== ENCOUNTER 2020-07-25 10:54 | Emergency (ER) | payer MEDICARE, OTHER ==
[~2020-07-25] VITALS: Ht 152.4 cm; Wt 81.6 kg
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
[2020-07-25] MEDS ORDERED: OXCARBAZEPINE150 MG PO (11:46)
[2020-07-25] MEDS ORDERED: HYDROXYZINE HCL25 MG PO (11:47)
[2020-07-25] MEDS ORDERED: BENZTROPINE MESY2 MG PO (11:47)
[2020-07-25] MEDS ORDERED: OLANZAPINE15 MG PO (11:47)
[2020-07-25] MEDS ORDERED: TYLENOL325 MG PO (11:48)
[2020-07-25] MEDS ORDERED: BENADRYL25 MG PO (11:49)
--- NOTE | 2020-07-25 13:50 | EKG ---
[facility] [address] [place] [address] Signed Normal sinus rhythm Right axis deviation Abnormal ECG When compared with ECG of 17-MAY-2017 10:30, No significant change was found Confirmed by KYRA ROWLAND MD ([id number]) on 07/25/2020 1:50:33 PM Electronically Signed By: KYRA ROWLAND MD 07/25/20 1350 PATIENT NAME: CLOTILDE JONAS TASHSANDIE Electrocardiogram DATE OF : 78 PHYSICIAN: KYRA ROWLAND MD REPORT #: [id number] REPORT IS CONFIDENTIAL AND NOT TO BE RELEASED WITHOUT AUTHORIZATION
== END 2020-07-25 16:00 | disposition short-term general hospital (02) ==
LOC: ED 10:54
DX: F25.9 Schizoaffective disorder, unspecified (principal); Z20.828 Contact with and (suspected) exposure to other viral communicable diseases; F17.200 Nicotine dependence, unspecified, uncomplicated; Z88.0 Allergy status to penicillin; Z88.8 Allergy status to other drugs, medicaments and biological substances; Z79.899 Other long term (current) drug therapy
CPT/HCPCS: 36415; 80053; 80176; 81001; 82140; 84443; 85025; 93005; 93010; 99285-25; C9803; G0480; U0003

== ENCOUNTER 2024-02-16 10:22 | Emergency (ER) | payer MEDICARE, OTHER ==
[~2024-02-16] VITALS: Ht 180.3 cm; Wt 79.8 kg
[~2024-02-16 10:22] MED LIST changes: +BENADRYL25 MG PO; +BENZTROPINE MESY2 MG PO; +HYDROXYZINE HCL25 MG PO; +OLANZAPINE15 MG PO; +OXCARBAZEPINE150 MG PO; +TYLENOL325 MG PO
[2024-02-16 12:23] LABS: ALBUMIN 4.4 g/dL (3.4-5.0); ALBUMIN/GLOBULIN RATIO 1.52 (1.1-2.4); BILIRUBIN, TOTAL 0.7 ng/dL (0.2-1.0); BUN/CREATININE RATIO 2.66 (6.0-28.6); CALCIUM 8.6 mg/dL (8.5-10.1); CREATININE, SERUM 0.75 mg/dL (0.70-1.30); PROTEIN, TOTAL 7.3 g/dL (6.4-8.2)
[2024-02-16 12:30] LABS: BASOPHILS 0.3 % (0-2); EOSINOPHILS 0.1 % (0-6); HEMATOCRIT 42.3 % (35.0-50.0); HEMOGLOBIN 14.6 g/dL (12.0-18.0); LYMPHOCYTES 15.8 % (24-44); MCHC 34.6 g/dl (30-36); MCV 92.5 fl (81-99); MONOCYTES 7.7 % (0-12); NEUTROPHILS 76.1 % (39-80); PLATELET COUNT 269 K/uL (140-440); RBC 4.57 M/ul (4.3-5.7); RDW 14.3 (10.5-15.0)
[2024-02-16] MEDS ORDERED: ZYPREXA10 MG PO (12:33)
[2024-02-16] MEDS ORDERED: KLONOPIN0.5 MG PO (12:33)
[2024-02-16 12:55] VITALS: BP 128/76
== END 2024-02-16 12:55 | disposition home or self-care (01) ==
LOC: ED 10:22
PROVIDERS: Emergency Medicine
DX: Z00.8 Encounter for other general examination (principal); Z79.899 Other long term (current) drug therapy; Z88.0 Allergy status to penicillin; Z88.6 Allergy status to analgesic agent; Z88.8 Allergy status to other drugs, medicaments and biological substances; F17.200 Nicotine dependence, unspecified, uncomplicated
CPT/HCPCS: 36415; 80053; 85025

== ENCOUNTER 2024-02-27 00:21 | Emergency (ER) | payer MEDICARE, OTHER ==
[~2024-02-27] VITALS: Ht 180.3 cm; Wt 78.3 kg
[~2024-02-27 00:21] MED LIST changes: +KLONOPIN0.5 MG PO
--- OUTSIDE RECORDS SUMMARY | 2024-02-27 00:21 | XMS ---
PreManage Notification: CLOTILDE JONAS Security Litigation Services Manager Events No recent Security Events currently on file CRITERIA MET - [facility] - 2 Visits in 30 Days CARE PROVIDERS ASHANTI MILLER Nurse Practitioner: 02/19/2019-Current PHONE: Unknown Care Guidelines exist for the following facilities: [facility] ( 11/27/2019 ) [facility] VISIT COUNT (12 MO.) [address] [place] [address] TOTAL 2 NOTE: Visits indicate total known visits. ED/UCC VISIT TRACKING (12 MO.) 02/27/2024 00:21 [facility] [place] TYPE: Emergency COMPLAINT: - VOLUNTARY HOLD 02/16/2024 10:23 [facility] [place] TYPE: Emergency COMPLAINT: - SUICIDAL DIAGNOSES: - Allergy status to analgesic agent - Allergy status to other drugs, medicaments and biological substances - Allergy status to penicillin - Encounter for other general examination - Nicotine dependence, unspecified, uncomplicated - Other manager long term care (current) drug therapy - Suicidal ideations INPATIENT VISIT TRACKING (12 MO.) No inpatient visits to display in this time frame [email or web address]
[2024-02-27 01:02] LABS: BASOPHILS 0.9 % (0-2); EOSINOPHILS 0.3 % (0-6); HEMATOCRIT 40.6 % (35.0-50.0); HEMOGLOBIN 14.4 g/dL (12.0-18.0); LYMPHOCYTES 28.9 % (24-44); MCH 32.4 (27-36); MCHC 35.4 g/dl (30-36); MCV 91.4 fl (81-99); MONOCYTES 11.1 % (0-12); NEUTROPHILS 58.8 % (39-80); PLATELET COUNT 362 K/uL (140-440); RBC 4.44 M/ul (4.3-5.7); RDW 13.9 (10.5-15.0)
[2024-02-27 01:08] LABS: AMPHETAMINES, URINE NEGATIVE (NEGATIVE); BARBITURATES, URINE NEGATIVE (NEGATIVE); BENZODIAZEPINE, URINE NEGATIVE (NEGATIVE); BUPRENORPHINE, URINE NEGATIVE (NEGATIVE); CANNABINOID, URINE NEGATIVE (NEGATIVE); COCAINE, URINE NEGATIVE (NEGATIVE); ECSTASY, URINE NEGATIVE (NEGATIVE); FENTANYL, URINE NEGATIVE (NEGATIVE); METHADONE, URINE NEGATIVE (NEGATIVE); OPIATES, URINE NEGATIVE (NEGATIVE); OXYCODONE, URINE NEGATIVE (NEGATIVE); PHENCYCLIDINE, URINE NEGATIVE (NEGATIVE)
[2024-02-27 01:22] LABS: ACETAMINOPHEN 0 ug/mL (10-30); ALBUMIN 4.3 g/dL (3.4-5.0); ALBUMIN/GLOBULIN RATIO 1.43 (1.1-2.4); ALCOHOL, MEDICAL <3 ng/dL (<3); ALKALINE PHOSPHATASE 112 U/L (46-116); ALT (SGPT) 24 U/L (14-59); ANION GAP 13.3 (7-21); AST (SGOT) 14 U/L (15-37); BILIRUBIN, TOTAL 0.5 ng/dL (0.2-1.0); BUN/CREATININE RATIO 2.53 (6.0-28.6); CALCIUM 8.9 mg/dL (8.5-10.1); CARBON DIOXIDE 27 mmol/L (21-32); CHLORIDE 89 mmol/L (98-107); CREATININE, SERUM 0.79 mg/dL (0.70-1.30); GLOMERULAR FILTRATION RATE,EST 112 mL/min (>60); POTASSIUM 3.3 mmol/L (3.5-5.1); PROTEIN, TOTAL 7.3 g/dL (6.4-8.2); SALICYLATE 5.4 mg/dL (2.8-20.0); TSH, 3RD GENERATION 1.546 uIU/mL (0.358-3.740); UREA NITROGEN 2 mg/dL (7-18)
[2024-02-27] MEDS ORDERED: POTASSIUM CHLORIDE 10 MEQ TABCR PO ONE (02:15)
[2024-02-27] MEDS ORDERED: QUETIAPINE FUMARATE 25 MG TAB PO ONE (02:15)
[2024-02-27] MEDS ORDERED: ANTIFUNGAL30 G1 TOP (03:42)
[2024-02-27 05:45] LABS: ANION GAP 9.7 (7-21); BUN/CREATININE RATIO 2.77 (6.0-28.6); CALCIUM 8.6 mg/dL (8.5-10.1); CREATININE, SERUM 0.72 mg/dL (0.70-1.30); POTASSIUM 3.7 mmol/L (3.5-5.1)
[2024-02-27] MEDS ORDERED: OLANZapine 10 MG TABDIS PO ONE (11:45)
[2024-02-27] MEDS ORDERED: ZYPREXA ZYDIS10 MG PO (11:50)
[2024-02-27 12:08] VITALS: BP 133/77
--- NOTE | 2024-02-27 16:08 | EKG ---
[facility] [address] [facility] [place] [address] Signed Normal sinus rhythm Left posterior fascicular block Abnormal ECG When compared with ECG of 25-JUL-2020 11:23, No significant change was found Confirmed by SONIA GRIFFITHS MD ([id number]) on 02/27/2024 4:08:38 PM Electronically Signed By: SONIA GRIFFITHS 02/27/24 1608 PATIENT NAME: CLOTILDE JONAS KALYN Electrocardiogram DATE OF : [birth year] PHYSICIAN: SONIA GRIFFITHS REPORT #: [id number] REPORT IS CONFIDENTIAL AND NOT TO BE RELEASED WITHOUT AUTHORIZATION
== END 2024-02-27 12:08 ==
LOC: ED 00:21
PROVIDERS: Internal Medicine
DX: F25.0 Schizoaffective disorder, bipolar type (principal); B35.1 Tinea unguium; F17.200 Nicotine dependence, unspecified, uncomplicated; Z88.0 Allergy status to penicillin; Z88.8 Allergy status to other drugs, medicaments and biological substances; Z79.899 Other long term (current) drug therapy
CPT/HCPCS: 36415; 80048; 80053; 80307; 83735; 84443; 85025; 93005; 93010; 99285; A9270; G0480; U0002

== ENCOUNTER 2024-08-07 13:06 | Emergency (ER) | payer MEDICARE, OTHER ==
[~2024-08-07] VITALS: Ht 180.3 cm; Wt 85.5 kg
[~2024-08-07 13:06] MED LIST changes: +ANTIFUNGAL30 G1 TOP; +ZYPREXA ZYDIS10 MG PO
[2024-08-07] MEDS ORDERED: INVEGA TRI IM (13:16)
[2024-08-07] MEDS ORDERED: CLOZAPINE100 MG PO (13:16)
[2024-08-07] MEDS ORDERED: SERTRALINE HCL50 MG PO (13:16)
[2024-08-07 13:33] LABS: BILIRUBIN, URINE NEGATIVE (negative); BLOOD/HGB, URINE NEGATIVE (Negative); KETONE, URINE NEGATIVE (Negative); LEUK ESTERASE, URINE NEGATIVE (negative); NITRITE, URINE NEGATIVE (negative); PH, URINE 6.5 (5-7)
[2024-08-07 13:52] LABS: AMPHETAMINES, URINE NEGATIVE (NEGATIVE); BARBITURATES, URINE NEGATIVE (NEGATIVE); BENZODIAZEPINE, URINE NEGATIVE (NEGATIVE); BUPRENORPHINE, URINE NEGATIVE (NEGATIVE); CANNABINOID, URINE NEGATIVE (NEGATIVE); COCAINE, URINE NEGATIVE (NEGATIVE); ECSTASY, URINE NEGATIVE (NEGATIVE); FENTANYL, URINE NEGATIVE (NEGATIVE); METHADONE, URINE NEGATIVE (NEGATIVE); OPIATES, URINE NEGATIVE (NEGATIVE); OXYCODONE, URINE NEGATIVE (NEGATIVE); PHENCYCLIDINE, URINE NEGATIVE (NEGATIVE)
[2024-08-07 13:54] LABS: BASOPHILS 0.5 % (0-2); EOSINOPHILS 1.5 % (0-6); HEMATOCRIT 45.7 % (35.0-50.0); HEMOGLOBIN 15.8 g/dL (12.0-18.0); LYMPHOCYTES 26.8 % (24-44); MCH 33.4 (27-36); MCHC 34.6 g/dl (30-36); MCV 96.5 fl (81-99); MONOCYTES 9.7 % (0-12); NEUTROPHILS 61.5 % (39-80); PLATELET COUNT 302 K/uL (140-440); RBC 4.74 M/ul (4.3-5.7); RDW 12.6 (10.5-15.0)
[2024-08-07 14:18] LABS: ACETAMINOPHEN 0 ug/mL (10-30); ALBUMIN 4.4 g/dL (3.4-5.0); ALBUMIN/GLOBULIN RATIO 1.29 (1.1-2.4); ALCOHOL, MEDICAL <3 ng/dL (<3); ALKALINE PHOSPHATASE 92 U/L (46-116); ALT (SGPT) 22 U/L (14-59); ANION GAP 15.3 (7-21); AST (SGOT) 17 U/L (15-37); BILIRUBIN, TOTAL 0.8 ng/dL (0.2-1.0); BUN/CREATININE RATIO 5.15 (6.0-28.6); CALCIUM 8.8 mg/dL (8.5-10.1); CARBON DIOXIDE 29 mmol/L (21-32); CHLORIDE 96 mmol/L (98-107); CREATININE, SERUM 0.97 mg/dL (0.70-1.30); GLOMERULAR FILTRATION RATE,EST 98 mL/min (>60); POTASSIUM 4.3 mmol/L (3.5-5.1); PROTEIN, TOTAL 7.8 g/dL (6.4-8.2); SALICYLATE 7.7 mg/dL (2.8-20.0); TSH, 3RD GENERATION 0.862 uIU/mL (0.358-3.740); UREA NITROGEN 5 mg/dL (7-18)
[2024-08-07] MEDS ORDERED: OLANZapine 10 MG TABDIS PO SCH ×2 (14:50→21:00)
--- NOTE | 2024-08-08 14:05 | EKG ---
[facility] [address] [facility] [place] [address] Signed Normal sinus rhythm Right axis deviation Abnormal ECG When compared with ECG of 27-FEB-2024 07:31, No significant change was found Confirmed by Gilberto Wei MD ([id number]) on 08/08/2024 2:04:48 PM Electronically Signed By: GILBERTO WEI DO 08/08/24 1405 PATIENT NAME: PRITESHCLOTILDE KALYN Electrocardiogram DATE OF : [birth year] PHYSICIAN: GILBERTO WEI DO REPORT #: [id number] REPORT IS CONFIDENTIAL AND NOT TO BE RELEASED WITHOUT AUTHORIZATION
[2024-08-09 10:49] VITALS: BP 138/68
== END 2024-08-09 10:49 | disposition short-term general hospital (02) ==
LOC: ED 13:06
PROVIDERS: Emergency Medicine
DX: F25.9 Schizoaffective disorder, unspecified (principal); F31.9 Bipolar disorder, unspecified; F17.200 Nicotine dependence, unspecified, uncomplicated; Z88.0 Allergy status to penicillin; Z88.6 Allergy status to analgesic agent; Z88.5 Allergy status to narcotic agent; Z79.899 Other long term (current) drug therapy
CPT/HCPCS: 36415; 80053; 80307; 81003; 84443; 85025; 93005; 93010; 99285; A9270; G0480; U0002

== ENCOUNTER 2024-11-22 18:24 | Emergency (ER) | payer MEDICARE, OTHER | END 2024-11-25 07:24 | LOC: ED 18:24 | DX: T42.4X1A Poisoning by benzodiazepines, accidental (unintentional), initial encounter (principal); T44.3X1A Poisoning by other parasympatholytics [anticholinergics and antimuscarinics] and spasmolytics, accidental (unintentional), initial encounter; T43.591A Poisoning by other antipsychotics and neuroleptics, accidental (unintentional), initial encounter; T42.1X1A Poisoning by iminostilbenes, accidental (unintentional), initial encounter; T43.221A Poisoning by selective serotonin reuptake inhibitors, accidental (unintentional), initial encounter; F31.9 Bipolar disorder, unspecified; F25.9 Schizoaffective disorder, unspecified; Z88.0 Allergy status to penicillin; Z88.6 Allergy status to analgesic agent; Z88.5 Allergy status to narcotic agent; Z79.899 Other long term (current) drug therapy ==

== ENCOUNTER 2025-01-11 21:40 | Inpatient (IN) | payer MEDICARE, OTHER ==
[~2025-01-11] VITALS: Ht 180.3 cm; Wt 82.2 kg
[~2025-01-11 21:40] MED LIST changes: +BENZTROPINE MESY1 MG PO; +CLOZAPINE50 MG PO; +INVEGA TRI IM; +SERTRALINE HCL50 MG PO
[2025-01-11 22:40] LABS: BASOPHILS 0.7 % (0.2-1.2); EOSINOPHILS 0.4 % (0.8-7.0); HEMATOCRIT 34.9 % (40.1-51.0); HEMOGLOBIN 12.9 g/dL (13.7-17.5); LYMPHOCYTES 28.9 % (21.8-53.1); MCH 31.5 PG (25.7-32.2); MCV 85.3 fL (79.0-92.2); MONOCYTES 8.8 % (5.3-12.2); PLATELET COUNT 292 K/uL (163-337); RBC 4.09 M/uL (4.63-6.08)
[2025-01-11 23:07] LABS: ACETAMINOPHEN 0 ug/mL (10-30); ALBUMIN 4.1 g/dL (3.4-5.0); ALBUMIN/GLOBULIN RATIO 1.58 (1.1-2.4); ALCOHOL, MEDICAL <3 ng/dL (<3); ALKALINE PHOSPHATASE 119 U/L (46-116); ALT (SGPT) 19 U/L (14-59); ANION GAP 11.6 (7-21); AST (SGOT) 11 U/L (15-37); BILIRUBIN, TOTAL 0.7 mg/dL (0.2-1.0); BUN/CREATININE RATIO 7.01 (6.0-28.6); CALCIUM 8.3 mg/dL (8.5-10.1); CARBON DIOXIDE 25 mmol/L (21-32); CHLORIDE 86 mmol/L (98-107); CREATININE, SERUM 0.57 mg/dL (0.70-1.30); GLOMERULAR FILTRATION RATE,EST 123 mL/min (>60); POTASSIUM 3.6 mmol/L (3.5-5.1); PROTEIN, TOTAL 6.7 g/dL (6.4-8.2); SALICYLATE 7.8 mg/dL (2.8-20.0); TSH, 3RD GENERATION 0.535 uIU/mL (0.358-3.740); UREA NITROGEN 4 mg/dL (7-18)
[2025-01-11] MEDS ORDERED: Sodium Chloride 3% 500 ML IV ONE (23:45)
[2025-01-12] VITALS (7 sets, daily range): BP systolic 120–149; BP diastolic 74–77
[2025-01-12] MEDS ORDERED: Sodium Chloride 3% 100 ML IV ONE ×2 (01:30→07:30)
[2025-01-12 06:27] LABS: ANION GAP 12.7 (7-21); BUN/CREATININE RATIO 7.14 (6.0-28.6); CALCIUM 8.4 mg/dL (8.5-10.1); CREATININE, SERUM 0.56 mg/dL (0.70-1.30); POTASSIUM 3.7 mmol/L (3.5-5.1)
[2025-01-12] MEDS ORDERED: metFORMIN HCL 500 MG TAB PO SCH (08:00)
[2025-01-12 08:15] LABS: BILIRUBIN, URINE NEGATIVE (negative); BLOOD/HGB, URINE NEGATIVE (Negative); KETONE, URINE SMALL (Negative); LEUK ESTERASE, URINE SMALL (negative); NITRITE, URINE POSITIVE (negative)
[2025-01-12 08:22] LABS: EPITHELIAL CELLS, URINE SQUAMOUS 1+ /lpf (0-1+)
[2025-01-12 08:23] LABS: BACTERIA, URINE 1+ /hpf (negative); CASTS, URINE NONE SEEN \\lpf; COLLECTION TYPE, URINE CLEAN CATCH; CRYSTALS, URINE NONE SEEN (0-1+); RED BLOOD CELLS, URINE 0-1 /hpf (0-5); REFLEX CULTURE, URINE Yes (No); WHITE BLOOD CELLS, URINE 21-40 /HPF (0-5)
[2025-01-12 08:30] LABS: AMPHETAMINES, URINE NEGATIVE (NEGATIVE); BARBITURATES, URINE NEGATIVE (NEGATIVE); BENZODIAZEPINE, URINE NEGATIVE (NEGATIVE); BUPRENORPHINE, URINE NEGATIVE (NEGATIVE); CANNABINOID, URINE NEGATIVE (NEGATIVE); COCAINE, URINE NEGATIVE (NEGATIVE); ECSTASY, URINE NEGATIVE (NEGATIVE); FENTANYL, URINE NEGATIVE (NEGATIVE); METHADONE, URINE NEGATIVE (NEGATIVE); OPIATES, URINE NEGATIVE (NEGATIVE); OXYCODONE, URINE NEGATIVE (NEGATIVE); PHENCYCLIDINE, URINE NEGATIVE (NEGATIVE)
[2025-01-12 08:39] LABS: ALBUMIN 3.9 g/dL (3.4-5.0); ALBUMIN/GLOBULIN RATIO 1.44 (1.1-2.4); ANION GAP 12.8 (7-21); BILIRUBIN, TOTAL 0.6 mg/dL (0.2-1.0); BUN/CREATININE RATIO 8.77 (6.0-28.6); CALCIUM 8.3 mg/dL (8.5-10.1); CREATININE, SERUM 0.57 mg/dL (0.70-1.30); POTASSIUM 3.8 mmol/L (3.5-5.1); PROTEIN, TOTAL 6.6 g/dL (6.4-8.2)
[2025-01-12] MEDS ORDERED: SERTRALINE HCL 50 MG TAB PO SCH (09:00)
[2025-01-12] MEDS ORDERED: ENOXAPARIN SODIUM 40 MG/0.4 ML SYR SUB-Q SCH (09:27)
[2025-01-12] MEDS ORDERED: ondansetron HCL 4 MG/2 ML VIAL IV PRN (09:30)
[2025-01-12] MEDS ORDERED: DEXTROSE 5% 1,000 ML IV SCH (09:30)
[2025-01-12] MEDS ORDERED: ACETAMINOPHEN 325 MG TAB PO PRN (09:30)
[2025-01-12 10:25] LABS: ANION GAP 11.7 (7-21); BUN/CREATININE RATIO 4.41 (6.0-28.6); CALCIUM 8.3 mg/dL (8.5-10.1); CREATININE, SERUM 0.68 mg/dL (0.70-1.30); POTASSIUM 3.7 mmol/L (3.5-5.1)
[2025-01-12] MEDS ORDERED: OMEPRAZOLE20 MG PO (10:28)
[2025-01-12] MEDS ORDERED: METFORMIN HCL500 MG PO (10:28)
--- NOTE | 2025-01-12 11:08 | NUR ---
PT RESTING IN BED WITH FLUIDS GOING. PT CURTAIN OPEN AND IN VIEW OF STAFF. PT ON VOLUNTARY HOLD. PT DENIES NEEDS AT THIS TIME.
--- NOTE | 2025-01-12 11:26 | NUR ---
PT MEDICATIONS GIVEN TO PHARMACY TO VERIFY.
--- NOTE | 2025-01-12 11:26 | NUR ---
GREGORY MONTERROSO AND Yaw ALMEIDA THE COMMODE, THE TWO ROLLING TABLES, SMALL TABLE, MANUAL BLOOD PRESSER CUFF, AIRWAY EQUIPMENT AND VITAL MACHINE EQUIPMENT LEFT IN ROOM PER PATIENT NOT BEING MEDICALLY CLEARED, AND CALL LIGHT. CHARGE NURSE CJ AWARE.
[2025-01-12] MEDS ORDERED: CLOZAPINE100 MG PO (11:30)
[2025-01-12] MEDS ORDERED: OXCARBAZEPINE300 MG PO (11:32)
[2025-01-12] MEDS ORDERED: CEFDINIR 300 MG CAP PO SCH (11:57)
[2025-01-12] MEDS ORDERED: PHARMACY RENAL DOSE ADJUSTMENT 1 DOSE MISC PO SCH (12:00)
[2025-01-12] MEDS ORDERED: BENZTROPINE MESYLATE 1 MG TAB PO SCH ×2 (12:00→21:00)
[2025-01-12] MEDS ORDERED: PANTOPRAZOLE SODIUM 40 MG TABEC PO SCH (12:03)
--- NOTE | 2025-01-12 12:06 | NUR ---
CCS IN PT ROOM TO EVALUATE PT.
--- NOTE | 2025-01-12 12:16 | NUR ---
CCS DISCUSSING INTERACTION WITH PT WITH THIS RN. PAPERWORK HAS BEEN TURNED IN FOR INPATIENT PLACEMENT, NEEDS TO BE MEDICALLY CLEARED. CCS STATES PT BECAME TENSE W/ QUESTIONS SO QUESTIONS WERE KEPT BASIC. DENIES SUICIDAL AND HOMICIDAL THOUGHTS AT THIS TIME. CCS PROGRESS NOTE IN CHART. AWARE.
[2025-01-12] MEDS ORDERED: cloZAPine 100 MG TABLET PO SCH (12:34)
--- NOTE | 2025-01-12 12:45 | NUR ---
PT AFTERNOON MEDICATION GIVEN. PT EDUCATED ON MEDICATION NEEDS AND TX PLAN. PT VERBALIZED UNDERSTANDING. NO FURTHER NEEDS AT THIS TIME.
--- NOTE | 2025-01-12 13:26 | NUR ---
PT RESTING IN BED WATCHING TV, RESPIRATIONS EVEN AND UNLABORED. NO NEEDS AT THIS TIME.
--- NOTE | 2025-01-12 14:22 | NUR ---
PT RESTING IN BED IN VISUAL OF STAFF. PT DENIES NEEDS.
--- NOTE | 2025-01-12 15:26 | NUR ---
PT RESTING IN BED WITH EYES CLOSED, SNORING. PT IN VISUALIZATION OF STAFF. NO NEEDS AT THIS TIME.
[2025-01-12 15:44] LABS: ANION GAP 10.5 (7-21); BUN/CREATININE RATIO 6.06 (6.0-28.6); CALCIUM 8.2 mg/dL (8.5-10.1); CREATININE, SERUM 0.66 mg/dL (0.70-1.30); POTASSIUM 3.5 mmol/L (3.5-5.1)
--- NOTE | 2025-01-12 17:00 | NUR ---
PT RESTING IN BED. EVENING MEDICATION GIVEN. PT HAS D5% INFUSING @125ML/HR.
--- NOTE | 2025-01-12 18:51 | NUR ---
PT BROUGHT IN BY EMS TODAY FROM HOME WITH CCS WITH CONCERN HE IS NOT SAFE. PT WAS ON VOLUNTARY HOLD IN ED UNTIL LABS SHOWED HYPONATREMIA. PT ALERT AND ORIENTED TO SELF, SITUATION, AND FOLLOWING INSTRUCTIONS. PT HAS PERSONAL MEDICATION IN LOCK BOX WHICH IS SET IN THE EMR. PT HAS D5% @ 125ML/HR. NO COMPLAINTS OF PAIN AT THIS TIME BUT STATES HE HAS BEEN HEARING VOICES. PT DENIES SUICIDAL OR HOMICIDAL THOUGHTS.
--- NOTE | 2025-01-12 19:13 | NUR ---
RECEIVED REPORT FROM EDEN RASHEED. PT ASLEEP, SNORING LOUDLY. WHITE BOARD UPDATED. CALL LIGHT WITHIN REACH.
--- NOTE | 2025-01-12 20:15 | NUR ---
PT SLEEPING SOUNDLY. AWAKENS TO VOICE BUT REMAINS DROWSY. FLAT AFFECT. DENIES PAIN. LSC. HRR. BTA. VOIDS WNL. IND IN ROOM. LAC IV INFUSING D5 @ 125MLS/HR. CALL LIGHT WITHIN REACH.
[2025-01-12] MEDS ORDERED: OLANZapine 10 MG TAB PO SCH (21:00)
[2025-01-12 21:38] LABS: ANION GAP 10.5 (7-21); BUN/CREATININE RATIO 5.71 (6.0-28.6); CALCIUM 8.6 mg/dL (8.5-10.1); CREATININE, SERUM 0.7 mg/dL (0.70-1.30); POTASSIUM 3.5 mmol/L (3.5-5.1)
--- NOTE | 2025-01-12 22:37 | NUR ---
PT SLEEPING SOUNDLY ON LEFT SIDE. IVF INFUSING. PT IS VISIBLE FROM NURSES STATION.
--- NOTE | 2025-01-12 23:29 | NUR ---
PT SITTING EOB. IVF DC'D PER MD NEW ORDER. DECLINES NEEDS AT THIS TIME.
[2025-01-13] VITALS (11 sets, daily range): BP systolic 113–144; BP diastolic 62–77
--- NOTE | 2025-01-13 01:21 | NUR ---
ADMITTED FOR UTI, HYPONATREMIA. PSYCH HX-SCHIZO & BIPOLAR. VOLUNTARY HOLD FIRST THEN ADMITTED FOR HYPONATREMIA. NA 119 IN ER, CURRENTLY 124. IVF DC'D OVERNIGHT. PT HAS BEEN DROWSY SINCE RESUMING HOME PSYCH MEDS. IND TO [facility] FOR UTI.
--- NOTE | 2025-01-13 03:08 | NUR ---
SLEEPING SOUNDLY. APPEARS COMFORTABLE.
--- NOTE | 2025-01-13 05:02 | NUR ---
Pt declined lab draw, asked several times, refused each time. Primary RN and MD to be notified
--- NOTE | 2025-01-13 05:46 | NUR ---
SLEEPING SOUNDLY, SNORING. APPEARS COMFORTABLE.
--- NOTE | 2025-01-13 07:23 | NUR ---
VERBAL REPORT RECEIVED FROM EDEN LOWE. PT RESTS IN BED AWAKE AND ALERT, NO REQUESTS AT THIS TIME.
[2025-01-13 08:31] LABS: BASOPHILS 0.5 % (0.2-1.2); EOSINOPHILS 0.1 % (0.8-7.0); HEMATOCRIT 40.5 % (40.1-51.0); HEMOGLOBIN 14.7 g/dL (13.7-17.5); LYMPHOCYTES 15.2 % (21.8-53.1); MCH 31.9 PG (25.7-32.2); MCHC 36.3 g/dL (32.3-36.5); MCV 87.9 fL (79.0-92.2); PLATELET COUNT 359 K/uL (163-337); RBC 4.61 M/uL (4.63-6.08)
[2025-01-13 08:47] LABS: ALBUMIN 4.2 g/dL (3.4-5.0); ALBUMIN/GLOBULIN RATIO 1.35 (1.1-2.4); ANION GAP 13.6 (7-21); BILIRUBIN, TOTAL 0.5 mg/dL (0.2-1.0); BUN/CREATININE RATIO 7.14 (6.0-28.6); CALCIUM 8.9 mg/dL (8.5-10.1); CREATININE, SERUM 0.7 mg/dL (0.70-1.30); MAGNESIUM 2.3 mg/dL (1.8-2.4); PHOSPHORUS, INORGANIC 4.1 mg/dL (2.5-4.9); POTASSIUM 3.6 mmol/L (3.5-5.1); PROTEIN, TOTAL 7.3 g/dL (6.4-8.2)
[2025-01-13] MEDS ORDERED: OXcarbazepine 300 MG TAB PO SCH (09:00)
--- NOTE | 2025-01-13 09:23 | NUR ---
PT FINISHED BREAKFAST AND WAS RESTING WITH EYES OPEN IN BED PT REPORTED NO PAIN PT DID NOT WANT WATER CALL LIGHT WITHIN REACH, PT NEEDED NOTHING ELSE AT THIS TIME BED LOW
[2025-01-13] MEDS ORDERED: DEXTROSE 5% 1,000 ML IV SCH (10:00)
[2025-01-13 12:11] LABS: ANION GAP 11.2 (7-21); BUN/CREATININE RATIO 9.37 (6.0-28.6); CALCIUM 8.6 mg/dL (8.5-10.1); CREATININE, SERUM 0.64 mg/dL (0.70-1.30); POTASSIUM 4.2 mmol/L (3.5-5.1)
--- NOTE | 2025-01-13 12:17 | NUR ---
[facility] HERE TO EVALUATE PT.
--- NOTE | 2025-01-13 14:24 | NUR ---
PT LAYING IN BED, WATCHING TV PT REPORTED NO DIZZINESS OR PAIN PT ASKED IF THE DR WAS GOING TO LOOK AT HIS RT TOE, THE BANDAGE CAME OFF THIS MORNING AND IT WAS COVERED BACK UP, BUT THE PT WANTED THE DR TO LOOK AT IT, GREGORY GONGORA REPORTED THIS PT WANT TO HIS NURSE CALL LIGHT WITHIN REACH
--- NOTE | 2025-01-13 14:39 | NUR ---
PT WAS LAYING IN BED WITH EYES OPEN WHEN I WENT IN TO TAKE VITALS GOT PT FRESH ICE WATER CALL LIGHT WITHIN REACH OF PT PT DID NOT WANT ANYTHING ELSE AT THIS TIME
[2025-01-13 16:25] LABS: BUN/CREATININE RATIO 10.12 (6.0-28.6); CALCIUM 8.8 mg/dL (8.5-10.1); CREATININE, SERUM 0.79 mg/dL (0.70-1.30)
--- NOTE | 2025-01-13 16:43 | NUR ---
PATIENT AWAKE AND ALERT IN BED, SISTER AT BEDSIDE VISITING. FLUIDS INCREASED RUNNING AT 200 ML PER HOUR. CALL LIGHT IN REACH. NO REQUESTS AT THIS TIME.
--- NOTE | 2025-01-13 17:38 | NUR ---
PT WAS LAYING IN BED WITH HIS EYES OPEN TOOK VITALS, GOT PT FRESH ICE WATER IN PAPER CUP DINNER WAS BROUGHT IN, GREGORY GONGORA PLACED PT ON HIGH ALVAREZ POSITION AND MOVED HIS DINNER TRAY AND FRESH ICE WATER IN FRONT OF HIM SO HE COULD EAT CALL LIGHT WAS IN REACH OF THIS PT ROOM WAS CLEAN AND PICKED UP
--- NOTE | 2025-01-13 19:19 | NUR ---
REPORT RECEIVED FROM EDEN JENSEN. PATIENT RESTING IN BED COMFORTABLY, IVF CONTINUING TO INFUSE WITHOUT DIFFICULTY. RESPIRATIONS EVEN AND UNLABORED. NO NEEDS IDENTIFIED.
[2025-01-13 20:13] LABS: ANION GAP 9.7 (7-21); BUN/CREATININE RATIO 9.58 (6.0-28.6); CALCIUM 8.5 mg/dL (8.5-10.1); CREATININE, SERUM 0.73 mg/dL (0.70-1.30); POTASSIUM 3.7 mmol/L (3.5-5.1)
--- NOTE | 2025-01-13 20:29 | NUR ---
Dr Baker called this unit. "NA levels up to where they should be. DC IVF.". IVF stopped at this time. SL patent, flushes easily. POP and ice water given on requets. flat affect, cooperative, answers appropriate when asked wuestion. IN bed. calm
--- NOTE | 2025-01-13 20:50 | NUR ---
VS OBTAINED AND RECORDED. INTAKE AND OUTPUT DOCUMENTED, ASSESSMENT COMPLETED. PATIENT ALERT AND ORIENTED X4, SCHEDULED MEDS ADMINISTERED PER ORDER. DENIES ANY PAIN AND ANY NEEDS AT THIS TIME. CALL LIGHT IN REACH.
--- NOTE | 2025-01-13 21:02 | NUR ---
BED ALARMING. PATIENT UP TO USE THE TOILET. PATIENT VOIDED 800ML YELLOW URINE. PATIENT IS BACK IN BED. ALARM BED IS ON FOR SAFETY. PATIENT DENIES FURTHER NEEDS.
--- NOTE | 2025-01-14 00:18 | NUR ---
PATIENT RESTING WITH EYES CLOSED, RESPIRATIONS EVEN AND UNLABORED. NO NEEDS IDENTIFIED, CALL LIGHT IN REACH.
[2025-01-14 00:23] LABS: ANION GAP 9.8 (7-21); BUN/CREATININE RATIO 8.33 (6.0-28.6); CALCIUM 8.6 mg/dL (8.5-10.1); CREATININE, SERUM 0.72 mg/dL (0.70-1.30); POTASSIUM 3.8 mmol/L (3.5-5.1)
--- NOTE | 2025-01-14 01:23 | NUR ---
PATIENT RESTING IN BED WITH EYES CLOSED, RESPIRATIONS EVEN AND UNLABORED. IN VISUAL SITE FROM THE NURSES STATION. NO NEEDS IDENTIFIED, CALL LIGHT IN REACH.
--- NOTE | 2025-01-14 03:31 | NUR ---
PATIENT RESTING WITH EYES CLOSED, RESPIRATIONS ARE EVEN AND UNLABORED. NO NEEDS IDENTIFIED, CALL LIGHT IN REACH. BED ALARM ON.
[2025-01-14 05:25] VITALS: BP 135/68
--- NOTE | 2025-01-14 05:28 | NUR ---
VS OBTAINED AND RECORDED. PATIENT ALERT AND ORIENTED X4, COOPERATIVE AND APPROPRIATE THIS MORNING. GIVEN JUICE PER REQUEST. NO FURTHER NEEDS, CALL LIGHT IN REACH.
[2025-01-14 05:36] LABS: EOSINOPHILS 0.5 % (0.8-7.0); HEMATOCRIT 38.4 % (40.1-51.0); HEMOGLOBIN 13.7 g/dL (13.7-17.5); LYMPHOCYTES 29.3 % (21.8-53.1); MCH 31.7 PG (25.7-32.2); MCHC 35.7 g/dL (32.3-36.5); MCV 88.9 fL (79.0-92.2); NEUTROPHILS 59.7 % (34.0-67.9); PLATELET COUNT 351 K/uL (163-337); RBC 4.32 M/uL (4.63-6.08)
[2025-01-14 06:01] LABS: ALBUMIN 3.6 g/dL (3.4-5.0); ALBUMIN/GLOBULIN RATIO 1.24 (1.1-2.4); ANION GAP 13.7 (7-21); BILIRUBIN, TOTAL 0.4 mg/dL (0.2-1.0); BUN/CREATININE RATIO 7.69 (6.0-28.6); CALCIUM 8.7 mg/dL (8.5-10.1); CREATININE, SERUM 0.78 mg/dL (0.70-1.30); POTASSIUM 3.7 mmol/L (3.5-5.1); PROTEIN, TOTAL 6.5 g/dL (6.4-8.2)
--- NOTE | 2025-01-14 07:04 | NUR ---
VERBAL REPORT RECEIVED FROM EDEN LAMBERT. PT RESTS IN BED WITH EYES CLOSED, RESP EVEN AND UNLABORED.
[2025-01-14] MEDS ORDERED: DEXTROSE 5% 1,000 ML IV SCH (07:30)
[2025-01-14 09:23] VITALS: BP 132/62
--- NOTE | 2025-01-14 10:51 | NUR ---
HOURLY ROUNDING. PATIENT IS A STAND BY ASSIST GOING TO THE RESTROOM. HE DID WELL GETTING BACK IN BED. NO REQUEST AT THIS TIME. PATIENT ATE WELL FOR BREAKFEAST. I' AND O'S HAVE BEEN DOCUMENTED.
--- NOTE | 2025-01-14 11:48 | NUR ---
PT AWAKE AND ALERT IN BED, DR. OSEGUERA IN ROOM, SPEAKS WITH PT. NO REQUESTS AT THIS TIME. [facility] VISITS.
[2025-01-14 12:35] LABS: ANION GAP 11.6 (7-21); BUN/CREATININE RATIO 9.09 (6.0-28.6); CALCIUM 8.9 mg/dL (8.5-10.1); CREATININE, SERUM 0.77 mg/dL (0.70-1.30); POTASSIUM 3.6 mmol/L (3.5-5.1)
[2025-01-14 13:15] VITALS: BP 116/63; BP 145/77
--- NOTE | 2025-01-14 13:33 | NUR ---
DR. OSEGUERA NOTIFIED OF [facility] AND GIL[facility] HERE FOR [facility]. NEW ORDER RECEIVED FOR STOP D5W INFUSION. INFUSION STOPPED.
--- NOTE | 2025-01-14 17:30 | NUR ---
PT SITS UP IN BED, WATCHES TV, DINNER AT BEDSIDE, CALL LIGHT IN REACH. NO REQUESTS AT THIS TIME.
[2025-01-14 18:15] VITALS: BP 126/63
--- NOTE | 2025-01-14 18:23 | NUR ---
PT SITS UP IN RECLINER, CALL LIGHT IN REACH, NO REQUESTS AT THIS TIME.
--- NOTE | 2025-01-14 19:07 | NUR ---
REPORT RECEIVED FROM EDEN JENSEN. PATIENT SITTING UP IN HIS CHAIR. PATIENT DENIES ANY NEEDS AT THIS TIME. DOOR AND CURTAIN ARE OPEN FOR DIRECT VIZUALIZATION FROM NURSES STATION. CALL LIGHT AND PERSONAL BELONGINGS ARE WITHIN REACH.
--- NOTE | 2025-01-14 20:20 | NUR ---
FITTING ROOM INSPECTOR GAVE JUICE TO PT.
--- NOTE | 2025-01-14 20:43 | NUR ---
PATIENT ASSESSMENT COMPLETED. PATIENT SITTING UP IN BED WATCHING TV. PATIENT MEDICATED PER EMAR. FRESH ICE WATER AND ANOTHER CRANBERRY JUICE PROVIDED. PATIENT WITHOUT FURTHER NEEDS AT THIS TIME. CALL LIGHT AND PERSONAL BELONGINGS ARE WITHIN REACH.
[2025-01-14 20:48] VITALS: BP 114/70
[2025-01-14 21:00] VITALS: BP 114/70
--- NOTE | 2025-01-14 21:22 | NUR ---
PHONE CALL FROM DEANGELO WITH [facility] WILL REVIEW CHART IN AM REGARDING PATIENT ADMISSION TO INPATIENT FACILITY.
--- NOTE | 2025-01-14 21:56 | NUR ---
LAB AT BEDSIDE FOR BLOOD DRAW
[2025-01-14 22:11] LABS: ANION GAP 10.7 (7-21); BUN/CREATININE RATIO 9.27 (6.0-28.6); CALCIUM 8.7 mg/dL (8.5-10.1); CREATININE, SERUM 0.97 mg/dL (0.70-1.30); POTASSIUM 3.7 mmol/L (3.5-5.1)
--- NOTE | 2025-01-14 22:50 | NUR ---
PATIENT RESTING IN BED ON HIS BACK WITH HIS EYES CLOSED AND HIS MOUTH OPEN. EVEN AND UNLABORED RESPIRATIONS NOTED. CALL LIGHT AND PERSONAL BELONGINGS ARE WITHIN REACH.
--- NOTE | 2025-01-14 23:24 | NUR ---
PATIENT RESTING IN BED ON HIS BACK WITH HIS EYES CLOSED. EVEN AND UNLABORED RESPIRATIONS NOTED. CALL LIGHT AND PERSONAL BELONGINGS ARE WITHIN REACH.
--- NOTE | 2025-01-15 00:41 | NUR ---
PATIENT RESTING IN BED WITH HIS EYES CLOSED. EVEN AND UNLABORED RESPIRATIONS NOTED. CALL LIGHT AND PERSONAL BELONGINGS ARE WITHIN REACH.
--- NOTE | 2025-01-15 01:45 | NUR ---
PATIENT RESTING IN BED ON HIS BACK WITH HIS EYES CLOSED. EVEN AND UNLABORED RESPIRATIONS NOTED. CALL LIGHT AND PERSONAL BELONGINGS ARE WITHIN REACH.
--- NOTE | 2025-01-15 02:37 | NUR ---
PATIENT SITTING UP IN BED WATCHING TV. PATIENT DENIES ANY NEEDS AT THIS TIME. CALL LIGHT AND PERSONAL BELONGINGS ARE WITHIN REACH.
--- NOTE | 2025-01-15 03:08 | NUR ---
ANSWERED CALL LIGHT. PATIENT UP TO THE TOILET INDEPENDENTLY BUT HE HAS TO CALL THE STAFF TO TURN THE BED ALARM OFF. PATIENT VOIDED 400ML DARK TEA COLORED URINE. PATIENT IS BACK IN BED. ICE WATER AND ORANGE JUICE PROVIDED PER PATIENT. BED ALARM ON FOR SAFETY.
--- NOTE | 2025-01-15 03:39 | NUR ---
PATIENT RESTING IN BED ON HIS BACK WITH HIS EYES CLOSED. EVEN AND UNLABORED RESPIRATIONS NOTED. CALL LIGHT AND PERSONAL BELONGINGS ARE WITHIN REACH.
--- NOTE | 2025-01-15 04:37 | NUR ---
PATIENT RESTING IN BED WITH HIS EYES CLOSED. EVEN AND UNLABORED RESPIRATIONS NOTED. CALL LIGHT AND PERSONAL BELONGINGS ARE WITHIN REACH.
[2025-01-15 05:27] LABS: EOSINOPHILS 0.3 % (0.8-7.0); HEMATOCRIT 37.4 % (40.1-51.0); HEMOGLOBIN 13.1 g/dL (13.7-17.5); MCH 31.4 PG (25.7-32.2); MCV 89.7 fL (79.0-92.2); MONOCYTES 8.5 % (5.3-12.2); PLATELET COUNT 320 K/uL (163-337); RBC 4.17 M/uL (4.63-6.08)
[2025-01-15 05:42] VITALS: BP 128/76
[2025-01-15 05:42] LABS: ANION GAP 9.9 (7-21); BUN/CREATININE RATIO 10.34 (6.0-28.6); CALCIUM 8.7 mg/dL (8.5-10.1); CREATININE, SERUM 0.87 mg/dL (0.70-1.30); POTASSIUM 3.9 mmol/L (3.5-5.1)
--- NOTE | 2025-01-15 05:46 | NUR ---
PATIENT FOCUS ASSESSMENT COMPLETED. LUNG SOUNDS ARE DIMINISHED IN THE LEFT UPPER AND LOWER LOBES, AND CLEAR IN THE RIGHT UPPER AND LOWER LOBES. PATIENT IS WITHOUT FURTHER NEEDS AT THIS TIME. CALL LIGHT AND PERSONAL BELONGINGS ARE WITHIN REACH.
--- NOTE | 2025-01-15 07:05 | NUR ---
VERBAL REPORT RECEIVED FROM EDEN GONZALEZ. RESPIRATIONS EVEN AND UNLABORED. BED IN LOW POSITION, CALL LIGHT IN REACH.
[2025-01-15 09:07] VITALS: BP 128/59
--- NOTE | 2025-01-15 09:20 | NUR ---
Spoke with Willi. He has been working with [facility] and plans on going to the [facility] [place]. He has not been accepted yet. He has been livingin an apartment on his own. He does not use any DME. He had a suicide attempt in November. He denies concerns for safety or financial. Awaiting confirmation of acceptance to [facility].
--- NOTE | 2025-01-15 12:44 | NUR ---
PATIENT RESTIING IN BED, EYES CLOSED. RESPIRATIONS EVEN AND UNLABORED. CALL LIGHT IN REACH, NO REQUESTS AT THIS TIME.
[2025-01-15 12:52] VITALS: BP 139/79
--- NOTE | 2025-01-15 13:14 | NUR ---
Called [facility] for update. Pt has been accepted by [facility]. Pt cannot go until his guardian Evita Izaguirre completes a packet for [facility]. [facility] have contacted her, but she is golfing and cannot complete the packet. [facility] will transport pt when paperwork is completed.
--- NOTE | 2025-01-15 14:43 | NUR ---
HOURLY ROUNDING. PATIENT APPEARS TO BE SLEEPY, HE'S BEEN USING THE RESTROOM, AND HAS NOT REPORTED PAIN. CALL LIGHT HAS BEEN PLACED WITHIN
[2025-01-15 18:09] VITALS: BP 104/79
--- NOTE | 2025-01-15 19:47 | NUR ---
RECEIVED REPORT. PT ALERT, UP IN RECLINER. NO NEEDS PRESENTLY, CALL LIGHT IN REACH
--- NOTE | 2025-01-15 20:19 | NUR ---
CALL LIGHT ANSWERED, pt UP SBA FROM CHAIR TO BED, BED ALARM ON FOR SAFETY AND CALL LIGHT IN REACH. FRESH ICE WATER AND ORANGE JUICE PROVIDED PER pt REQUEST, OKAY'D BY PRIMARY RN.
[2025-01-15 21:14] VITALS: BP 135/81
--- NOTE | 2025-01-15 22:10 | NUR ---
ASSESSMENT, EVENING MEDS. NO OTHER NEEDS, CALL LIGHT IN REACH
--- NOTE | 2025-01-15 22:28 | NUR ---
PT IV DISPLACED BY PT. INSERTED NEW IV IN L AC AND RESTARTED IV FLUIDS. ATIVAN GIVEN BY REFRIGERATION SPECIALIST. BED ALARM ACTIVE
--- NOTE | 2025-01-16 00:01 | NUR ---
PT RESTING IN BED WITH EYES CLOSED, RISE ADN FALL OF CHEST OBSERVED. [facility]
--- NOTE | 2025-01-16 01:15 | NUR ---
PT RESTING IN BED WITH EYES CLOSED, RISE AND FALL OF CHEST OBSERVED. CALL LIGHT IN REACH
--- NOTE | 2025-01-16 03:17 | NUR ---
PATIENT CALLED. BED ALARM TURNED OFF. INDEPENDENT. TO THE BATHROOM AND BACK TO BED. URINATED UNMEASURED. BED ALARM ON FOR SAFETY. BOARD UPDATED. ICE WATER REFILLED.
--- NOTE | 2025-01-16 05:18 | NUR ---
PT RESTING WTIH EYES CLOSED, RISE NAD FALL OF CHEST OBSERVED. CALL LIGHT IN REACH
[2025-01-16 05:31] VITALS: BP 133/75
--- NOTE | 2025-01-16 08:07 | NUR ---
PT RESTING IN BED, AWAKE UPON ENTERING. RECEIVED REPORT FROM NIGHT RN. PT DENIES ANY NEEDS, CONFIRMS HER PLANS ON LEAVING THIS MORNING AT 0930. INFORMED BREAKFAST WILL BE HERE PRIOR TO LEAVING SO HE CAN EAT. DENIES ANY NEEDS AT THIS TIME. CALL LIGHT WITHIN REACH.
[2025-01-16] MEDS ORDERED: CEFDINIR300 MG PO (08:21)
[2025-01-16 09:04] VITALS: BP 125/72
== END 2025-01-16 09:42 | disposition home or self-care (01) | DRG 641 ==
LOC: ED 21:40 → MS 01-12 09:50
PROVIDERS: Emergency Medicine; Family Medicine; ADMIT Family Medicine; ATTEND Family Medicine
DX: E87.1 Hypo-osmolality and hyponatremia (principal); N39.0 Urinary tract infection, site not specified; F25.0 Schizoaffective disorder, bipolar type; Z66 Do not resuscitate; F17.210 Nicotine dependence, cigarettes, uncomplicated; D64.9 Anemia, unspecified; Z98.890 Other specified postprocedural states; Z79.899 Other long term (current) drug therapy; Z88.0 Allergy status to penicillin; Z88.6 Allergy status to analgesic agent; Z88.8 Allergy status to other drugs, medicaments and biological substances
CPT/HCPCS: 36415; 80048; 80053; 80307; 81001; 83735; 84100; 84295; 84443; 84484; 85025; 87088; 96360; 96361; 99285-25; A9270; G0480; J1650; J7070; J7131

== ENCOUNTER 2025-04-17 18:21 | Emergency (ER) | payer MEDICARE, OTHER ==
[~2025-04-17] VITALS: Ht 180.3 cm; Wt 82.0 kg
[~2025-04-17 18:21] MED LIST changes: +CEFDINIR300 MG PO; +METFORMIN HCL500 MG PO; +OMEPRAZOLE20 MG PO
[2025-04-17] MEDS ORDERED: OLANZAPINE ODT10 MG PO (18:44)
[2025-04-17] MEDS ORDERED: GABAPENTIN300 MG PO (18:45)
[2025-04-17 18:55] LABS: BASOPHILS 0.7 % (0.2-1.2); EOSINOPHILS 5.7 % (0.8-7.0); LYMPHOCYTES 36.8 % (21.8-53.1); MCH 31.9 PG (25.7-32.2); MCHC 34.7 g/dL (32.3-36.5); MCV 91.9 fL (79.0-92.2); MONOCYTES 6.6 % (5.3-12.2); NEUTROPHILS 49.9 % (34.0-67.9); RBC 4.30 M/uL (4.63-6.08)
[2025-04-17 19:18] LABS: ALCOHOL, MEDICAL <3 ng/dL (<3); ALT (SGPT) 22 U/L (14-59); AST (SGOT) 20 U/L (15-37); GLOMERULAR FILTRATION RATE,EST 111 mL/min (>60); PROTEIN, TOTAL 6.4 g/dL (6.4-8.2); TSH, 3RD GENERATION 0.745 uIU/mL (0.358-3.740); UREA NITROGEN 5 mg/dL (7-18)
[2025-04-17 22:34] LABS: BLOOD/HGB, URINE NEGATIVE (Negative); KETONE, URINE NEGATIVE (Negative); LEUK ESTERASE, URINE NEGATIVE (negative); NITRITE, URINE NEGATIVE (negative)
[2025-04-17 22:50] LABS: AMPHETAMINES, URINE NEGATIVE (NEGATIVE); BARBITURATES, URINE NEGATIVE (NEGATIVE); BENZODIAZEPINE, URINE NEGATIVE (NEGATIVE); CANNABINOID, URINE NEGATIVE (NEGATIVE); COCAINE, URINE NEGATIVE (NEGATIVE); ECSTASY, URINE NEGATIVE (NEGATIVE); FENTANYL, URINE NEGATIVE (NEGATIVE); METHADONE, URINE NEGATIVE (NEGATIVE); OPIATES, URINE NEGATIVE (NEGATIVE); OXYCODONE, URINE NEGATIVE (NEGATIVE); PHENCYCLIDINE, URINE NEGATIVE (NEGATIVE)
[2025-04-18] MEDS ORDERED: OLANZapine 10 MG TABDIS PO ONE (10:45)
[2025-04-18] MEDS ORDERED: OLANZapine 10 MG TABDIS PO SCH (21:00)
[2025-04-21] MEDS ORDERED: LORazepam 1 MG TAB PO PRN (18:00)
[2025-04-23 16:36] VITALS: BP 111/70
== END 2025-04-23 16:38 | disposition home or self-care (01) ==
LOC: ED 18:21
PROVIDERS: Emergency Medicine; Family Medicine
DX: F25.9 Schizoaffective disorder, unspecified (principal); F17.200 Nicotine dependence, unspecified, uncomplicated; Z88.0 Allergy status to penicillin; Z88.6 Allergy status to analgesic agent; Z88.8 Allergy status to other drugs, medicaments and biological substances; Z79.899 Other long term (current) drug therapy
CPT/HCPCS: 36415; 80053; 80307; 81003; 84443; 85025; 99283; A9270; A9270-GY; G0480; Q3014